=== PATIENT | male | born 1950 | race Caucasian/White ===

== ENCOUNTER → 2022-06-29 11:53 | Outpatient (BNVA) | payer MEDICARE, OTHER, SELFPAY | PROVIDERS: PCP Family Medicine; Visit Provider Family Medicine | DX: N18.9 Chronic kidney disease, unspecified (principal); E11.69 Type 2 diabetes mellitus with other specified complication; E66.9 Obesity, unspecified; M10.9 Gout, unspecified; E55.9 Vitamin D deficiency, unspecified; L29.9 Pruritus, unspecified; R07.9 Chest pain, unspecified; R94.39 Abnormal result of other cardiovascular function study; F41.9 Anxiety disorder, unspecified; N40.0 Benign prostatic hyperplasia without lower urinary tract symptoms | CPT/HCPCS: 80053; 80061; 81000; 82043; 82306; 82310; 82728; 83036; 83735; 83970; 84443; 84550; 85025 ==

== ENCOUNTER → 2022-08-04 12:07 | Outpatient (BNVA) | payer MEDICARE, OTHER, SELFPAY | PROVIDERS: PCP Family Medicine; Visit Provider Family Medicine | DX: N18.9 Chronic kidney disease, unspecified (principal); E11.69 Type 2 diabetes mellitus with other specified complication; E66.9 Obesity, unspecified; M10.9 Gout, unspecified; F41.9 Anxiety disorder, unspecified; N40.0 Benign prostatic hyperplasia without lower urinary tract symptoms; R07.9 Chest pain, unspecified; R94.39 Abnormal result of other cardiovascular function study | CPT/HCPCS: 80048 ==

== ENCOUNTER 2022-08-15 07:28 | Outpatient (CLI) | payer MEDICARE, OTHER, SELFPAY ==
--- NOTE | 2022-08-15 08:00 | USCV_ITS ---
Francisco Neal Age: 72 Gender: M : 1950 Exam Date: 08/15/2022 07:41 Ordering Phys: Arelis Field MD Technologist: Hernan Mckenzie Exam Location: [facility] Indication: abnormal echo BP: 132 / 75 HR: 77 Rhythm: Sinus Technical Quality: Adequate MEASUREMENTS (Male / Female) Normal Values 2D ECHO LV Diastolic Diameter PLAX 4.2 cm 4.2 - 5.9 / 3.9 - 5.3 cm LV Systolic Diameter PLAX 2.2 cm IVS Diastolic Thickness 1.2 cm 0.6 - 1.0 / 0.6 - 0.9 cm IVS Systolic Thickness 1.3 cm LVPW Diastolic Thickness 0.8 cm 0.6 - 1.0 / 0.6 - 0.9 cm LVPW Systolic Thickness 1.4 cm LVOT Diameter 2.1 cm LV Ejection Fraction 2D Teich 79.4 % LV Ejection Fraction MOD 2C 73.1 % LV Ejection Fraction 2C AL 73.5 % LA Diameter 3.9 cm IVC Diameter 1.5 cm M-MODE Aortic Annulus Diameter 3.7 cm LA Ao Ratio MM 1.0 MV E Point Septal Separation 1.0 cm DOPPLER AV Peak Velocity 119.0 cm/s LVOT Peak Velocity 92.0 cm/s AV Area Cont Eq vti 3.0 cm squared AV Area Cont Eq pk 2.6 cm squared MV Area PHT 5.0 cm squared Mitral E to A Ratio 0.6 MV E' Velocity 29.0 cm/s Mitral E to MV E' Ratio 5.6 Mitral E to LV E' Lateral Ratio 5.6 Mitral E to LV E' Septal Ratio 5.6 TR Peak Velocity 196.0 cm/s TR Peak Gradient 15.4 mmHg TV Peak E Velocity 94.0 cm/s Right Atrial Pressure 3.0 mmHg Pulmonary Artery Systolic Pressu 18.4 mmHg RV Acceleration Time 0.2 s FINDINGS Left Ventricle Normal left ventricular size with slightly diminished ejection fraction of 50%. Mild diffuse hypokinesia of the lateral wall segments. Grade I/IV diastolic dysfunction (abnormal relaxation filling pattern), normal to mildly elevated filling pressures. Right Ventricle The right ventricle is normal in size and function. Right Atrium The right atrium is normal in size. Left Atrium Normal left atrial size. Mitral Valve Mildly thickened mitral valve. Mild mitral annular calcification. Aortic Valve Thickened aortic valve. Tricuspid Valve No gross abnormalities noted Pulmonic Valve No gross abnormalities noted Pericardium No pericardial effusion. Aorta Normal ascending aorta dimension. IVC The inferior vena cava appears normal. CONCLUSIONS Normal left ventricular size with slightly diminished ejection fraction of 50%.(Visual). Mild diffuse hypokinesia of the lateral wall segments. Grade I/IV diastolic dysfunction (abnormal relaxation filling pattern), normal to mildly elevated filling pressures. Mildly thickened mitral valve. Mild mitral annular calcification. Thickened aortic valve. There is no pericardial effusion. There are no intracardiac masses. No similar previous studies are available for comparison Dr Martha Power MD FACC (Electronically Signed) Final Date: 15 August 2022 19:49 S
== END 2022-08-15 07:29 | disposition home or self-care (01) ==
LOC: RAD 07:28
PROVIDERS: PCP Family Medicine; Visit Provider Family Medicine
DX: I08.0 Rheumatic disorders of both mitral and aortic valves (principal); R07.9 Chest pain, unspecified; R94.39 Abnormal result of other cardiovascular function study
CPT/HCPCS: 93306

== ENCOUNTER 2022-09-07 07:51 | Outpatient (CLI) | payer MEDICARE, OTHER, SELFPAY ==
--- NOTE | 2022-09-07 | ECG_ITS ---
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 Interpretive Statements NAME OF STUDY: LEXISCAN SESTAMIBI STRESS TEST INDICATION: Chest Pain PROCEDURE: At the baseline, the blood pressure was 131/67 mm Hg with a heart rate of 67 bpm. The electrocardiogram showed sinus rhythm, normal axis. Normal ST and T's. ??? The Lexiscan was infused over a period of 20 seconds. A total of 0.4 milligrams of Lexiscan was infused. The stress phase was continued for a total of 5 minutes. Heart rate at the end of the stress phase was 86 bpm with a blood pressure of 134/49 mm Hg. The EKG at the peak infusion revealed sinus rhythm with no significant ST and T wave changes. ??? Sestamibi was injected 20 seconds after the Lexiscan infusion. ??? Blood pressure at the end of the recovery phase was 135/59 mm Hg with a heart rate of 86 beats per minute. ??? CONCLUSION: 1. No significant EKG changes with the LexiScan infusion. 2. No LexiScan induced chest pain or cardiac arrhythmia. 3. Normal blood pressure and heart rate response. 4. Sestamibi/sestamibi perfusion scan pending; see separate report. Electronically Signed On 09-11-2022 9:42:31 PROGRAM ATTENDANT by Ting Solis M.D. [id number]
[2022-09-07 08:16] VITALS: BMI 38.6
--- NOTE | 2022-09-07 08:43 | NMCV_ITS ---
NM shira perf SPECT r/s* [id number] Francisco Neal Age: 72 Gender: M : 1950 Exam Date: 09/07/2022 08:43 Ordering Phys: Arelis Field MD Technologist: DARSHAN Vasquez Exam Location: [facility] Indications: CHEST PAIN STRESS TEST Please see separate [facility] for full findings IMAGE PROTOCOL Rest/Stress 1 Lexiscan Day Radiopharmaceutical Dose (mCi) Administration Site Administered by Rest: Tc-99m 11.0 IV DARSHAN Junior Sestamibi Stress:Tc-99m 32.4 IV DARSHAN Junior Sestamibi Rest: 07-Sep-2022 60 Discovery 630 Stress: 07-Sep-2022 30 Discovery 630 0.4mg Lexiscan. Images obtained in supine and prone position. SPECT RESULTS Technical Quality: Excellent Raw Data Analysis: Normal Image Corrections: No attenuation or motion correction applied Summed Stress Score: 0 Summed Rest Score: 0 Summed Difference Score: 0 PERFUSION FINDINGS Small sized perfusion abnormality of mild severity of apical inferior and apical septal hoffman on rest images with improved tracer uptake on stress images. This is suggestive of attenuation artifact. FUNCTIONAL RESULTS (calculated via Gated SPECT) Stress Image LV EF (%): 72 Stress EDV (mL):97 TID: 0.97 Stress ESV (mL):27 FUNCTIONAL FINDINGS: The left ventricle is normal in size. Transient Ischemia Dilatation of 0.97. The left ventricular ejection fraction is normal with a value of 72%. There is normal left ventricular wall thickening. Normal end diastolic and end systolic volumes. IMPRESSIONS 1. Myocardial perfusion imaging is normal. 2. Overall left ventricular systolic function is normal without regional wall motion abnormalities, LVEF=72%. 3. EKG portion of the study will be reported separately. 4. Scan indicates low risk for cardiac events. Ting Solis MD (Electronically Signed) Final Date: 07 September 2022 12:58 S
[2022-09-07] MEDS: regadenoson 0.4 Mg/5 ml Syringe IVP (09:51)
[2022-09-07 10:25] VITALS: BP 136/85; PULSE 72
== END 2022-09-07 07:52 | disposition home or self-care (01) ==
LOC: CDL 07:57
PROVIDERS: PCP Family Medicine; Visit Provider Family Medicine
DX: R07.9 Chest pain, unspecified (principal)
CPT/HCPCS: 36415; 78452; 93017; 96374; A9500; J2785

== ENCOUNTER 2024-04-11 10:28 | Observation (INO) | payer MEDICARE, OTHER, SELFPAY ==
[2024-04-11] VITALS (10 sets, daily range): BP systolic 110–143; BP diastolic 57–87; PULSE 92–98; RESP 18–21; TEMP 36.6; O2SAT 94–99
--- NOTE | 2024-04-11 10:52 | ECG_ITS ---
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 Measurements Intervals [place] Rate: 96 P: 32 TX: 183 QRS: 5 QRSD: 94 T: 27 QT: 347 QTc: 439 Interpretive Statements SINUS RHYTHM INDETERMINATE AXIS LOW QRS VOLTAGE [QRS DEFLECTION < 0.5/1.0 mV IN LIMB/CHEST LEADS] MINIMAL ST DEPRESSION [0.025+ mV ST DEPRESSION] No previous ECG available for comparison Electronically Signed On 04-11-2024 11:19:17 CDT by Sage Rayo M.D. [id number]
--- NOTE | 2024-04-11 10:52 | XR_ITS ---
WS: [id number] XR chest 1V portable [id number] REASON FOR EXAM: dyspnea/cough FINDINGS: The heart and mediastinum are within normal limits. There is calcified granulomas disease in both hemithoraces. There is elevation of the right hemidiaphragm. No acute or subacute pulmonary parenchymal or pleural abnormality. Moderate degenerative spondylosis in the mid and lower thoracic spine. Significant osteoarthritis in both shoulder joints. XR/XR chest 1V portable [id number] IMPRESSION: No acute chest abnormality.
[2024-04-11 10:59] LABS: Basophils % 0.4 %; Eosinophils # 0.3 10^3/uL (0.0-0.8); Eosinophils % 3.8 %; Hematocrit 30.2 % (37-53); Lymphocytes # 1.6 10^3/uL (0.8-4.8); Lymphocytes % 22.8 %; Mean Corpuscular HGB Conc 30.8 g/dL (30-55); Mean Corpuscular Hemoglobin 28.2 pg (27-33); Mean Corpuscular Volume 91.5 fl (82-101); Mean Platelet Volume 9.4 fL (7.4-10.4); Monocytes # 0.4 10^3/uL (0.2-0.9); Monocytes % 6.1 %; Neutrophils # 4.49 10^3/uL (1.8-7.7); Neutrophils % 65.2 %; Nucleated Red Blood Cells % 0 %; Platelet Count 377 10^3/cmm (157-399); Red Cell Distribution Width 14.2 % (12.1-15.1); White Blood Count 6.89 10^3/uL (3.29-11.43)
[2024-04-11 11:20] LABS: Alanine Aminotransferase 15 U/L (0-41); Albumin Level 3.4 g/dL (3.5-5.2); Alkaline Phosphatase 115 U/L (40-130); Blood Urea Nitrogen 12 mg/dL (8-23); Calcium 8.6 mg/dL (8.5-10.5); Carbon Dioxide 24 mmol/L (22-29); Chloride 103 mmol/L (98-107); Creatinine Clr Calc Pharmacy 61.3732; Globulin 2.6 g/dL (1.3-4.6); Glucose 190 mg/dL (65-115); Osmolality Calculated 295 mOsm/kg (285-295); Sodium 140 mmol/L (136-145); Total Bilirubin 0.2 mg/dL (0.15-1.2)
[2024-04-11 11:23] LABS: Anion Gap 17.9 (5-19); Aspartate Amino Transferase 24 U/L (0-40); Potassium 4.9 mmol/L (3.5-5.1)
--- NOTE | 2024-04-11 11:45 | CT_ITS ---
WS: [id number] CT HEAD NONCONTRAST HISTORY: AMS - recent unwitnessed fall TECHNIQUE: Contiguous axial imaging performed through the brain in 2.5 mm imaging. Bone and soft tiss ue windows. Sagittal and coronal reformats reviewed. All CT scans at [facility] use at least one of these dose optimization techniques: automated exposure control; mA and/or kV adjustment per pa tient size (includes targeted exams where dose is matched to clinical indication); or iterative recon struction. DLP: 1073.18 mGy.cm COMPARISON: 02/14/2024 No acute intracranial hemorrhage, midline shift or mass effect. Diffuse cerebral atrophy and chronic microvascular white matter disease. No acute infarct or sulcal e ffacement. Similar to the prior study. Mild cerebellar atrophy. Ventricles: Normal size with no hydrocephalus. Paranasal sinuses: As visualized are clear. Mastoid air cells: Well pneumatized. Calvarium and scalp: No skull fracture. Acute small scalp hematoma centered over the LEFT lateral fro ntal bone. CT/CT head wo con* [id number] IMPRESSION: 1. No acute intracranial hemorrhage or edema. 2. Diffuse atrophy with small vessel ischemic disease. 3. Small acute LEFT frontal scalp hematoma.
[2024-04-11 12:06] LABS: Charge for UA Resulting for Rev
[2024-04-11 12:09] LABS: Lactic Sepsis W/Reflex 2.4 mmol/L (0.5-2.2)
--- NOTE | 2024-04-11 12:16 | ED_ITS ---
HPI - Altered Mental Status 2 General: Chief Complaint: Altered Mental Status Stated Complaint: ams Time Seen by Provider: 04/11/24 10:35 History of Present Illness: 74-year-old male brought in from local [facility] by EMS. Report of a fall last evening increasing altered mental status. He was admitted to the group home for rehab from the [facility]. His only complaint at the time we see him was complaining of discomfort with urination denies chest pain or shortness of breath he is rather pleasantly confused at this time Review of Systems 2 Const: Denies: fever(s) or chills Card: Denies: chest pain Resp: Denies: dyspnea GI: Denies: abdominal pain : Reports: dysuria; Denies: urinary frequency or urinary urgency Musc: Denies: neck pain or back pain Skin/Breast: Denies: rash PFSH ED 2 PFSH: Medical History History of asthma BPH (benign prostatic hyperplasia) Anxiety Gout Diabetes mellitus type 2 in obese Chronic kidney disease Osteoarthritis of knees, bilateral Surgical History History of cardiac catheterization History of nasal septoplasty History of excision of mass abdominal wall hematoma Family History Father CAD (coronary artery disease) Hypertension Lung disease Hyperlipidemia Mother Cancer Sister Diabetes Cancer Denies family history of Dementia Chronic kidney disease (CKD) Stroke Social History Smoking and tobacco/nicotine status: former use of tobacco/nicotine Quit status (tobacco/nicotine): has quit using Year quit tobacco: 2009 Alcohol intake: former Year of sobriety/quit date alcohol: 1999 Substance/Drug Use: never Marital status: Number of children: 3 service: No Physical Exam 2 Const: GENERAL APPEARANCE: cooperative NUTRITIONAL APPEARANCE: obese O RIENTATION/CONSCIOUSNESS: Yes awake and Yes confused HENMT: COMMON NORMALS: normocephalic, atraumatic and hearing grossly normal bilaterally HEAD & SCALP: normocephalic and atraumatic Resp: COMMON NORMALS: normal respiratory effort, No retractions, No use of accessory muscles and clear to auscultation bilaterally AUSCULTATION: clear to auscultation bilaterally Cardio: COMMON NORMALS: regular rate, regular rhythm and No murmurs present (Cardio) RATE: regular rate RHYTHM: regular rhythm GI: COMMON NORMALS: Soft to palpation and No hepatosplenomegaly present A USCULTATION: Yes normoactive bowel sounds PALPATION: Yes Soft to palpation, No Tenderness to palpation present (GI), No Guarding due to palpation present (GI) and Yes No hepatosplenomegaly present Extremity: COMMON NORMALS: normal to inspection, capillary refill normal, no clubbing, cyanosis or edema, no calf tenderness and no pedal edema NARRATIVE EXTREMITY EXAM: 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 His lactic acid is slightly elevated his blood gas was unremarkable. He has no tachycardia or hypoxia he does have mild chronic kidney issue. Previously his CPK has been elevated repeat CPK today is normal. Ammonia level is also normal we will admit with lactic acidosis altered mental status discussed with hospitalist orders written Lab Data 04/11/24 10:18 04/11/24 10:18 Radiology Impressions Chest X-Ray 04/11/24 10:52 IMPRESSION: No acute chest abnormality. Head CT 04/11/24 11:45 IMPRESSION: 1. No acute intracranial hemorrhage or edema. 2. Diffuse atrophy with small vessel ischemic disease. 3. Small acute LEFT frontal scalp hematoma. Laboratory Results WBC 6.89 10^3/uL (3.29-11.43) 04/11/24 10:18 RBC 3.30 10^6/uL (3.85-5.65) L 04/11/24 10:18 Hgb 9.30 g/dL (11.27-16.99) L 04/11/24 10:18 Hct 30.2 % (37-53) L 04/11/24 10:18 MCV 91.5 fl (82-101) 04/11/24 10:18 MCH 28.2 pg (27-33) 04/11/24 10:18 MCHC 30.8 g/dL (30-55) 04/11/24 10:18 RDW 14.2 % (12.1-15.1) 04/11/24 10:18 Plt Count 377 10^3/cmm (157-399) 04/11/24 10:18 MPV 9.4 fL (7.4-10.4) 04/11/24 10:18 Neut % (Auto) 65.2 % 04/11/24 10:18 Lymph % (Auto) 22.8 % 04/11/24 10:18 [place] % (Auto) 6.1 % 04/11/24 10:18 Eos % (Auto) 3.8 % 04/11/24 10:18 Baso % (Auto) 0.4 % 04/11/24 10:18 Neut # (Auto) 4.49 10^3/uL (1.8-7.7) 04/11/24 10:18 Lymph # (Auto) 1.6 10^3/uL (0.8-4.8) 04/11/24 10:18 [place] # (Auto) 0.4 10^3/uL (0.2-0.9) 04/11/24 10:18 Eos # (Auto) 0.3 10^3/uL (0.0-0.8) 04/11/24 10:18 Baso # (Auto) 0.0 10^3/uL (0.0-0.1) 04/11/24 10:18 Nucleated RBC % (auto) 0 % 04/11/24 10:18 Nucleated RBCs # 0.0 /100WBC 04/11/24 10:18 D-Dimer 2.53 ug/mLFEU (0-0.59) H 04/11/24 10:18 Specimen Type Arterial 04/11/24 12:25 Sample Site Radial, right 04/11/24 12:25 ABG pH 7.42 (7.35-7.45) 04/11/24 12:25 ABG pCO2 39.9 mmHg (35-45) 04/11/24 12:25 ABG pO2 75.5 mmHg (80.0-100.0) L 04/11/24 12:25 ABG PO2/FiO2 Ratio 359 04/11/24 12:25 ABG HCO3 26.0 mmol/L (22-26) 04/11/24 12:25 ABG O2 Saturation 96.0 04/11/24 12:25 ABG Base Excess 1.4 mmol/L (-2.0-2.0) 04/11/24 12:25 Nahun Test Pos 04/11/24 12:25 A-a O2 Gradient 3.2 mmHg (5-10) L 04/11/24 12:25 Hematocrit 29.4 % (42-52) L 04/11/24 12:25 Hgb O2 Saturation 94.2 % (95-100) L 04/11/24 12:25 Carboxyhemoglobin 1.0 %THgb (0.4-20.1) 04/11/24 12:25 Methemoglobin 0.9 % (0.4-1.5) 04/11/24 12:25 Total Hemoglobin 9.6 g/dL (14-18) L 04/11/24 12:25 Sodium 142.0 mmol/L (131-143) 04/11/24 12:25 Potassium 4.0 mmol/L (3.5-5.0) 04/11/24 12:25 Glucose 162.0 mg/dL (70-115) H 04/11/24 12:25 Ionized Calcium 1.2 mmol/L (1.1-1.4) 04/11/24 12:25 O2 Delivery Device Room air 04/11/24 12:25 FiO2 21.0 % 04/11/24 12:25 Culinary Specialist ID [place] 04/11/24 12:25 Sodium 140 mmol/L (136-145) 04/11/24 10:18 Potassium 4.9 mmol/L (3.5-5.1) 04/11/24 10:18 Chloride 103 mmol/L (98-107) 04/11/24 10:18 Carbon Dioxide 24 mmol/L (22-29) 04/11/24 10:18 Anion Gap 17.9 (5-19) 04/11/24 10:18 BUN 12 mg/dL (8-23) 04/11/24 10:18 Creatinine 1.4 mg/dL (0.7-1.2) H 04/11/24 10:18 GFR Calculation Not Reportable 04/11/24 10:18 Glucose 190 mg/dL (65-115) H 04/11/24 10:18 Calculated Osmolality 295 mOsm/kg (285-295) 04/11/24 10:18 Lactic Acid 2.4 mmol/L (0.5-2.2) H 04/11/24 10:18 Lactic Acid (Sepsis) 2.3 mmol/L (0.5-2.2) H 04/11/24 13:06 Calcium 8.6 mg/dL (8.5-10.5) 04/11/24 10:18 Total Bilirubin 0.2 mg/dL (0.15-1.2) 04/11/24 10:18 AST 24 U/L (0-40) 04/11/24 10:18 ALT 15 U/L (0-41) 04/11/24 10:18 Alkaline Phosphatase 115 U/L (40-130) 04/11/24 10:18 Ammonia 31 umol/L (16-60) 04/11/24 16:15 Creatine Kinase 68 U/L (39-308) 04/11/24 10:18 Total Protein 6.0 g/dL (6.6-8.7) L 04/11/24 10:18 Albumin 3.4 g/dL (3.5-5.2) L 04/11/24 10:18 Globulin 2.6 g/dL (1.3-4.6) 04/11/24 10:18 Urine Color Yellow (Yellow) 04/11/24 12:00 Urine Appearance Clear (CLEAR) 04/11/24 12:00 Urine pH 5.5 (5-7) 04/11/24 12:00 Ur Specific [place] 1.016 (1.005-1.030) 04/11/24 12:00 Urine Protein Negative (Negative) 04/11/24 12:00 Urine Glucose (UA) Negative (Normal) 04/11/24 12:00 Urine Ketones Negative (Negative) 04/11/24 12:00 Urine Blood Negative (Negative) 04/11/24 12:00 Urine Nitrate Negative (Negative) 04/11/24 12:00 Urine Bilirubin Negative (Negative) 04/11/24 12:00 Urine Urobilinogen 1.0 mg/dL (Negative) 04/11/24 12:00 Ur Leukocyte Esterase Negative (Negative) 04/11/24 12:00 Amorphous Sediment Not Reportable 04/11/24 12:00 All radiology interpretation(s) finalized by discharge Discharge Plan Discharge Patient Disposition: Placed in Observation Admit Provider: Krystal Eubanks Clinical Impression: Altered mental status, Chronic kidney disease, Elevated lactic acid level Condition: Stable Coding Level of Care Code ED Marine Rigger for Lyudmila Hauser
[2024-04-11 12:18] LABS: Bilirubin Urine Negative (Negative); Blood Urine Negative (Negative); Glucose Urine UA Negative (Normal); Ketones Urine Negative (Negative); Leukocyte Esterase Urine Negative (Negative); Nitrate Urine Negative (Negative); Protein Urine Negative (Negative); Specific Gravity, Urine 1.016 (1.005-1.030); Urine Appearance Clear (CLEAR); Urine Color Yellow (Yellow); pH Urine 5.5 (5-7)
[2024-04-11 12:36] LABS: ABG PCO2 39.9 mmHg (35-45); ABG PH Result 7.42 (7.35-7.45); Alveolar-Arterial Oxygen Gradi 3.2 mmHg (5-10); Arterial Blood Gas Hematocrit 29.4 % (42-52); Base Excess ABG 1.4 mmol/L (-2.0-2.0); Blood Gas Allen Test Pos; Blood Gas Operator Identificat WALCI; Blood Gas Sample Site Radial, right; Blood Gas Sample Type Arterial; HGB O2 Sat 94.2 % (95-100); Ionized Calcium Level - ABG 1.2 mmol/L (1.1-1.4); Methemoglobin 0.9 % (0.4-1.5); Oxygen Device ROOM AIR; PO2 ABG 75.5 mmHg (80.0-100.0); PO2 FiO2 Ratio Arterial Blood 359; Total Hemoglobin 9.6 g/dL (14-18)
[2024-04-11] MEDS: sodium chloride 0.9% 1,000 ML 999 ML IV (13:03)
--- NOTE | 2024-04-11 13:21 | PC.PHAR ---
PER ARDEN WAGNER-PT HAS NOT HAD MEDS SINCE YESTERDAY. NOTHING GIVEN TODAY.
[2024-04-11 13:35] LABS: Reflex Lactate Order REFLEX LACTIC ORDERD
[2024-04-11 14:05] LABS: Lactic Acid level (Lactate) 2.3 mmol/L (0.5-2.2)
[2024-04-11 15:42] LABS: Creatine Phosphokinase 68 U/L (39-308)
--- NOTE | 2024-04-11 16:18 | P.HP_ITS ---
Providers/Chief Complaint 2 Primary Care Provider: Arelis Field MD Chief Complaint: ams History of Present Illness Francisco Neal is a 74 year old male who had a stroke on February 14, he was treated at a different hospital, I called his sister to get more information she is stating that he remain in, for 6 days and then stayed in the hospital for about 20 days he started having seizures and his mentation has been getting worse since then. Sister is stating that some days he would be fine but other days he would just not make any sense. He was sent to the hospital for further evaluation of his confusion. At the time of evaluation patient is able to eat, able to tell me his name and date of but as per the nursing staff he was having visual hallucination. Patient is stating that he is not able to ambulate on his own, he has significant swelling of his legs and he just sleeps in and out of wheelchair. He is not complaining of chest pain diarrhea abdominal pain. He wanted me to get a urinal so he could use it. He is agreeable for Sanchez catheter overnight. Considering high D-dimer we will request venous Doppler CTA chest abdomen pelvis. From my understanding patient likely had an ischemic stroke Sister stating that his oxygen was not going towards his brain and there was no bleeding he was at [facility] Review of Systems 2 Const: Denies: fever(s) Eyes: Denies: change in vision ENMT: Denies: throat pain Card: Denies: chest pain Resp: Denies: dyspnea GI: Denies: abdominal pain Medications/Allergies Home Medications Medication Instructions Recorded Confirmed Last Taken Type acetaminophen 500 mg tablet 1,000 mg PO Q6H PRN Pain 04/11/24 04/11/24 Unknown History amlodipine 10 mg tablet 10 mg PO DAILY 04/11/24 04/11/24 04/10/24 History aspirin 81 mg tablet,delayed 81 mg PO DAILY 04/11/24 04/11/24 04/10/24 History release atorvastatin 40 mg tablet 40 mg PO DAILY 04/11/24 04/11/24 04/10/24 History bisacodyl 10 mg rectal suppository 10 mg SC DAILY PRN Constipation 04/11/24 04/11/24 Unknown History bisacodyl 5 mg tablet 10 mg PO BID PRN Constipation 04/11/24 04/11/24 Unknown History clobazam 10 mg tablet 5 mg PO BID 04/11/24 04/11/24 04/10/24 History gabapentin 100 mg capsule 100 mg PO TID 04/11/24 04/11/24 04/10/24 History insulin aspart (niacinamide) See Rx Instructions .Route .COMPLEX 04/11/24 04/11/24 04/10/24 History (U-100) 100 unit/mL subcutaneous solution (Fiasp U-100 Insulin) lacosamide 10 mg/mL oral solution 100 mg PO BID 04/11/24 04/11/24 04/10/24 History (Vimpat) levetiracetam 100 mg/mL oral 7.5 mg PO BID 04/11/24 04/11/24 04/10/24 History solution lidocaine 5 % topical patch See Rx Instructions .Route .COMPLEX 04/11/24 04/11/24 04/10/24 History (Lidoderm) magnesium hydroxide 400 mg/5 mL 15 ml PO DAILY PRN Constipation 04/11/24 04/11/24 Unknown History oral suspension (Milk of Magnesia) melatonin 5 mg tablet 5 mg PO BEDTIME 04/11/24 04/11/24 04/10/24 History methocarbamol 500 mg tablet 500 mg PO TID PRN MUSCLE SPASMS 04/11/24 04/11/24 Unknown History polyethylene glycol 3350 17 See Rx Instructions .Route 04/11/24 04/11/24 Unknown History gram/dose oral powder (Miralax) .COMPLEX PRN Constipation quetiapine 25 mg tablet (Seroquel) See Rx Instructions .Route .COMPLEX 04/11/24 04/11/24 04/10/24 History sodium phosphates 19 gram-7 118 ml SC DAILY PRN Constipation 04/11/24 04/11/24 Unknown History gram/118 mL enema (Fleet Enema) tramadol 50 mg tablet 50 mg PO TID PRN Pain 04/11/24 04/11/24 Unknown History Allergies Allergy/AdvReac Type Severity Reaction Status Date / Time acetaminophen Allergy ADR-Abdominal Verified 04/11/24 10:45 [From Tylenol-Codeine #3] Pain codeine Allergy ADR-Abdominal Verified 04/11/24 10:45 [From Tylenol-Codeine #3] Pain PFSH Acute 2 PFSH: Medical History (Updated 04/11/24 @ 18:51 by Krystal Eubanks MD) 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, stroke with seizure History of asthma BPH (benign prostatic hyperplasia) Anxiety Gout Diabetes mellitus type 2 in obese Chronic kidney disease Osteoarthritis of knees, bilateral Surgical History History of cardiac catheterization History of nasal septoplasty History of excision of mass abdominal wall hematoma Family History Father CAD (coronary artery disease) Hypertension Lung disease Hyperlipidemia Mother Cancer Sister Diabetes Cancer Denies family history of Dementia Chronic kidney disease (CKD) Stroke Social History Smoking and tobacco/nicotine status: former use of tobacco/nicotine Quit status (tobacco/nicotine): has quit using Year quit tobacco: 2009 Alcohol intake: former Year of sobriety/quit date alcohol: 1999 Substance/Drug Use: never Marital status: Number of children: 3 service: No Vitals/I&O/Wt Last Vital Signs Temp 97.8 F 04/11/24 10:29 Pulse 96 04/11/24 12:02 Resp 21 H 04/11/24 10:29 BP 122/68 04/11/24 12:02 Pulse Ox 98 04/11/24 12:02 O2 Del Method Room Air 04/11/24 12:02 Weight last 48 hrs Weight 117.934 kg Physical Exam 2 Narrative: Patient has significant swelling of lower extremities Does not have significant strengths to move them independently Left upper amputee Patient has stage II ulcer in between his arm and chest area Awake and alert Able to tell me his name and date of Also experiencing visual elucidation Was able to make his needs known Able to eat dinner Pleasant and cooperative Hemodynamic stable S1, S2 Currently on room air Data 04/11/24 10:18 04/11/24 10:18 Micro: Microbiology 04/11/24 13:10 Blood Culture - Preliminary Blood SPECIMEN COLLECTED 04/11/24 13:06 Blood Culture - Preliminary Blood SPECIMEN COLLECTED A&P Assessment and plan (1) Anxiety: (2) Altered mental status: (3) Elevated lactic acid level: Plan Visual hallucination Mentation is fluctuant Alert and awake Short attention span High D-dimer request CTA chest and pelvis will request venous Doppler lower extremity Had a stroke on February 14 then developed seizure remained in the hospital for 20 days patient was not medical, for 6 days as well I do believe his symptoms are related to recent brain trauma related to stroke and seizure I will resume antiepileptics Continue IV fluids overnight Request Sanchez catheter Patient is hemodynamically stable Spoke with his sister to get more information Patient has poor attention span Chronic kidney disease: Creatinine at baseline Type II diabetic continue insulin sliding scale I will continue Seroquel at nighttime No sign of UTI patient is complaining of burning on micturition I will keep ceftriaxone on board Full code Sister is medical DPOA Attestations 2 Medical Necessity Statement*: Anticipate discharge within 40 hours Diagnoses Anxiety F41.9 Altered mental status R41.82 Elevated lactic acid level R79.89
[2024-04-11 16:37] LABS: Ammonia 31 umol/L (16-60)
[2024-04-11 16:42] LABS: D Dimer 2.53 ug/mLFEU (0-0.59)
--- NOTE | 2024-04-11 18:24 | CTR_ITS ---
PROCEDURE INFORMATION: Exam: CTA Chest With Contrast CTA Abdomen and Pelvis With Contrast Exam date and time: 04/11/2024 9:01 PM Age: 74 years old Clinical indication: Other: AMS TECHNIQUE: Imaging protocol: Computed tomographic angiography of the chest with contrast. Exam focused on the arteries. Computed tomographic angiography of the abdomen and pelvis with contrast. Exam focused on the arteries. 3D rendering (Not supervised by radiologist): MIP and/or 3D reconstructed images were created by the technologist. Radiation optimization: All CT scans at this facility use at least one of these dose optimization techniques: automated exposure control; mA and/or kV adjustment per patient size (includes targeted exams where dose is matched to clinical indication); or iterative reconstruction. Contrast material: OMNI 350; Contrast volume: 100 ml; Contrast route: INTRAVENOUS (IV); COMPARISON: [place] [id number] 02/14/2024 8:07 PM RADIATION DOSE METRICS: Total DLP (mGy-cm): 880 Other radiation dose metrics: Severe coronary artery calcifications. FINDINGS: VASCULATURE: Pulmonary arteries: Normal. No pulmonary emboli. Aorta: No aortic aneurysm. No aortic dissection. Mild atherosclerotic calcifications without stenosis. Celiac trunk and mesenteric arteries: No occlusion or significant stenosis. Moderate atherosclerotic calcifications within the origin of the celiac and mesenteric arteries without significant stenosis. Renal arteries: Atherosclerotic calcification of the origin of the bilateral renal arteries causes a mild degree of stenosis. Right iliac arteries: No occlusion or significant stenosis. Mild atherosclerotic calcifications. Left iliac arteries: No occlusion or significant stenosis. Mild atherosclerotic calcifications of the proximal left internal iliac artery. CHEST: Lungs: No consolidation. No masses. Pleural spaces: No pneumothorax. No pleural effusion. Heart: Cardiomegaly. No pericardial effusion. ABDOMEN AND PELVIS: Liver: No mass. Gallbladder and biliary ducts: Gallstone within the gallbladder head/neck. No wall thickening or pericholecystic inflammatory changes. No ductal dilation. Pancreas: Unremarkable. No mass. No ductal dilation. Spleen: Unremarkable. No splenomegaly. Adrenal glands: Unremarkable. No mass. Kidneys and ureters: Unremarkable. No solid mass. No hydronephrosis. Stomach and bowel: No obstruction. No mucosal thickening. Diverticulosis without evidence of diverticulitis. Appendix: No evidence of appendicitis. Intraperitoneal space: No free air. No significant fluid collection. Urinary bladder: Asnchez catheter within the bladder. Reproductive: Coarse prosthetic calcifications. Lymph nodes: Unremarkable. No enlarged lymph nodes. Bones/joints: No acute fracture. Chronic compression deformities of L1 and L3. Soft tissues: Moderate edema involving the left lateral abdomen. No focal fluid collections or abscesses. CT/CT [facility] [id number] IMPRESSION: 1. No acute vascular findings. 2. Gallstone within the gallbladder head/neck. No wall thickening or pericholecystic inflammatory changes. 3. Diverticulosis without evidence of diverticulitis. 4. Moderate edema involving the left lateral abdomen. No focal fluid collections or abscesses.
--- NOTE | 2024-04-11 18:41 | USCV_ITS ---
Francisco Neal Age: 74 Gender: M : 1950 Exam Date: 04/11/2024 20:16 Ordering Phys: Krystal Eubanks MD Technologist: CHAGO Exam Location: [facility] Indication: ble edema HISTORY: ble edema PROCEDURES: Venous duplex imaging was performed in bilateral lower extremities. The following venous structures were evaluated: common femoral vein, profunda vein, proximal portion of the greater saphenous vein, superficial femoral vein, and the popliteal vein. In addition, the posterior tibial veins were evaluated. Serial compression, augmentation maneuvers, and spectral Doppler flow evaluation were performed, which were normal. Bilaterally, the common femoral, superficial femoral, profunda femoral, popliteal, posterior tibial, and greater saphenous veins were identified and interrogated in the standard fashion. These veins were found to be easily compressible with spontaneous blood flow. No evidence of thrombus noted. CONCLUSIONS No evidence of right lower extremity DVT. No evidence of left lower extremity DVT. Eamon Gaytan MD (Electronically Signed) Final Date: 12 April 2024 10:16 S
[2024-04-11] MEDS: sodium chloride 0.9% 1,000 ML 75 ML IV (19:52)
[2024-04-11 20:17] LABS: Vitamin B12 377 pg/mL (232-1245)
[2024-04-11] MEDS: iohexol 350 mg/mL 500 mL Btl (per mL) IV (21:11)
[2024-04-11 21:15] LABS: Estmated Average Glucose 137; Hemoglobin A1C 6.4 % (4.0-6.0)
[2024-04-11] MEDS: bacitracin ointment Pkt 1 EACH TOPICAL (22:13)
[2024-04-11] MEDS: quetiapine 25 mg Tablet PO (22:13)
[2024-04-12] VITALS: BP 131/65; PULSE 97; RESP 18; TEMP 36.7; O2SAT 96
[2024-04-12 04:19] VITALS: BP 130/65; PULSE 89; RESP 17; TEMP 36.7; O2SAT 97
[2024-04-12 04:45] LABS: Basophils % 0.6 %; Eosinophils # 0.2 10^3/uL (0.0-0.8); Hematocrit 28.1 % (37-53); Lymphocytes # 1.1 10^3/uL (0.8-4.8); Lymphocytes % 20.8 %; Mean Corpuscular Hemoglobin 28.2 pg (27-33); Mean Corpuscular Volume 91.2 fl (82-101); Mean Platelet Volume 8.9 fL (7.4-10.4); Monocytes # 0.4 10^3/uL (0.2-0.9); Monocytes % 7.2 %; Neutrophils # 3.59 10^3/uL (1.8-7.7); Neutrophils % 66.7 %; Nucleated Red Blood Cells % 0 %; Platelet Count 326 10^3/cmm (157-399); Red Blood Count 3.08 10^6/uL (3.85-5.65); Red Cell Distribution Width 14.4 % (12.1-15.1); White Blood Count 5.38 10^3/uL (3.29-11.43)
[2024-04-12] MEDS: sodium chloride 0.9% 1,000 ML 75 ML IV (04:51)
[2024-04-12 05:05] LABS: Blood Urea Nitrogen 11 mg/dL (8-23); Calcium 7.9 mg/dL (8.5-10.5); Carbon Dioxide 23 mmol/L (22-29); Chloride 108 mmol/L (98-107); Creatinine Clr Calc Pharmacy 61.6346; Glucose 123 mg/dL (65-115); Magnesium 1.8 mg/dL (1.7-2.3); Osmolality Calculated 293 mOsm/kg (285-295); Phosphorus 3.1 mg/dL (2.5-4.5); Sodium 141 mmol/L (136-145)
[2024-04-12 06:34] LABS: Glucose Point of Care 134 mg/dL (70-110)
[2024-04-12 07:30] VITALS: BP 129/57; PULSE 85; RESP 17; TEMP 36.5; O2SAT 97
--- NOTE | 2024-04-12 09:04 | PC.CHAP ---
Pastoral Care Encounter/Spiritual Assessment Type of Contact [] Declined winding inspector visit [] Patient/Family/Request visit [] Outpatient visit [] Follow-up visit [] Physician referral [] Code/Alert [] Routine visit [] Staff referral [] Actively dying [] Patient sleeping [] Family support [] [] Out of room [] Palliative care [] [] Receiving care in room [] Pre-surgical visit [] Trauma [] Long length of stay [] ICU visit [] Other: Relational/Emotional Strength [] Patient feels connected with others/family/visitors/staff [] Distress [] Loneliness/isolation [] Abandonment Spirituality of Patient [] Person of Rosanna [] Attends Faith of their Rosanna [] Believes in Prayer [] Reads Bible or Sabianism materials [] There are Spiritual issues to be addressed Appraiser Land Interventions [] Prayer [] Active listening [] Non-anxious presence [] Spiritual/emotional support [] Crisis/trauma care [] Spiritual counseling [] Bereavement support [] Provided bereavement packet [] Provided Bible/devotional materials [] Provided toy/stuffed animal, coloring book to patient or family member [] Provided Communion [] Anointing/[place] [] Salvation [] Completed spiritual assessment [] Other: Impact on Illness or Injury [] Angry [] Fearful [] Anxious [] Often cries [] Exhaustion [] Unable to work [] Unable to attend jehovah's witness [] Unable to walk/stand [] Unable to read [] Unable to drive [] Unable to eat/drink [] Unable to sleep [] Unable to be with family [] Patient intubated [] Other: Summary Staff X2 Time spent with patient
[2024-04-12] MEDS: atorvastatin 40 mg Tablet PO (09:37)
[2024-04-12] MEDS: aspirin 81 mg EC Tablet PO (09:37)
[2024-04-12] MEDS: levETIRAcetam 1,000 mg/10 mL UDC 750 MG PO (09:37)
[2024-04-12] MEDS: sennosides-docusate Tablet 1 TAB PO (09:38)
[2024-04-12] MEDS: amlodipine 10 mg Tablet PO (09:38)
[2024-04-12] MEDS: cefTRIAXone 1,000 MG in sodium chloride 0.9% (plus) 50 ML 100 MG IV (09:38)
--- NOTE | 2024-04-12 09:51 | P.DS_ITS ---
Discharge Providers Date of Admission: 04/11/24 16:51 Date of Discharge: April 12, 2024 Attending Provider at Admission: Krystal Eubanks MD Attending Provider at Discharge: Krystal Eubanks MD Primary Care Provider: Arelis Field MD Diagnoses at Discharge Discharge Diagnosis (1) Anxiety: Status: Chronic (2) Altered mental status: Status: Acute (3) Elevated lactic acid level: Status: Acute Reason for Visit Reason for Visit: ams Hospital Course Hospital Course 74-year-old male who was admitted to the hospital for management evaluation of fluctuant mentation. Patient was admitted to [facility] patient had a stroke February 14, remained in ICU intubated for 6 days and then spent total 20 days in the hospital because patient was experiencing seizures after his stroke he was discharged to a local residential and then transferred to [place] in a residential. During this hospitalization patient remained awake and alert, he was able to answer questions appropriately, patient was able to walk with PT as well he is eating on his own, time to time he would experience visual hallucination other than that we have not noticed any new signs of seizure breakthrough symptoms or new focal deficits. Patient has skin maceration left chest area we applied topical bacitracin, he was kept on doxycycline as well his UA is unremarkable, CT head unremarkable other than stroke related changes which are old, he had high D-dimer we requested CTA chest abdomen pelvis with did not show any signs of thromboembolic disease, creatinine remained stable, no signs of DVT. Patient is full code, I took most of the information from his sister who is a medical DPOA patient asked me to talk with his sister as well. Sister is in agreement that since the previous stroke patient's mentation is fluctuant some days he can function well and other days he would hallucinate and become confused. I have not seen any reversible organic causes during this hospitalization. Patient could be experiencing severe related dementia with visual hallucinations Physical Exam Narrative: Patient walked 20 feet with PT Will remove Sanchez catheter Skin maceration left chest area Awake and alert Able to answer simple questions Patient was asked me to help him get in the bed after his breakfast He ate his breakfast on his own Urinary Catheter Management: Sanchez: Cath Placed During This Visit: yes Reason for Continuing Indwelling Catheter: Other Urinary Catheter Date of Insertion: 04/11/24 Urinary Catheter Time of Insertion: 20:21 Discharge Data Studies Completed and Pending Completed Studies During Hospitalization Category Date Time Status CT head wo con* [id number] Stat Cat Scan 04/11/24 11:45 Completed CTA chest abdomen pelvis [CT ang ches [place] 14660/ Cat Scan 04/11/24 18:24 Completed [id number]] Routine XR chest 1V portable [id number] Stat Exams 04/11/24 10:52 Completed Pending at discharge Category Date Time Status Blood Culture Stat Lab 04/11/24 13:10 [place] [id number] Routine Ultrasound 04/11/24 18:41 Taken Radiology Impressions Chest X-Ray 04/11/24 10:52 IMPRESSION: No acute chest abnormality. Head CT 04/11/24 11:45 IMPRESSION: 1. No acute intracranial hemorrhage or edema. 2. Diffuse atrophy with small vessel ischemic disease. 3. Small acute LEFT frontal scalp hematoma. Chest/Abdomen/Pelvis CTA 04/11/24 18:24 IMPRESSION: 1. No acute vascular findings. 2. Gallstone within the gallbladder head/neck. No wall thickening or pericholecystic inflammatory changes. 3. Diverticulosis without evidence of diverticulitis. 4. Moderate edema involving the left lateral abdomen. No focal fluid collections or abscesses. Laboratory Results WBC 5.38 10^3/uL (3.29-11.43) 04/12/24 04:38 RBC 3.08 10^6/uL (3.85-5.65) L 04/12/24 04:38 Hgb 8.70 g/dL (11.27-16.99) L 04/12/24 04:38 Hct 28.1 % (37-53) L 04/12/24 04:38 MCV 91.2 fl (82-101) 04/12/24 04:38 MCH 28.2 pg (27-33) 04/12/24 04:38 MCHC 31.0 g/dL (30-55) 04/12/24 04:38 RDW 14.4 % (12.1-15.1) 04/12/24 04:38 Plt Count 326 10^3/cmm (157-399) 04/12/24 04:38 MPV 8.9 fL (7.4-10.4) 04/12/24 04:38 Neut % (Auto) 66.7 % 04/12/24 04:38 Lymph % (Auto) 20.8 % 04/12/24 04:38 Grundy % (Auto) 7.2 % 04/12/24 04:38 Eos % (Auto) 3.0 % 04/12/24 04:38 Baso % (Auto) 0.6 % 04/12/24 04:38 Neut # (Auto) 3.59 10^3/uL (1.8-7.7) 04/12/24 04:38 Lymph # (Auto) 1.1 10^3/uL (0.8-4.8) 04/12/24 04:38 Grundy # (Auto) 0.4 10^3/uL (0.2-0.9) 04/12/24 04:38 Eos # (Auto) 0.2 10^3/uL (0.0-0.8) 04/12/24 04:38 Baso # (Auto) 0.0 10^3/uL (0.0-0.1) 04/12/24 04:38 Nucleated RBC % (auto) 0 % 04/12/24 04:38 Nucleated RBCs # 0.0 /100WBC 04/12/24 04:38 D-Dimer 2.53 ug/mLFEU (0-0.59) H 04/11/24 10:18 Specimen Type Arterial 04/11/24 12:25 Sample Site Radial, right 04/11/24 12:25 ABG pH 7.42 (7.35-7.45) 04/11/24 12:25 ABG pCO2 39.9 mmHg (35-45) 04/11/24 12:25 ABG pO2 75.5 mmHg (80.0-100.0) L 04/11/24 12:25 ABG PO2/FiO2 Ratio 359 04/11/24 12:25 ABG HCO3 26.0 mmol/L (22-26) 04/11/24 12:25 ABG O2 Saturation 96.0 04/11/24 12:25 ABG Base Excess 1.4 mmol/L (-2.0-2.0) 04/11/24 12:25 Nahun Test Pos 04/11/24 12:25 A-a O2 Gradient 3.2 mmHg (5-10) L 04/11/24 12:25 Hematocrit 29.4 % (42-52) L 04/11/24 12:25 Hgb O2 Saturation 94.2 % (95-100) L 04/11/24 12:25 Carboxyhemoglobin 1.0 %THgb (0.4-20.1) 04/11/24 12:25 Methemoglobin 0.9 % (0.4-1.5) 04/11/24 12:25 Total Hemoglobin 9.6 g/dL (14-18) L 04/11/24 12:25 Sodium 142.0 mmol/L (131-143) 04/11/24 12:25 Potassium 4.0 mmol/L (3.5-5.0) 04/11/24 12:25 Glucose 162.0 mg/dL (70-115) H 04/11/24 12:25 Ionized Calcium 1.2 mmol/L (1.1-1.4) 04/11/24 12:25 O2 Delivery Device Room air 04/11/24 12:25 FiO2 21.0 % 04/11/24 12:25 Employee Communications Manager ID [employer] 04/11/24 12:25 Sodium 141 mmol/L (136-145) 04/12/24 04:38 Potassium 4.0 mmol/L (3.5-5.1) 04/12/24 04:38 Chloride 108 mmol/L (98-107) H 04/12/24 04:38 Carbon Dioxide 23 mmol/L (22-29) 04/12/24 04:38 Anion Gap 14.0 (5-19) 04/12/24 04:38 BUN 11 mg/dL (8-23) 04/12/24 04:38 Creatinine 1.4 mg/dL (0.7-1.2) H 04/12/24 04:38 GFR Calculation Not Reportable 04/12/24 04:38 Glucose 123 mg/dL (65-115) H 04/12/24 04:38 POC Glucose 134 mg/dL (70-110) H 04/12/24 06:31 Estimat Average Glucose 137 04/11/24 10:18 Hemoglobin A1c 6.4 % (4.0-6.0) H 04/11/24 10:18 Calculated Osmolality 293 mOsm/kg (285-295) 04/12/24 04:38 Lactic Acid 2.4 mmol/L (0.5-2.2) H 04/11/24 10:18 Lactic Acid (Sepsis) 2.3 mmol/L (0.5-2.2) H 04/11/24 13:06 Calcium 7.9 mg/dL (8.5-10.5) L 04/12/24 04:38 Phosphorus 3.1 mg/dL (2.5-4.5) 04/12/24 04:38 Magnesium 1.8 mg/dL (1.7-2.3) 04/12/24 04:38 Total Bilirubin 0.2 mg/dL (0.15-1.2) 04/11/24 10:18 AST 24 U/L (0-40) 04/11/24 10:18 ALT 15 U/L (0-41) 04/11/24 10:18 Alkaline Phosphatase 115 U/L (40-130) 04/11/24 10:18 Ammonia 31 umol/L (16-60) 04/11/24 16:15 Creatine Kinase 68 U/L (39-308) 04/11/24 10:18 Total Protein 6.0 g/dL (6.6-8.7) L 04/11/24 10:18 Albumin 3.4 g/dL (3.5-5.2) L 04/11/24 10:18 Globulin 2.6 g/dL (1.3-4.6) 04/11/24 10:18 Vitamin B12 377 pg/mL (232-1245) 04/11/24 10:18 Urine Color Yellow (Yellow) 04/11/24 12:00 Urine Appearance Clear (CLEAR) 04/11/24 12:00 Urine pH 5.5 (5-7) 04/11/24 12:00 Ur Specific Juliette 1.016 (1.005-1.030) 04/11/24 12:00 Urine Protein Negative (Negative) 04/11/24 12:00 Urine Glucose (UA) Negative (Normal) 04/11/24 12:00 Urine Ketones Negative (Negative) 04/11/24 12:00 Urine Blood Negative (Negative) 04/11/24 12:00 Urine Nitrate Negative (Negative) 04/11/24 12:00 Urine Bilirubin Negative (Negative) 04/11/24 12:00 Urine Urobilinogen 1.0 mg/dL (Negative) 04/11/24 12:00 Ur Leukocyte Esterase Negative (Negative) 04/11/24 12:00 Amorphous Sediment Not Reportable 04/11/24 12:00 Vitals Last Vital Signs Temp 97.7 F 04/12/24 07:30 Pulse 85 04/12/24 07:30 Resp 17 04/12/24 07:30 BP 129/57 04/12/24 07:30 Pulse Ox 97 04/12/24 07:30 O2 Del Method Room Air 04/12/24 07:30 Discharge Plan Discharge Patient Disposition: Xfer SNF Condition: Stable Prescriptions: New levofloxacin 750 mg tablet 750 mg PO DAILY 5 Days Qty: 5 0RF Continued Seroquel 25 mg Tablet See Rx Instructions .ROUTE .COMPLEX Rx Instructions: TAKE 1 TABLET BY MOUTH TWICE DAILY FOR RESTLESSNESS AND AGGITATION AND GIVE 3 TABLETS AT BEDTIME. atorvastatin 40 mg Tablet 40 mg PO DAILY methocarbamol 500 mg Tablet 500 mg PO TID PRN (Reason: MUSCLE SPASMS) aspirin 81 mg Tablet,Delayed Release (Dr/Ec) 81 mg PO DAILY tramadol 50 mg Tablet 50 mg PO TID PRN (Reason: Pain) acetaminophen 500 mg Tablet 1,000 mg PO Q6H PRN (Reason: Pain) Milk of Magnesia 400 mg/5 mL Suspension 15 ml PO DAILY PRN (Reason: Constipation) amlodipine 10 mg Tablet 10 mg PO DAILY bisacodyl 10 mg Suppository 10 mg CA DAILY PRN (Reason: Constipation) Lidoderm 5 % Adhesive Patch,Medicated See Rx Instructions .ROUTE .COMPLEX Rx Instructions: APPLY 1 PATCH TOPICALLY IN THE MORNING AND REMOVE AT BEDTIME. Fleet Enema 19-7 gram/118 mL Enema 118 ml CA DAILY PRN (Reason: Constipation) gabapentin 100 mg Capsule 100 mg PO TID Miralax 17 gram/dose Powder See Rx Instructions .ROUTE .COMPLEX PRN (Reason: Constipation) Rx Instructions: TAKE 17 g (1 CAPFUL) MIXED IN 4 TO 8 OUNCES LIQUID AND DRINK ENTIRE LIQUID DAILY NEEDED FOR CONSTIPATION. bisacodyl 5 mg Tablet 10 mg PO BID PRN (Reason: Constipation) levetiracetam 100 mg/mL Solution 7.5 mg PO BID melatonin 5 mg Tablet 5 mg PO BEDTIME Vimpat 10 mg/mL Solution 100 mg PO BID clobazam 10 mg Tablet 5 mg PO BID Fiasp U-100 Insulin 100 unit/mL Solution See Rx Instructions .ROUTE .COMPLEX Rx Instructions: INJECT 3 TIMES DAILY PER SLIDING SCALE: BS 181-200= 3UNITS, 201/250= 6UNITS, 251-300= 9UNITS, 301-350= 12UNITS, 351-400= 15UNITS, 401-600= 18UNITS. IF GREATER THAN 400, GIVE 18UNITS AND LET PROVIDER KNOW. Discharge Orders: Discharge Order (Routine); Ordered 04/12/24 Ordered By: Krystal Eubanks Referrals: Arelis Field MD [Primary Care Provider] - Patient Instructions: Altered Mental Status (ED) Discharge Attestations Time Spent in Discharge Care*: greater than 30 min Quality Metrics Clinical Quality Measures [ No reported AMI, CVA or VTE this stay] Coding Level of Care Code Acute Code for Chg Fwd Diagnoses Anxiety F41.9 Altered mental status R41.82 Elevated lactic acid level R79.89
[2024-04-12 11:51] LABS: Glucose Point of Care 152 mg/dL (70-110)
[2024-04-12 12:07] VITALS: BP 132/52; PULSE 89; RESP 18; TEMP 36.5; O2SAT 98
[2024-04-12] MEDS: bacitracin ointment Pkt 1 EACH TOPICAL (13:04)
[2024-04-12] MEDS: insulin lispro 100 unit/1 mL SUBCUT (13:04)
== END 2024-04-12 13:17 | disposition skilled nursing facility (03) ==
LOC: ER 12:59 → MEDSURG 16:51
PROVIDERS: Admitting Provider Internal Medicine; Emergency Provider Family Medicine; PCP Family Medicine; Visit Provider Internal Medicine
DX: F41.9 Anxiety disorder, unspecified (principal); R41.82 Altered mental status, unspecified; R79.89 Other specified abnormal findings of blood chemistry; N40.0 Benign prostatic hyperplasia without lower urinary tract symptoms; E11.69 Type 2 diabetes mellitus with other specified complication; E66.9 Obesity, unspecified; Z68.35 Body mass index [BMI] 35.0-35.9, adult; E11.22 Type 2 diabetes mellitus with diabetic chronic kidney disease; N18.9 Chronic kidney disease, unspecified; Z87.891 Personal history of nicotine dependence; Z86.73 Personal history of transient ischemic attack (TIA), and cerebral infarction without residual deficits
CPT/HCPCS: 36415; 36416; 36600; 51702; 70450; 71045; 71275; 74174; 80048; 80051; 80053; 81003; 81015; 82140; 82330; 82550; 82607; 82805; 82962; 83036; 83605; 83735; 84100; 85025; 85378; 87040; 93005; 93970; 96361; 96365; 96372; 97110; 97116; 97162; 99285; G0378; J0696; J1815; J7030; Q9967

== ENCOUNTER 2024-04-21 16:12 | Inpatient (IN) | payer MEDICARE, OTHER, SELFPAY ==
[2024-04-21] VITALS (13 sets, daily range): BP systolic 131–172; BP diastolic 60–90; PULSE 76–112; RESP 14–24; TEMP 37.2–37.5; O2SAT 73–98
--- NOTE | 2024-04-21 16:39 | XRR_ITS ---
PROCEDURE INFORMATION: Exam: XR Chest Exam date and time: 04/21/2024 4:43 PM Age: 74 years old Clinical indication: Other: AMS; Additional info: Possible sepsis TECHNIQUE: Imaging protocol: Radiologic exam of the chest. Views: 1 view. COMPARISON: CT ang [facility]ah [id number] 04/11/2024 9:01 PM FINDINGS: Lungs: Unremarkable. No consolidation. Pleural spaces: Unremarkable. No pleural effusion. No pneumothorax. Heart/Mediastinum: Mild cardiomegaly. Bones/joints: Unremarkable. XR/XR chest 1V portable [id number] IMPRESSION: No acute cardiopulmonary process.
--- NOTE | 2024-04-21 16:45 | ECG_ITS ---
[facility] Test Date: 2024-04-21 Pat Name: Francisco Neal Department: Room: Gender: Male Bi Data Architect: : 1950 Requested By: Chapo Aldridge Order Number: [id number] Beckwith MD: Sage Rayo M.D. Measurements Intervals [place] Rate: 104 P: 14 TX: 181 QRS: 100 QRSD: 102 T: 53 QT: 325 QTc: 428 Interpretive Statements SINUS TACHYCARDIA INDETERMINATE AXIS LOW QRS VOLTAGE IN PRECORDIAL LEADS [QRS DEFLECTION < 1.0 mV IN CHEST LEADS] Compared to ECG 04/11/2024 11:03:01 Sinus rhythm no longer present ST (T wave) deviation no longer present Electronically Signed On 04-21-2024 20:10:18 CDT by Sage Rayo M.D. [id number]
--- NOTE | 2024-04-21 16:47 | ED_ITS ---
HPI - Altered Mental Status 2 General: Chief Complaint: Altered Mental Status Stated Complaint: AMS Time Seen by Provider: 04/21/24 16:27 History of Present Illness: 74-year-old male presents the emergency department for decline in strength, mentation, appetite. Patient has been in and out of the hospital this summer. He had a stroke on February 14 and was in the ICU and intubated for 6 day. Then after a prolonged stay secondary to seizures after the stroke, [facility], the patient has a temperature of 99.5 with an elevated heart rate and respiratory rate. Patient seems delirious. He is following basic commands but occasionally is altered. For example, nursing staff state that he was hallucinating about his brother being in the room. He cannot provide us with any meaningful history in regards to the source of his fever. Related Data Home Medications Medication Instructions Recorded Confirmed acetaminophen 500 mg tablet 1,000 mg PO Q6H PRN Pain 04/11/24 04/11/24 amlodipine 10 mg tablet 10 mg PO DAILY 04/11/24 04/11/24 aspirin 81 mg tablet,delayed 81 mg PO DAILY 04/11/24 04/11/24 release atorvastatin 40 mg tablet 40 mg PO DAILY 04/11/24 04/11/24 bisacodyl 10 mg rectal suppository 10 mg RI DAILY PRN Constipation 04/11/24 04/11/24 bisacodyl 5 mg tablet 10 mg PO BID PRN Constipation 04/11/24 04/11/24 clobazam 10 mg tablet 5 mg PO BID 04/11/24 04/11/24 gabapentin 100 mg capsule 100 mg PO TID 04/11/24 04/11/24 insulin aspart (niacinamide) See Rx Instructions .Route .COMPLEX 04/11/24 04/11/24 (U-100) 100 unit/mL subcutaneous solution (Fiasp U-100 Insulin) lacosamide 10 mg/mL oral solution 100 mg PO BID 04/11/24 04/11/24 (Vimpat) levetiracetam 100 mg/mL oral 7.5 mg PO BID 04/11/24 04/11/24 solution lidocaine 5 % topical patch See Rx Instructions .Route .COMPLEX 04/11/24 04/11/24 (Lidoderm) magnesium hydroxide 400 mg/5 mL 15 ml PO DAILY PRN Constipation 04/11/24 04/11/24 oral suspension (Milk of Magnesia) melatonin 5 mg tablet 5 mg PO BEDTIME 04/11/24 04/11/24 methocarbamol 500 mg tablet 500 mg PO TID PRN MUSCLE SPASMS 04/11/24 04/11/24 polyethylene glycol 3350 17 See Rx Instructions .Route 04/11/24 04/11/24 gram/dose oral powder (Miralax) .COMPLEX PRN Constipation quetiapine 25 mg tablet (Seroquel) See Rx Instructions .Route .COMPLEX 04/11/24 04/11/24 sodium phosphates 19 gram-7 118 ml RI DAILY PRN Constipation 04/11/24 04/11/24 gram/118 mL enema (Fleet Enema) tramadol 50 mg tablet 50 mg PO TID PRN Pain 04/11/24 04/11/24 Allergies Allergy/AdvReac Type Severity Reaction Status Date / Time acetaminophen Allergy ADR-Abdominal Verified 04/11/24 10:45 [From Tylenol-Codeine #3] Pain codeine Allergy ADR-Abdominal Verified 04/11/24 10:45 [From Tylenol-Codeine #3] Pain Review of Systems 2 General: Reports: ROS unobtainable due to mental status PFSH ED 2 PFSH: Medical History (Updated 04/13/24 @ 00:01 by LUIS Gates) 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, stroke with seizure Elevated lactic acid level Altered mental status History of asthma BPH (benign prostatic hyperplasia) Anxiety Gout Diabetes mellitus type 2 in obese Chronic kidney disease Osteoarthritis of knees, bilateral Surgical History History of cardiac catheterization History of nasal septoplasty History of excision of mass abdominal wall hematoma Family History Father CAD (coronary artery disease) Hypertension Lung disease Hyperlipidemia Mother Cancer Sister Diabetes Cancer Denies family history of Dementia Chronic kidney disease (CKD) Stroke Social History Smoking and tobacco/nicotine status: former use of tobacco/nicotine Quit status (tobacco/nicotine): has quit using Year quit tobacco: 2009 Alcohol intake: former Year of sobriety/quit date alcohol: 1999 Substance/Drug Use: never Marital status: Number of children: 3 service: No Physical Exam 2 Narrative: Morbidly obese. Tachycardic. Eyes remain closed most of the history. Troubles with concentration. Radial pulse 1+. Mouth dry. No meningeal signs. Pupils equal round reactive. Increased respiratory rate with wheezing. He does not participate very well with deep breathing when trying to auscultate posteriorly. Abdomen soft and nontender. No apparent bladder distention. No sacral coccygeal wounds. No wounds on the feet. Const: COMMON NORMALS: well nourished HENMT: COMMON NORMALS: normocephalic, atraumatic and external ears normal H EAD & SCALP: normocephalic and atraumatic EXTERNAL EAR: Yes external ears normal MOUTH: no muffled voice Eye: COMMON NORMALS: conjunctivae normal and no scleral icterus C ONJUNCTIVA: Yes conjunctivae normal Neck/C-Spine: GENERAL: Yes normal visual inspection and Yes trachea midline Resp: COMMON NORMALS: No use of accessory muscles Cardio: COMMON NORMALS: regular rhythm RHYTHM: regular rhythm GI: COMMON NORMALS: Soft to palpation and non-tender PALPATION: Yes Soft to palpation and No Guarding due to palpation present (GI) Neuro: COMMON NORMALS: moves all extremities, no focal motor deficits and no sensory deficits noted Skin: COMMON NORMALS: no rashes or lesions noted and no jaundice GENERAL SKIN EXAM: no rashes or lesions noted Course 2 ED course: EKG shows a suspected sinus tachycardia at a rate of 104. Chest x-ray EP interpretation. Appears to have an enlarged heart although this could be technique. No focal infiltrates effusions or pneumothorax appreciated. No pulmonary edema. White blood cell count normal. No other acute actionable laboratory findings. COVID antigen negative. Respiratory panel pending. UA neg. abd soft/nt Discussed case with hospitalist Dr. Lugo. I think it is advisable to admit him for his delirium and monitor him for any worsening. At this point since he is not hypotensive or toxic, I do not think we need to benedict empiric antibiotics. If he does continue to get worse and his blood cultures are negative and the respiratory panel is negative, then we could consider further imaging. Dr. Lugo in agreement with plan. Vital Signs: Vital signs: Vital Signs Temperature 99.5 F 04/21/24 16:15 Pulse Rate 104 H 04/21/24 17:30 Respiratory Rate 24 H 04/21/24 17:30 Blood Pressure 131/60 04/21/24 17:30 Pulse Oximetry 96 04/21/24 17:30 Oxygen Delivery Me thod Room Air 04/21/24 16:15 MDM - Altered Mental Status Medical Decision Making This is an ill-appearing 74-year-old male with multiple recent medical problems who has tachycardia, tachypnea, low-grade fever. The source of his presumed infection is unclear at this time. He has a intermediate resident so there is a possibility of communicable diseases. Will check urine, chest x-ray, blood cultures, lactic acid, respiratory panel with COVID. At this time his abdomen is soft and nondistended without any apparent tenderness. I do not find any wounds. Will continue to monitor closely and trend his vitals and lactic. Lab Data 04/21/24 16:57 04/21/24 16:57 Radiology Impressions Chest X-Ray 04/21/24 16:39 IMPRESSION: No acute cardiopulmonary process. Laboratory Results WBC 8.38 10^3/uL (3.29-11.43) 04/21/24 16:57 RBC 3.75 10^6/uL (3.85-5.65) L 04/21/24 16:57 Hgb 10.30 g/dL (11.27-16.99) L 04/21/24 16:57 Hct 33.7 % (37-53) L 04/21/24 16:57 MCV 89.9 fl (82-101) 04/21/24 16:57 MCH 27.5 pg (27-33) 04/21/24 16:57 MCHC 30.6 g/dL (30-55) 04/21/24 16:57 RDW 14.6 % (12.1-15.1) 04/21/24 16:57 Plt Count 311 10^3/cmm (157-399) 04/21/24 16:57 MPV 9.3 fL (7.4-10.4) 04/21/24 16:57 Neut % (Auto) 75.6 % 04/21/24 16:57 Lymph % (Auto) 14.4 % 04/21/24 16:57 Posey % (Auto) 7.9 % 04/21/24 16:57 Eos % (Auto) 0.2 % 04/21/24 16:57 Baso % (Auto) 0.7 % 04/21/24 16:57 Neut # (Auto) 6.33 10^3/uL (1.8-7.7) 04/21/24 16:57 Lymph # (Auto) 1.2 10^3/uL (0.8-4.8) 04/21/24 16:57 Posey # (Auto) 0.7 10^3/uL (0.2-0.9) 04/21/24 16:57 Eos # (Auto) 0.0 10^3/uL (0.0-0.8) 04/21/24 16:57 Baso # (Auto) 0.1 10^3/uL (0.0-0.1) 04/21/24 16:57 Nucleated RBC % (auto) 0 % 04/21/24 16:57 Nucleated RBCs # 0.0 /100WBC 04/21/24 16:57 Sodium 140 mmol/L (136-145) 04/21/24 16:57 Potassium 4.2 mmol/L (3.5-5.1) 04/21/24 16:57 Chloride 102 mmol/L (98-107) 04/21/24 16:57 Carbon Dioxide 27 mmol/L (22-29) 04/21/24 16:57 Anion Gap 15.2 (5-19) 04/21/24 16:57 BUN 13 mg/dL (8-23) 04/21/24 16:57 Creatinine 1.5 mg/dL (0.7-1.2) H 04/21/24 16:57 GFR Calculation Not Reportable 04/21/24 16:57 Glucose 174 mg/dL (65-115) H 04/21/24 16:57 Calculated Osmolality 294 mOsm/kg (285-295) 04/21/24 16:57 Lactic Acid 1.2 mmol/L (0.5-2.2) 04/21/24 16:57 Calcium 8.9 mg/dL (8.5-10.5) 04/21/24 16:57 Total Bilirubin 0.3 mg/dL (0.15-1.2) 04/21/24 16:57 AST 16 U/L (0-40) 04/21/24 16:57 ALT 11 U/L (0-41) 04/21/24 16:57 Alkaline Phosphatase 104 U/L (40-130) 04/21/24 16:57 Total Protein 7.1 g/dL (6.6-8.7) 04/21/24 16:57 Albumin 3.9 g/dL (3.5-5.2) 04/21/24 16:57 Globulin 3.2 g/dL (1.3-4.6) 04/21/24 16:57 Urine Color Yellow (Yellow) 04/21/24 17:30 Urine Appearance Clear (CLEAR) 04/21/24 17:30 Urine pH 8.0 (5-7) A 04/21/24 17:30 Ur Specific [place] 1.013 (1.005-1.030) 04/21/24 17:30 Urine Protein Negative (Negative) 04/21/24 17:30 Urine Glucose (UA) Negative (Normal) 04/21/24 17:30 Urine Ketones Negative (Negative) 04/21/24 17:30 Urine Blood Negative (Negative) 04/21/24 17:30 Urine Nitrate Negative (Negative) 04/21/24 17:30 Urine Bilirubin Negative (Negative) 04/21/24 17:30 Urine Urobilinogen 0.2 mg/dL (Negative) 04/21/24 17:30 Ur Leukocyte Esterase Negative (Negative) 04/21/24 17:30 Urine RBC 0-2 /hpf (0-2) 04/21/24 17:30 Urine WBC 0-5 /hpf (0-5) 04/21/24 17:30 Ur Squamous Epith Cells 0-5 /hpf (0-5) 04/21/24 17:30 Amorphous Sediment Not Reportable 04/21/24 17:30 Urine Bacteria None seen /hpf (NONE) 04/21/24 17:30 Hyaline Casts 0-4 /lpf H 04/21/24 17:30 SARS-CoV-2 Ag (Rapid) negative (Negative) 04/21/24 17:35 All radiology interpretation(s) finalized by discharge EKG Data EKG 1: Interpretation: Probable sinus tachycardia, rate 104, there is a tremor that makes some of the finer interpretation difficult, no definitive ST segment elevation or depression. Discharge Plan Discharge Condition: Stable Prescriptions: No Action Seroquel 25 mg Tablet See Rx Instructions .ROUTE .COMPLEX Rx Instructions: TAKE 1 TABLET BY MOUTH TWICE DAILY FOR RESTLESSNESS AND AGGITATION AND GIVE 3 TABLETS AT BEDTIME. atorvastatin 40 mg Tablet 40 mg PO DAILY methocarbamol 500 mg Tablet 500 mg PO TID PRN (Reason: MUSCLE SPASMS) aspirin 81 mg Tablet,Delayed Release (Dr/Ec) 81 mg PO DAILY tramadol 50 mg Tablet 50 mg PO TID PRN (Reason: Pain) acetaminophen 500 mg Tablet 1,000 mg PO Q6H PRN (Reason: Pain) Milk of Magnesia 400 mg/5 mL Suspension 15 ml PO DAILY PRN (Reason: Constipation) amlodipine 10 mg Tablet 10 mg PO DAILY bisacodyl 10 mg Suppository 10 mg RI DAILY PRN (Reason: Constipation) Lidoderm 5 % Adhesive Patch,Medicated See Rx Instructions .ROUTE .COMPLEX Rx Instructions: APPLY 1 PATCH TOPICALLY IN THE MORNING AND REMOVE AT BEDTIME. Fleet Enema 19-7 gram/118 mL Enema 118 ml RI DAILY PRN (Reason: Constipation) gabapentin 100 mg Capsule 100 mg PO TID Miralax 17 gram/dose Powder See Rx Instructions .ROUTE .COMPLEX PRN (Reason: Constipation) Rx Instructions: TAKE 17 g (1 CAPFUL) MIXED IN 4 TO 8 OUNCES LIQUID AND DRINK ENTIRE LIQUID DAILY NEEDED FOR CONSTIPATION. bisacodyl 5 mg Tablet 10 mg PO BID PRN (Reason: Constipation) levetiracetam 100 mg/mL Solution 7.5 mg PO BID melatonin 5 mg Tablet 5 mg PO BEDTIME Vimpat 10 mg/mL Solution 100 mg PO BID clobazam 10 mg Tablet 5 mg PO BID Fiasp U-100 Insulin 100 unit/mL Solution See Rx Instructions .ROUTE .COMPLEX Rx Instructions: INJECT 3 TIMES DAILY PER SLIDING SCALE: BS 181-200= 3UNITS, 201/250= 6UNITS, 251-300= 9UNITS, 301-350= 12UNITS, 351-400= 15UNITS, 401-600= 18UNITS. IF GREATER THAN 400, GIVE 18UNITS AND LET PROVIDER KNOW. Referrals: Arelis Field MD [Primary Care Provider] - Patient Instructions: Altered Mental Status (ED) Coding Level of Care Code ED Defense Travel Administrator for Lyudmila Hauser
[2024-04-21] MEDS: sodium chloride 0.9% 2,328 ML 2328 ML IV (17:10)
[2024-04-21] MEDS: ketorolac 30 mg/mL INJ 7.5 MG IVP (17:10)
[2024-04-21 17:11] LABS: Basophils # 0.1 10^3/uL (0.0-0.1); Basophils % 0.7 %; Eosinophils % 0.2 %; Hematocrit 33.7 % (37-53); Lymphocytes # 1.2 10^3/uL (0.8-4.8); Lymphocytes % 14.4 %; Mean Corpuscular HGB Conc 30.6 g/dL (30-55); Mean Corpuscular Hemoglobin 27.5 pg (27-33); Mean Corpuscular Volume 89.9 fl (82-101); Mean Platelet Volume 9.3 fL (7.4-10.4); Monocytes # 0.7 10^3/uL (0.2-0.9); Monocytes % 7.9 %; Neutrophils # 6.33 10^3/uL (1.8-7.7); Neutrophils % 75.6 %; Nucleated Red Blood Cells % 0 %; Platelet Count 311 10^3/cmm (157-399); Red Blood Count 3.75 10^6/uL (3.85-5.65); Red Cell Distribution Width 14.6 % (12.1-15.1); White Blood Count 8.38 10^3/uL (3.29-11.43)
[2024-04-21 17:27] LABS: Alanine Aminotransferase 11 U/L (0-41); Albumin Level 3.9 g/dL (3.5-5.2); Alkaline Phosphatase 104 U/L (40-130); Anion Gap 15.2 (5-19); Aspartate Amino Transferase 16 U/L (0-40); Blood Urea Nitrogen 13 mg/dL (8-23); Calcium 8.9 mg/dL (8.5-10.5); Carbon Dioxide 27 mmol/L (22-29); Chloride 102 mmol/L (98-107); Globulin 3.2 g/dL (1.3-4.6); Glucose 174 mg/dL (65-115); Osmolality Calculated 294 mOsm/kg (285-295); Potassium 4.2 mmol/L (3.5-5.1); Sodium 140 mmol/L (136-145); Total Bilirubin 0.3 mg/dL (0.15-1.2); Total Protein 7.1 g/dL (6.6-8.7)
[2024-04-21 17:30] LABS: Lactic Sepsis W/Reflex 1.2 mmol/L (0.5-2.2)
[2024-04-21 17:44] LABS: Charge for UA Resulting for Rev
[2024-04-21 17:49] LABS: Bilirubin Urine Negative (Negative); Blood Urine Negative (Negative); Glucose Urine UA Negative (Normal); Ketones Urine Negative (Negative); Leukocyte Esterase Urine Negative (Negative); Nitrate Urine Negative (Negative); Protein Urine Negative (Negative); Specific Gravity, Urine 1.013 (1.005-1.030); Urine Appearance Clear (CLEAR); Urine Color Yellow (Yellow); Urobilinogen Urine 0.2 mg/dL (Negative)
[2024-04-21 17:54] LABS: Bacteria Urine None Seen /hpf; Hyaline Casts Urine 0-4 /lpf; RBC Urine 0-2 /hpf (0-2); Squamous Epithelial Cell Urine 0-5 /hpf (0-5); WBC Urine 0-5 /hpf (0-5)
[2024-04-21 18:05] LABS: SARS Covid-2 Antigen negative (Negative)
--- NOTE | 2024-04-21 19:01 | CTR_ITS ---
PROCEDURE INFORMATION: Exam: CT Head Without Contrast Exam date and time: 04/21/2024 7:34 PM Age: 74 years old Clinical indication: Altered mental status/memory loss; Confusion or disorientation; Patient HX: Patient extremely confused. ; Additional info: AMS TECHNIQUE: Imaging protocol: Computed tomography of the head without contrast. Radiation optimization: All CT scans at this facility use at least one of these dose optimization techniques: automated exposure control; mA and/or kV adjustment per patient size (includes targeted exams where dose is matched to clinical indication); or iterative reconstruction. COMPARISON: CT head wo con* [id number] 04/11/2024 12:18 PM RADIATION DOSE METRICS: Total DLP (mGy-cm): 1589.08 FINDINGS: Limitations: Extensive motion artifact severely limits the examination. Brain: Age related brain involution is present. Diffuse subcortical and periventricular white matter hypodensities are most in favor with chronic small vessel disease. No large intracranial hemorrhage or significant mass effect. Cerebral ventricles: Compensatory exvacuo ventriculomegaly is present. Paranasal sinuses: Paranasal sinuses are clear. Mastoid air cells: The mastoid sinuses are clear. Bones: No significantly displaced fractures. Soft tissues: No acute soft tissue findings. CT/CT head wo con* [id number] IMPRESSION: Very limited exam due to extensive motion. No large intracranial hematomas or significant mass effect. Consider follow-up exam.
--- NOTE | 2024-04-21 19:04 | PM.HP ---
Providers/Chief Complaint Primary Care Provider: Arelis Field MD Chief Complaint: AMS History of Present Illness Francisco Neal is a 74 year old male with a past medical history of CVA, requiring prolonged hospitalization at outside hospital, was intubated for a prolonged period of time, history of seizures during that hospitalization, history of left arm amputation, who was recently admitted to [facility] for altered mental status, who presents to [facility] for concerns of altered mental status. Currently patient is alert to person, not to place, not to time, does not follow commands at times, his biggest concern is that he does not want his arm cut off, no family members at bedside, according to ER provider there was concerns for increased confusion, hallucination, and fevers. Currently he is afebrile he can follow some commands, he is able to move both his feet, he is able to squeeze my hands bilaterally with his hands, is able to smile for me, pupils are equal round reactive to light, but beyond this he does not follow any other commands, and I cannot get any meaningful history from him Review of Systems General: Reports: ROS unobtainable due to mental status Medications/Allergies Home Medications Medication Instructions Recorded Confirmed Last Taken Type acetaminophen 500 mg tablet 1,000 mg PO Q6H PRN Pain 04/11/24 04/11/24 Unknown History amlodipine 10 mg tablet 10 mg PO DAILY 04/11/24 04/11/24 04/10/24 History aspirin 81 mg tablet,delayed 81 mg PO DAILY 04/11/24 04/11/24 04/10/24 History release atorvastatin 40 mg tablet 40 mg PO DAILY 04/11/24 04/11/24 04/10/24 History bisacodyl 10 mg rectal suppository 10 mg SC DAILY PRN Constipation 04/11/24 04/11/24 Unknown History bisacodyl 5 mg tablet 10 mg PO BID PRN Constipation 04/11/24 04/11/24 Unknown History clobazam 10 mg tablet 5 mg PO BID 04/11/24 04/11/24 04/10/24 History gabapentin 100 mg capsule 100 mg PO TID 04/11/24 04/11/24 04/10/24 History insulin aspart (niacinamide) See Rx Instructions .Route .COMPLEX 04/11/24 04/11/24 04/10/24 History (U-100) 100 unit/mL subcutaneous solution (Fiasp U-100 Insulin) lacosamide 10 mg/mL oral solution 100 mg PO BID 04/11/24 04/11/24 04/10/24 History (Vimpat) levetiracetam 100 mg/mL oral 7.5 mg PO BID 04/11/24 04/11/24 04/10/24 History solution lidocaine 5 % topical patch See Rx Instructions .Route .COMPLEX 04/11/24 04/11/24 04/10/24 History (Lidoderm) magnesium hydroxide 400 mg/5 mL 15 ml PO DAILY PRN Constipation 04/11/24 04/11/24 Unknown History oral suspension (Milk of Magnesia) melatonin 5 mg tablet 5 mg PO BEDTIME 04/11/24 04/11/24 04/10/24 History methocarbamol 500 mg tablet 500 mg PO TID PRN MUSCLE SPASMS 04/11/24 04/11/24 Unknown History polyethylene glycol 3350 17 See Rx Instructions .Route 04/11/24 04/11/24 Unknown History gram/dose oral powder (Miralax) .COMPLEX PRN Constipation quetiapine 25 mg tablet (Seroquel) See Rx Instructions .Route .COMPLEX 04/11/24 04/11/24 04/10/24 History sodium phosphates 19 gram-7 118 ml SC DAILY PRN Constipation 04/11/24 04/11/24 Unknown History gram/118 mL enema (Fleet Enema) tramadol 50 mg tablet 50 mg PO TID PRN Pain 04/11/24 04/11/24 Unknown History Allergies Allergy/AdvReac Type Severity Reaction Status Date / Time acetaminophen Allergy ADR-Abdominal Verified 04/11/24 10:45 [From Tylenol-Codeine #3] Pain codeine Allergy ADR-Abdominal Verified 04/11/24 10:45 [From Tylenol-Codeine #3] Pain PFSH Acute PFSH: Medical History (Updated 04/21/24 @ 19:07 by Jony Lugo MD) Altered mental status 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, stroke with seizure Elevated lactic acid level History of asthma BPH (benign prostatic hyperplasia) Anxiety Gout Diabetes mellitus type 2 in obese Chronic kidney disease Osteoarthritis of knees, bilateral Surgical History History of cardiac catheterization History of nasal septoplasty History of excision of mass abdominal wall hematoma Family History Father CAD (coronary artery disease) Hypertension Lung disease Hyperlipidemia Mother Cancer Sister Diabetes Cancer Denies family history of Dementia Chronic kidney disease (CKD) Stroke Social History Smoking and tobacco/nicotine status: former use of tobacco/nicotine Quit status (tobacco/nicotine): has quit using Year quit tobacco: 2009 Alcohol intake: former Year of sobriety/quit date alcohol: 1999 Substance/Drug Use: never Marital status: Number of children: 3 service: No Vitals/I&O/Wt Last Vital Signs Temp 99.5 F 04/21/24 16:15 Pulse 95 04/21/24 18:30 Resp 23 H 04/21/24 18:30 BP 158/81 04/21/24 18:30 Pulse Ox 98 04/21/24 18:30 O2 Del Method Room Air 04/21/24 16:15 Physical Exam Const: COMMON NORMALS: no acute distress EXAM LIMITATIONS: altered mental status ORIENTATION/CONSCIOUSNESS: Yes awake, Yes oriented to person and Yes confused; not oriented to place and not oriented to time HENMT: COMMON NORMALS: normocephalic HEAD & SCALP: normocephalic Eye: COMMON NORMALS: Equal, round and reactive pupils present Neck/C-Spine: COMMON NORMALS: no JVD Resp: COMMON NORMALS: normal respiratory effort, No retractions, No use of accessory muscles and clear to auscultation bilaterally AUSCULTATION: clear to auscultation bilaterally Cardio: COMMON NORMALS: regular rate, regular rhythm, S1 normal heart sound present and S2 normal heart sound present RATE: regular rate RHYTHM: regular rhythm HEART SOUNDS: S1 normal heart sound present and S2 normal heart sound present GI: COMMON NORMALS: Normal to inspection, nondistended, normoactive bowel sounds present, Soft to palpation and non-tender Extremity: COMMON NORMALS: no pedal edema NARRATIVE EXTREMITY EXAM: Has calf tenderness Neuro: OTHER: Can follow commands such as squeezing my fingers, wiggling his toes able to smile for me but cannot follow any other neurologic testing Data 04/21/24 16:57 08/18/24 16:57 Micro: Microbiology 04/21/24 16:54 Blood Culture - Preliminary Blood SPECIMEN COLLECTED 04/21/24 16:57 Blood Culture - Preliminary Blood SPECIMEN COLLECTED A&P Assessment and plan (1) Altered mental status: (2) Diabetes mellitus type 2 in obese: (3) BPH (benign prostatic hyperplasia): Plan Altered mental status ? Etiology unclear ? Plan ? Follow UA ? Follow blood cultures ? Order CT of the head -MRI of the brain ? Order cardiac echo ? Order carotid artery ultrasound ? CRP, Pro-Morales, sed rate ? Neurochecks, NIH stroke scale, ? Aspiration precautions ? Speech therapy eval -PT/ot -continue home seizure medications -eeg -will consider lumbar puncture based on clinical progress -venous ultrasound -concern for fever, follow culture, kerning sign negative, brudunski sign negative -follow respiratory viral panel -low dose insulin sliding scale -nicole IV fluids -full code -lovenox for dvt prophylaxis Attestations Medical Necessity Statement*: Patient requires hospitalization, inpatient, greater than 2 midnights, for altered mental status Diagnoses Altered mental status R41.82 Diabetes mellitus type 2 in obese E11.69; E66.9 BPH (benign prostatic hyperplasia) N40.0
[2024-04-21 19:30] LABS: Erythrocyte Sedimentation Rate 9 mm/hr (0-10)
[2024-04-21 19:40] LABS: Adenovirus Not Detected (NOT DETECT); Chlamydia Pneumoniae Not Detected (NOT DETECT); Coronavirus 229E,HKU1,NL63,OC4 Not Detected (NOT DETECT); Human Metapneumovirus Not Detected (NOT DETECT); Human Rhinovirus/Enterovirus Not Detected (NOT DETECT); Influenza A Not Detected (NOT DETECT); Influenza A H1 Not Detected (NOT DETECT); Influenza A H1-2009 Not Detected (NOT DETECT); Influenza A H3 Not Detected (NOT DETECT); Influenza B Not Detected (NOT DETECT); Mycoplasma Pneumoniae Not Detected (NOT DETECT); Parainfluenza Virus Type 1 Not Detected (NOT DETECT); Parainfluenza Virus Type 2 Not Detected (NOT DETECT); Parainfluenza Virus Type 3 Not Detected (NOT DETECT); Parainfluenza Virus Type 4 Not Detected (NOT DETECT); Respiratory Syncytial Virus A Not Detected (NOT DETECT); Respiratory Syncytial Virus B Not Detected (NOT DETECT)
[2024-04-21 19:41] LABS: SARS-COV-2 Detected (NOT DETECT)
[2024-04-21 19:53] LABS: Troponin(5th) Baseline 49 ng/L (0-15)
[2024-04-21 20:01] LABS: NT Pro B Type Natriuretic Pept 588 pg/mL (0-125); Procalcitonin 0.23 ng/mL (0-0.5)
[2024-04-21 20:11] LABS: Amphetamines Screen Urine Negative (Negative); Barbiturates Screen Urine Negative (Negative); Benzodiazepines Screen Urine Positive (Negative); Cocaine Screen Urine Negative (Negative); Opiate Screen Urine Negative (Negative); PCP Screen Urine Negative (Negative); THC Screen Urine Negative (Negative)
[2024-04-21 20:11] LABS: C Reactive Protein 43.9 mg/L (0.0-4.9)
[2024-04-21 20:12] LABS: Acetaminophen < 5.0 ug/mL (10-30); Salicylate < 0.3 mg/dL (3-10)
--- NOTE | 2024-04-21 20:48 | ECG_ITS ---
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 Measurements Intervals [place] Rate: 93 P: 48 UT: 164 QRS: 68 QRSD: 98 T: 53 QT: 377 QTc: 470 Interpretive Statements SINUS RHYTHM LOW QRS VOLTAGE [QRS DEFLECTION < 0.5/1.0 mV IN LIMB/CHEST LEADS] Compared to ECG 04/21/2024 16:53:06 Sinus tachycardia no longer present Indeterminate axis no longer present Electronically Signed On 04-22-2024 12:04:33 CDT by Sage Rayo M.D. [id number]
[2024-04-21 21:13] LABS: Glucose Point of Care 131 mg/dL (70-110)
[2024-04-21 22:19] LABS: Estmated Average Glucose 123; Hemoglobin A1C 5.9 % (4.0-6.0)
[2024-04-21 22:29] LABS: Chol HDL Ratio 1.73 mg/dL (1.0-5.00); Cholesterol 88 mg/dL (0-200); HDL Cholesterol 51 mg/dL (60-100); LDL Cholesterol Calculated 25 mg/dL (50-129); LDL HDL Ratio 0.49 RATIO (0.00-3.22); Thyroid Stimulating Hormone 23.39 uIU/mL (0.27-4.20); Triglycerides 59 mg/dL (0-150)
[2024-04-21] MEDS: enoxaparin 40 mg/0.4 mL Syringe SUBCUT (22:50)
[2024-04-21] MEDS: pantoprazole 40 mg SDV IVP (22:51)
[2024-04-21] MEDS: sodium chloride 0.9% 1,000 ML 75 ML IV (22:51)
[2024-04-21] MEDS: gabapentin 100 mg Capsule PO (22:52)
[2024-04-22] VITALS (8 sets, daily range): BP systolic 125–167; BP diastolic 63–74; PULSE 88–106; RESP 16–28; TEMP 36.9–37.2; O2SAT 93–98
--- NOTE | 2024-04-22 00:58 | ECG_ITS ---
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 Measurements Intervals [place] Rate: 94 P: 58 AL: 184 QRS: 5 QRSD: 96 T: 29 QT: 368 QTc: 461 Interpretive Statements SINUS RHYTHM INDETERMINATE AXIS LOW QRS VOLTAGE [QRS DEFLECTION < 0.5/1.0 mV IN LIMB/CHEST LEADS] PATTERN CONSISTENT WITH PULMONARY DISEASE Compared to ECG 04/21/2024 20:48:21 Indeterminate axis now present Electronically Signed On 04-22-2024 12:08:43 CDT by Sage Rayo M.D. [id number]
[2024-04-22 01:20] LABS: Basophils # 0.1 10^3/uL (0.0-0.1); Basophils % 0.7 %; Eosinophils % 0.4 %; Hematocrit 34.3 % (37-53); Lymphocytes # 1.4 10^3/uL (0.8-4.8); Lymphocytes % 20.4 %; Mean Corpuscular HGB Conc 29.4 g/dL (30-55); Mean Corpuscular Hemoglobin 28.6 pg (27-33); Mean Corpuscular Volume 97.2 fl (82-101); Mean Platelet Volume 9.7 fL (7.4-10.4); Monocytes # 0.7 10^3/uL (0.2-0.9); Monocytes % 9.4 %; Neutrophils # 4.68 10^3/uL (1.8-7.7); Neutrophils % 67.9 %; Nucleated Red Blood Cells % 0 %; Platelet Count 198 10^3/cmm (157-399); Red Blood Count 3.53 10^6/uL (3.85-5.65); Red Cell Distribution Width 14.6 % (12.1-15.1)
[2024-04-22 01:41] LABS: Blood Urea Nitrogen 12 mg/dL (8-23); Carbon Dioxide 17 mmol/L (22-29); Chloride 106 mmol/L (98-107); Creatinine Clr Calc Pharmacy 70.6319; Glucose 112 mg/dL (65-115); Osmolality Calculated 287 mOsm/kg (285-295); Sodium 138 mmol/L (136-145)
[2024-04-22 01:42] LABS: Anion Gap 19.3 (5-19); Potassium 4.3 mmol/L (3.5-5.1)
[2024-04-22 06:29] LABS: Glucose Point of Care 121 mg/dL (70-110)
--- NOTE | 2024-04-22 07:22 | PC.NURSE ---
Spoke to Francisco Blanco's sister. She states that the patient has adamantly stated he does not wish to be placed on a ventilator if the need arose.
[2024-04-22] MEDS: perflutren protein-a microsphr 0.22 mg/mL SDV 3 mL IV (09:09)
[2024-04-22] MEDS: atorvastatin 40 mg Tablet PO (09:28)
[2024-04-22] MEDS: gabapentin 100 mg Capsule PO ×3 (09:28→20:56)
[2024-04-22] MEDS: amlodipine 10 mg Tablet PO (09:29)
[2024-04-22] MEDS: levETIRAcetam 1,000 mg/10 mL UDC 750 MG PO ×2 (09:29→17:58)
[2024-04-22] MEDS: aspirin 81 mg EC Tablet PO (09:29)
--- NOTE | 2024-04-22 09:29 | PC.PHAR ---
[facility]
[2024-04-22] MEDS: quetiapine 25 mg Tablet PO ×2 (10:03→14:05)
--- NOTE | 2024-04-22 13:20 | P.PN_ITS ---
Subjective 2 Subjective: - Patient was seen this morning, he is a lert to person, not to place, not to time, he can intermittently follow commands, but remains encephalopathic he understands that he is confused but he is not exactly sure why, he knows his name, he does not know his birthdate, he does not remember what he had for breakfast this morning, able to smile for me, able to move both his feet, move able to move his right hand, he had a left arm amputation, pupils equal round reactive to light, remains at times encephalopathic difficult for him to follow complex commands, cannot follow-up other neurologic testing -Patient was COVID positive, currently o n room air, afebrile overnight -Spoke to Dr. Gaytan about MRI results MR/MR head wo con* [id number] IMPRESSION: Some images degraded by motion. 1. 6 mm focus of acute ischemia involvi ng the splenium RIGHT corpus callosum. 2. Additional tiny amount of ischemia o r artifact in the adjacent subcortical U fibers. 3. Moderate small vessel changes with m oderate parenchymal volume loss. 4. 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 5. No hemosiderin on the susceptibility weighted images. Vitals/I&O/Wt Last Vital Signs Temp 98.9 F 04/22/24 08:00 Pulse 101 H 04/22/24 10:30 Resp 16 04/22/24 10:30 BP 142/63 04/22/24 08:00 Pulse Ox 97 04/22/24 10:30 O2 Del Method Room Air 04/22/24 10:30 FiO2 21 04/21/24 21:41 04/21/24 04/22/24 04/22/24 22:59 06:59 14:59 Intake Total 2328 / 2328 360 / 360 Output Total 1200 / 1200 900 / 900 Balance 2328 / 2328 -1200 / 1128 -540 / -540 Weight last 48 hrs Weight 118.887 kg Weight 114.759 kg Physical Exam 2 Const: COMMON NORMALS: no acute distress EXAM LIMITATIONS: altered mental status ORIENTATION/CONSCIOUSNESS: Yes awake, Yes oriented to person and Yes confused; not oriented to place and not oriented to time Eye: COMMON NORMALS: Equal, round and reactive pupils present PUPIL: Yes Equal, round and reactive pupils present Resp: COMMON NORMALS: normal respiratory effort, No retractions, No use of accessory muscles and clear to auscultation bilaterally AUSCULTATION: clear to auscultation bilaterally Cardio: COMMON NORMALS: regular rate, regular rhythm, S1 normal heart sound present and S2 normal heart sound present RATE: regular rate RHYTHM: r egular rhythm HEART SOUNDS: S1 normal heart sound present and S2 normal heart sound present GI: COMMON NORMALS: Normal to inspection, nondistended, normoactive bowel sounds present and non-tender Extremity: COMMON NORMALS: no pedal edema Neuro: SENSORIUM/ORIENTATION: Yes oriented to person, No oriented to place and No oriented to time Urinary Catheter Management: Sanchez: Cath Placed During This Visit: yes Reason for Continuing Indwelling Catheter: Other Urinary Catheter Date of Insertion: 04/21/24 Urinary Catheter Time of Insertion: 17:30 Data 04/22/24 00:59 04/22/24 00:59 Micro: Microbiology 04/21/24 16:54 Blood Culture - Preliminary Blood SPECIMEN COLLECTED 04/21/24 16:57 Blood Culture - Preliminary Blood SPECIMEN COLLECTED A&P Assessment and plan (1) Altered mental status: (2) Diabetes mellitus type 2 in obese: (3) BPH (benign prostatic hyperplasia): (4) Acute CVA (cerebrovascular accident): (5) COVID-19: (6) Status post left upper extremity amputation: Plan Altered mental status -Likely acute CVA involving the splenium right corpus callosum, with additional tiny amount of ischemia or artifact in the adjacent subcortical U fibers ? MRI findings as below MR/MR head wo con* [id number] IMPRESSION: Some images degraded by motion. 1. 6 mm focus of acute ischemia involving the splenium RIGHT corpus callosum. 2. Additional tiny amount of ischemia or artifact in the adjacent subcortical U fibers. 3. Moderate small vessel changes with moderate parenchymal volume loss. 4. 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 5. No hemosiderin on the susceptibility weighted images. -Patient is out of the window for tPA -Out of the window for mechanical thrombectomy ? He is already on aspirin, statin ? Also COVID-19 positive ? Plan ? Follow blood cultures ? Order cardiac echo ? Order carotid artery ultrasound ? Allow for permissive hypertension ? Continue aspirin, statin add on Plavix ? Neurochecks, NIH stroke scale, ? Aspiration precautions ? Speech therapy eval -PT/ot -continue home seizure medications -eeg -Continue telemetry monitoring -venous ultrasound -concern for fever, follow culture, kerning sign negative, brudunski sign negative -low dose insulin sliding scale -nicole IV fluids -History of pulmonary embolism? Looked at prior records patient CTA 02/14/2008/23/2024 small subsegmental pulmonary emboli in the left lower lobe, RV LV ratio 0.9, awaiting records from [facility] in [place] but was not placed on anticoagulation? CTA 04/11/2024 was negative for PE, venous ultrasound was negative for DVT will await records from [facility], will hold off on full dose anticoagulation for now -History of CVA in February 2024, for which she was intubated for a prolonged period of time, extubated, had seizures during that hospitalization, but details are unclear, awaiting records from [facility], further workup for recurrent CVA -Status post left upper extremity amputation, awaiting records from [facility] -COVID-19 positive, currently lung clear to auscultation bilaterally on room air, afebrile we will hold off on any treatment continue isolation continue supportive care # Elevated TSH, check T3, T4 -full code -lovenox for dvt prophylaxis Plan for today MRI, patient shows evidence of acute CVA spoke to Dr. Gaytan, add Plavix, continue neurochecks, allow for permissive hypertension cardiac echo carotid artery ultrasound, will continue inpatient monitoring for acute CVA, further testing Attestations 2 Medical Necessity Statement*: Patient requires hospitalization, for altered mental status, acute CVA, COVID-19 Diagnoses Altered mental status R41.82 Diabetes mellitus type 2 in obese E11.69; E66.9 BPH (benign prostatic hyperplasia) N40.0 Acute CVA (cerebrovascular accident) I63.9 COVID-19 U07.1 Status post left upper extremity amputation Z89.202
[2024-04-22 13:49] LABS: Free T4 Free Thyroxine 0.48 ng/dL (0.82-1.77)
[2024-04-22] MEDS: clopidogrel 75 mg Tablet PO (14:06)
[2024-04-22] MEDS: lacosamide 50 mg Tablet 100 MG PO (17:58)
[2024-04-22] MEDS: sodium chloride 0.9% 1,000 ML 75 ML IV (17:59)
--- NOTE | 2024-04-22 19:01 | USCV_ITS ---
Francisco Neal Age: 74 Gender: M : 1950 Exam Date: 04/22/2024 16:02 Ordering Phys: Jony Lugo MD Technologist: ERICA Exam Location: [facility] Indication: R/O DVT HISTORY: R/O DVT PROCEDURES: Venous duplex imaging was performed in bilateral lower extremities. The following venous structures were evaluated: common femoral vein, profunda vein, proximal portion of the greater saphenous vein, superficial femoral vein, and the popliteal vein. In addition, the posterior tibial and peroneal trunk were evaluated. Serial compression, augmentation maneuvers, and spectral Doppler flow evaluation were performed. FINDINGS: No evidence of DVT seen in any vessel visualized at this time. CONCLUSIONS No evidence of right lower extremity DVT. No evidence of left lower extremity DVT. Eamon Gaytan MD (Electronically Signed) Final Date: 22 April 2024 16:52 S
--- NOTE | 2024-04-22 19:01 | MR_ITS ---
WS: [id number] MRI HEAD WITHOUT CONTRAST TECHNIQUE: Sagittal T1, T2 axial, T2 axial FLAIR, axial and coronal T1 images, axial susceptibility w eighted imaging, axial diffusion weighted images, and coronal T2 images were obtained. CLINICAL INFORMATION: ams COMPARISON: CT 04/21/2024 FINDINGS: Some images degraded by patient motion. Focal area of restricted diffusion involving the RIGHT splenium of the corpus callosum adjacent to th e occipital horn measuring 6 mm compatible with acute ischemia. Adjacent smaller focus of faint parti ally restricted diffusion in the RIGHT temporoparietal subcortical U fibers either due to artifact or a tiny amount of ischemia. No other foci of restricted diffusion. Axial FLAIR and T2 imaging significantly degraded by motion ar tifact. Moderate small vessel changes with moderate parenchymal volume loss. Chronic infarcts in the cerebellum. Normal vascular flow voids at the skull base. No extra-axial fluid collections. Mild muco keeley thickening in the paranasal sinuses. Mastoid air cells are well aerated. No hemosiderin on the susceptibility weighted images. Moderate symmetric atrophy temporal lobes and h ippocampal formations. Normal optic chiasm and pituitary infundibulum. MR/MR head wo con* [id number] IMPRESSION: Some images degraded by motion. 1. 6 mm focus of acute ischemia involving the splenium RIGHT corpus callosum. 2. Additional tiny amount of ischemia or artifact in the adjacent subcortical U fibers. 3. Moderate small vessel changes with moderate parenchymal volume loss. 4. 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 5. No hemosiderin on the susceptibility weighted images. Notified Jony Lugo MD at 04/22/2024 11:49 AM.
--- NOTE | 2024-04-22 19:01 | USCV_ITS ---
Francisco Neal Age: 74 Gender: M : 1950 Exam Date: 04/22/2024 15:13 Ordering Phys: Jony Lugo MD Technologist: [place] [facility] [place]: ams BP: 140 / 67 HR: 161 Rhythm: Sinus Technical Quality: Adequate MEASUREMENTS (Male / Female) Normal Values 2D ECHO LV Diastolic Diameter PLAX 4.4 cm 4.2 - 5.9 / 3.9 - 5.3 cm IVS Diastolic Thickness 1.2 cm 0.6 - 1.0 / 0.6 - 0.9 cm IVS Systolic Thickness 1.2 cm LVPW Diastolic Thickness 1.1 cm 0.6 - 1.0 / 0.6 - 0.9 cm LVPW Systolic Thickness 1.5 cm LVOT Diameter 2.1 cm LV Ejection Fraction 2D Teich 49.8 % LV Ejection Fraction MOD 4C 62.2 % LV Ejection Fraction MOD 2C 56.0 % LV Ejection Fraction 2C AL 56.2 % LA Diameter 3.6 cm M-MODE LA Ao Ratio MM 1.1 AV Cusp Separation MM 2.2 cm DOPPLER AV Peak Velocity 127.0 cm/s LVOT Peak Velocity 113.0 cm/s AV Area Cont Eq vti 4.7 cm squared AV Area Cont Eq pk 3.0 cm squared MV Peak Velocity 115.0 cm/s MV Area PHT 7.6 cm squared TV Peak Velocity 148.5 cm/s TR Peak Velocity 164.0 cm/s TR Peak Gradient 10.8 mmHg TV Peak E Velocity 108.0 cm/s PV Peak Velocity 140.0 cm/s FINDINGS Left Ventricle Normal left ventricular size and systolic function, EF 62%.mild left ventricular hypertrophy. No regional wall motion abnormalities. Grade I/IV diastolic dysfunction (abnormal relaxation filling pattern), normal to mildly elevated filling pressures. Right Ventricle The right ventricle is normal in size and function. Right Atrium The right atrium is normal in size. Left Atrium The left atrium is normal in size. Mitral Valve Thickened mitral valve. Aortic Valve Trace aortic valve regurgitation. Tricuspid Valve No gross abnormalities noted Pulmonic Valve Pulmonic valve not well visualized. Pericardium Normal pericardium without effusion. Aorta Normal ascending aorta dimension. IVC Inferior vena cava not visualized. CONCLUSIONS Normal left ventricular size and systolic function, EF 62%.mild left ventricular hypertrophy. No regional wall motion abnormalities. Grade I/IV diastolic dysfunction (abnormal relaxation filling pattern), normal to mildly elevated filling pressures. Thickened mitral valve. Trace aortic valve regurgitation. There is no pericardial effusion. There are no intracardiac masses. Compared to the previous study from 08/15/2022, the LV ejection fraction has improved from 50% to 62% Dr Martha Power MD [facility] (Electronically Signed) Final Date: 22 April 2024 23:03 S
--- NOTE | 2024-04-22 19:01 | USCV_ITS ---
Francisco Neal Age: 74 Gender: M : 1950 Exam Date: 04/22/2024 16:15 Ordering Phys: Jony Lugo MD Technologist: ERICA Exam Location: [facility] [place] Indication: AMS Risk Factors: Previous Vascular Surgery: Right Brachial BP: / Left Brachial BP: / Right Left Velocity (cm/s) Spectral Plaque Velocity (cm/s) Spectral Plaque Syst/Diast Broadening Syst/Diast Broadening 106.40/19.40 Prox CCA 115.80/ 17.50 86.90/ 14.20 Mid CCA 179.80/ 40.90 92.10/ 14.20 Distal CCA 120.50/ 30.60 166.70/46.30 Prox ICA 75.90 / 20.10 81.70/ 16.50 Mid ICA 68.30 / 20.10 89.00/ 22.10 Distal ICA 70.90 / 15.00 68.70 ECA 147.10 1.80 ICA/CCA 0.60 Antegrade Vertebral Antegrade 44.60/ 14.90 cm/s 49.30/ 16.40 cm/s Tri Subclavian Tri 128.3 146.1 0 0 FINDINGS Technically difficult study CONCLUSIONS Right ICA stenosis 50-69%. Mild atheromatous plaque right carotid bulb/ICA. Left ICA stenosis <50%. Normal antegrade Doppler flow noted in the right vertebral artery. Normal antegrade Doppler flow noted in the left vertebral artery. Eamon Gaytan MD (Electronically Signed) Final Date: 22 April 2024 16:55 S
[2024-04-22] MEDS: quetiapine 25 mg Tablet 75 MG PO (20:56)
[2024-04-22] MEDS: pantoprazole 40 mg SDV IVP (20:56)
[2024-04-23] VITALS (7 sets, daily range): BP systolic 126–161; BP diastolic 62–84; PULSE 72–97; RESP 17–20; TEMP 36.9–37.4; O2SAT 95–98
[2024-04-23 05:37] LABS: Basophils % 0.4 %; Eosinophils % 0.2 %; Hematocrit 29.3 % (37-53); Lymphocytes # 1.2 10^3/uL (0.8-4.8); Lymphocytes % 22.7 %; Mean Corpuscular HGB Conc 30.7 g/dL (30-55); Mean Corpuscular Hemoglobin 27.4 pg (27-33); Mean Corpuscular Volume 89.1 fl (82-101); Mean Platelet Volume 9.1 fL (7.4-10.4); Monocytes # 0.8 10^3/uL (0.2-0.9); Monocytes % 14.8 %; Neutrophils # 3.23 10^3/uL (1.8-7.7); Neutrophils % 61.1 %; Nucleated Red Blood Cells % 0 %; Platelet Count 225 10^3/cmm (157-399); Red Blood Count 3.29 10^6/uL (3.85-5.65); Red Cell Distribution Width 14.4 % (12.1-15.1); White Blood Count 5.28 10^3/uL (3.29-11.43)
[2024-04-23 05:58] LABS: Anion Gap 15.7 (5-19); Blood Urea Nitrogen 13 mg/dL (8-23); Carbon Dioxide 23 mmol/L (22-29); Chloride 107 mmol/L (98-107); Creatinine Clr Calc Pharmacy 60.2446; Glucose 118 mg/dL (65-115); Osmolality Calculated 295 mOsm/kg (285-295); Potassium 3.7 mmol/L (3.5-5.1); Sodium 142 mmol/L (136-145)
[2024-04-23] MEDS: atorvastatin 40 mg Tablet PO (09:45)
[2024-04-23] MEDS: quetiapine 25 mg Tablet PO (09:45)
[2024-04-23] MEDS: lacosamide 50 mg Tablet 100 MG PO ×2 (09:46→18:26)
[2024-04-23] MEDS: nystatin powder 15 gm Btl 1 APPLIC TOPICAL ×2 (09:47→18:26)
[2024-04-23] MEDS: clopidogrel 75 mg Tablet PO (09:47)
[2024-04-23] MEDS: gabapentin 100 mg Capsule PO ×2 (09:47→20:20)
[2024-04-23] MEDS: aspirin 81 mg EC Tablet PO (09:47)
--- NOTE | 2024-04-23 11:09 | P.PN_ITS ---
Subjective 2 Subjective: Patient was seen this morning, he is alert to person, not to place, not to time, can follow commands moves both upper lower extremities, but remains confused at times, according to nursing staff he has refused to take his medications this morning Vitals/I&O/Wt Last Vital Signs Temp 98.8 F 04/23/24 08:00 Pulse 92 04/23/24 08:00 Resp 20 H 04/23/24 08:00 BP 161/84 04/23/24 08:00 Pulse Ox 98 04/23/24 08:00 O2 Del Method Room Air 04/23/24 08:00 FiO2 21 04/21/24 21:41 04/22/24 04/23/24 04/23/24 22:59 06:59 14:59 Intake Total 480 / 2080 500 / 2580 383.75 / 383.75 Output Total 1100 / 2500 600 / 3100 300 / 300 Balance -620 / -420 -100 / -520 83.75 / 83.75 Weight last 48 hrs Weight 113.625 kg Weight 118.887 kg Weight 114.759 kg Physical Exam 2 Const: COMMON NORMALS: no acute distress Resp: COMMON NORMALS: normal respiratory effort, No retractions, No use of accessory muscles and clear to auscultation bilaterally AUSCULTATION: clear to auscultation bilaterally Cardio: COMMON NORMALS: regular rate, regular rhythm, S1 normal heart sound present and S2 normal heart sound present RATE: regular rate RHYTHM: r egular rhythm HEART SOUNDS: S1 normal heart sound present and S2 normal heart sound present GI: COMMON NORMALS: Normal to inspection, nondistended, normoactive bowel sounds present and non-tender Extremity: COMMON NORMALS: no pedal edema Urinary Catheter Management: Sanchez: Cath Placed During This Visit: yes Reason for Continuing Indwelling Catheter: Other Urinary Catheter Date of Insertion: 04/21/24 Urinary Catheter Time of Insertion: 17:30 Data 04/23/24 05:27 04/23/24 05:27 Micro: Microbiology 04/21/24 16:54 Blood Culture - Preliminary Blood NEGATIVE TO DATE 04/21/24 16:57 Blood Culture - Preliminary Blood NEGATIVE TO DATE A&P Assessment and plan (1) Altered mental status: (2) Diabetes mellitus type 2 in obese: (3) BPH (benign prostatic hyperplasia): (4) Acute CVA (cerebrovascular accident): (5) COVID-19: (6) Status post left upper extremity amputation: Plan Altered mental status -Likely acute CVA involving the splenium right corpus callosum, with additional tiny amount of ischemia or artifact in the adjacent subcortical U fibers ? MRI findings as below MR/MR head wo con* [id number] IMPRESSION: Some images degraded by motion. 1. 6 mm focus of acute ischemia involving the splenium RIGHT corpus callosum. 2. Additional tiny amount of ischemia or artifact in the adjacent subcortical U fibers. 3. Moderate small vessel changes with moderate parenchymal volume loss. 4. 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 5. No hemosiderin on the susceptibility weighted images. -Patient is out of the window for tPA -Out of the window for mechanical thrombectomy ? He is already on aspirin, statin ? Also COVID-19 positive ? Plan ? Follow blood cultures, so far negative ? Order cardiac echo CONCLUSIONS Normal left ventricular size and systolic function, EF 62%.mild left ventricular hypertrophy. No regional wall motion abnormalities. Grade I/IV diastolic dysfunction (abnormal relaxation filling pattern), normal to mildly elevated filling pressures. Thickened mitral valve. Trace aortic valve regurgitation. There is no pericardial effusion. There are no intracardiac masses. Compared to the previous study from 08/15/2022, the LV ejection fraction has improved from 50% to 62% ? Order carotid artery ultrasound CONCLUSIONS Right ICA stenosis 50-69%. Mild atheromatous plaque right carotid bulb/ICA. Left ICA stenosis <50%. Normal antegrade Doppler flow noted in the right vertebral artery. Normal antegrade Doppler flow noted in the left vertebral artery. ? Allow for permissive hypertension ? Continue aspirin, statin add on Plavix ? Neurochecks, NIH stroke scale, ? Aspiration precautions ? Speech therapy eval -PT/ot -continue home seizure medications -eeg -Continue telemetry monitoring -venous ultrasound negative for dvt -concern for fever, follow culture, kerning sign negative, brudunski sign negative -low dose insulin sliding scale -nicole IV fluids -History of pulmonary embolism? Looked at prior records patient CTA 02/14/2008/23/2024 small subsegmental pulmonary emboli in the left lower lobe, RV LV ratio 0.9, awaiting records from [facility] in [place] but was not placed on anticoagulation? CTA 04/11/2024 was negative for PE, venous ultrasound was negative for DVT will await records from [facility], will hold off on full dose anticoagulation for now -History of CVA in February 2024, for which she was intubated for a prolonged period of time, extubated, had seizures during that hospitalization, but details are unclear, awaiting records from [facility] in [place], further workup for recurrent CVA -Status post left upper extremity amputation, awaiting records from [facility] -COVID-19 positive, currently lung clear to auscultation bilaterally on room air, afebrile we will hold off on any treatment continue isolation continue supportive care # Elevated TSH, check T3 within normal limits, T4 low, start levothyroxine 25 mcg daily -full code -lovenox for dvt prophylaxis Plan for today as patient has persistent encephalopathy, bruit of right carotid heard, will do CT head and neck continue clinical monitoring IV fluids, EEG Attestations 2 Medical Necessity Statement*: Patient requires hospitalization for acute CVA with persistent encephalopathy, requiring further workup Diagnoses Altered mental status R41.82 Diabetes mellitus type 2 in obese E11.69; E66.9 BPH (benign prostatic hyperplasia) N40.0 Acute CVA (cerebrovascular accident) I63.9 COVID-19 U07.1 Status post left upper extremity amputation Z89.202
--- NOTE | 2024-04-23 11:10 | CT_ITS ---
WS: [id number] CT ANGIOGRAM CEREBRAL AND CAROTID ARTERIES HISTORY: ams, cva, right carotid bruit TECHNIQUE: CT angiogram is performed of the carotid and cerebral arteries. During arterial injection imaging is obtained from the skull vertex to the aortic arch in 1.25 mm imaging. Coronal and sagittal reformats are submitted. Additional multi planar reformats of the carotid and cerebral arteries are submitted, MIP imaging also reviewed. NASCET criteria utilized. [facility] at least one of these dose optimization techniques: automated exposure control; mA and/or kV adjust ment per patient size (includes targeted exams where dose is matched to clinical indication); or iter ative reconstruction. CONTRAST: Omnipaque 350; 100 mL IV. DLP: 633.22 mGy.cm COMPARISON: None available. Carotid Angiogram: Right carotid: Common carotid artery: Proximal RIGHT common carotid artery is obscured by motion artifact. Internal carotid artery: Mild atherosclerotic plaque. Bifurcation is patent. External carotid artery: Patent. Left carotid: Common carotid artery: Arises normally from the aorta. No significant plaque or stenosis. Internal carotid artery: No plaque or stenosis. External carotid artery: Patent. Right vertebral artery: Unremarkable. Left vertebral artery: Unremarkable. Arises normally from the subclavian artery. Subclavian arteries: Portions of the RIGHT subclavian obscured by injection contrast opacification of the vein. LEFT subclavian artery is normal. Upper thorax: Normal. Thyroid gland: Normal. Osseous structures: Unremarkable. CEREBRAL ANGIOGRAM: Intracranial vertebral arteries: Normal with no significant atherosclerosis. Basilar artery: No significant stenosis or occlusion. No aneurysm. Intracranial Internal carotid arteries: Moderate calcified plaque intracranial carotid arteries throu gh the cavernous sinuses. Middle cerebral arteries: Normal. Anterior cerebral arteries and ACOM: Normal. Posterior cerebral arteries and PCOM's: Normal. Dural venous sinuses are normally enhancing. Mastoid air cells: Normal. Paranasal sinuses: Moderate mucoperiosteal thickening throughout the paranasal sinuses. No air-fluid levels. Calvarium: Normal. CT/CT angio headneck* [id number] IMPRESSION: 1. No cervical carotid artery stenosis. 2. No aneurysm in the [place]. 3. Moderate plaque in the intracranial carotid arteries to the cavernous sinus es.
[2024-04-23] MEDS: iohexol 350 mg/mL 500 mL Btl (per mL) IV (11:59)
[2024-04-23] MEDS: acetaminophen 325 mg Tablet 650 MG PO (12:13)
[2024-04-23] MEDS: sodium chloride 0.9% 1,000 ML 50 ML IV (12:13)
[2024-04-23] MEDS: levETIRAcetam 1,000 mg/10 mL UDC 750 MG PO ×2 (12:20→18:18)
[2024-04-23 15:34] LABS: Lyme AB Screen <0.90 index
[2024-04-23 18:23] LABS: Glucose Point of Care 135 mg/dL (70-110)
[2024-04-23] MEDS: quetiapine 25 mg Tablet 75 MG PO (20:20)
[2024-04-23 20:24] LABS: Glucose Point of Care 127 mg/dL (70-110)
[2024-04-23] MEDS: pantoprazole 40 mg SDV IVP (21:17)
[2024-04-24] VITALS (8 sets, daily range): BP systolic 121–148; BP diastolic 60–75; PULSE 78–89; RESP 17–18; TEMP 36.6–37.4; O2SAT 95–98
[2024-04-24] MEDS: levothyroxine 25 mcg Tablet PO (05:47)
[2024-04-24] MEDS: acetaminophen 325 mg Tablet 650 MG PO (06:03)
[2024-04-24 06:12] LABS: Basophils % 0.6 %; Eosinophils # 0.2 10^3/uL (0.0-0.8); Eosinophils % 2.8 %; Hematocrit 31.3 % (37-53); Lymphocytes # 1.3 10^3/uL (0.8-4.8); Lymphocytes % 24.4 %; Mean Corpuscular HGB Conc 30.4 g/dL (30-55); Mean Corpuscular Hemoglobin 27.3 pg (27-33); Mean Corpuscular Volume 89.9 fl (82-101); Mean Platelet Volume 9.4 fL (7.4-10.4); Monocytes # 0.5 10^3/uL (0.2-0.9); Monocytes % 8.3 %; Neutrophils # 3.45 10^3/uL (1.8-7.7); Neutrophils % 63.3 %; Nucleated Red Blood Cells % 0 %; Platelet Count 236 10^3/cmm (157-399); Red Blood Count 3.48 10^6/uL (3.85-5.65); Red Cell Distribution Width 14.6 % (12.1-15.1); White Blood Count 5.44 10^3/uL (3.29-11.43)
[2024-04-24 06:21] LABS: Glucose Point of Care 114 mg/dL (70-110)
[2024-04-24 06:30] LABS: Anion Gap 15.9 (5-19); Blood Urea Nitrogen 15 mg/dL (8-23); Calcium 7.8 mg/dL (8.5-10.5); Carbon Dioxide 21 mmol/L (22-29); Chloride 110 mmol/L (98-107); Creatinine Clr Calc Pharmacy 71.4218; Glucose 127 mg/dL (65-115); Osmolality Calculated 298 mOsm/kg (285-295); Potassium 3.9 mmol/L (3.5-5.1); Sodium 143 mmol/L (136-145)
[2024-04-24] MEDS: lacosamide 50 mg Tablet 100 MG PO (09:43)
[2024-04-24] MEDS: clopidogrel 75 mg Tablet PO (09:43)
[2024-04-24] MEDS: atorvastatin 40 mg Tablet PO (09:43)
[2024-04-24] MEDS: nystatin powder 15 gm Btl 1 APPLIC TOPICAL (09:44)
[2024-04-24] MEDS: levETIRAcetam 1,000 mg/10 mL UDC 750 MG PO (09:44)
[2024-04-24] MEDS: quetiapine 25 mg Tablet PO ×2 (09:44→16:31)
[2024-04-24] MEDS: aspirin 81 mg EC Tablet PO (09:44)
[2024-04-24] MEDS: gabapentin 100 mg Capsule PO ×2 (09:44→16:30)
--- NOTE | 2024-04-24 11:39 | PM.DCS ---
Discharge Providers Date of Admission: 04/21/24 20:55 Date of Discharge: April 24, 2024 Attending Provider at Admission: Jony Lugo MD Attending Provider at Discharge: Jony Lugo MD Primary Care Provider: Arelis Field MD Diagnoses at Discharge Discharge Diagnosis (1) Altered mental status: Status: Acute (2) Diabetes mellitus type 2 in obese: Status: Chronic (3) BPH (benign prostatic hyperplasia): Status: Chronic (4) Acute CVA (cerebrovascular accident): Status: Acute (5) COVID-19: Status: Acute (6) Status post left upper extremity amputation: Status: Acute Reason for Visit Reason for Visit: AMS Hospital Course Hospital Course Francisco Neal is a 74 year old male with a past medical history of CVA, requiring prolonged hospitalization at outside hospital, was intubated for a prolonged period of time, history of seizures during that hospitalization, history of left arm amputation, who was recently admitted to [facility] for altered mental status, who presents to [facility] for concerns of altered mental status. Currently patient is alert to person, not to place, not to time, does not follow commands at times, his biggest concern is that he does not want his arm cut off, no family members at bedside, according to ER provider there was concerns for increased confusion, hallucination, and fevers. Currently he is afebrile he can follow some commands, he is able to move both his feet, he is able to squeeze my hands bilaterally with his hands, is able to smile for me, pupils are equal round reactive to light, but beyond this he does not follow any other commands, and I cannot get any meaningful history from him Patient was admitted to [facility] for altered mental status, likely related to acute CVA involving the splenium right corpus callosum with additional tiny amount ischemia or artifact in the adjacent subcortical U fibers -MRI findings as below MR/MR head wo con* [id number] IMPRESSION: Some images degraded by motion. 1. 6 mm focus of acute ischemia involving the splenium RIGHT corpus callosum. 2. Additional tiny amount of ischemia or artifact in the adjacent subcortical U fibers. 3. Moderate small vessel changes with moderate parenchymal volume loss. 4. 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 5. No hemosiderin on the susceptibility weighted images. CTA head and neck CT/CT angio headneck* [id number] IMPRESSION: 1. No cervical carotid artery stenosis. 2. No aneurysm in the [place]. 3. Moderate plaque in the intracranial carotid arteries to the cavernous sinuses. -Patient is out of the window for tPA -Out of the window for mechanical thrombectomy ? He is already on aspirin, statin ? Also COVID-19 positive -Is medically managed on aspirin, statin, Plavix, allow for permissive hypertension ? For his COVID-19 he did not require any treatment as he remained afebrile, regular remained on room air, ? Patient did have fluctuating mentation, but on day of discharge he was alert to person, to place not to time he follows all commands no focal weakness we discussed his recurrent stroke we will discharge him on aspirin, statin, in addition I have added on Plavix, for 18 remaining days, then should be discontinued ? He should follow-up with neurology as outpatient ? As this is patient's second stroke I have him following up with neurology, should be considered event monitoring as outpatient -History of pulmonary embolism, Looked at prior records patient CTA 02/14/2008/23/2024 small subsegmental pulmonary emboli in the left lower lobe, RV LV ratio 0.9, records from [facility] reviewed but was not placed on anticoagulation, Looked at the records they did not address this during that hospitalization Nor was he discharged on anticoagulant, nonetheless CTA 04/11/2024 was negative for pulmonary embolism, venous ultrasound was negative for DVT, venous ultrasound during this hospitalization was negative, had a detailed discussion with the patient, shared decision making, he voiced understanding, all question answered, will hold off on anticoagulant therapy for now -Hypothyroidism discharged on levothyroxine -There is the possibility that patient's episodes altered mental status could be breakthrough seizures, he is on multiple seizure medications, will have a follow-up with neurology as outpatient -On discharge patient is alert to person, to place, not to time he follows commands, has intermittent episodes in which you have to repeat questions to him, but mentation has significantly improved, discharged to longterm facility Physical Exam Const: COMMON NORMALS: no acute distress ORIENTATION/CONSCIOUSNESS: Yes awake, Yes oriented to person and Yes oriented to place; not oriented to time Resp: COMMON NORMALS: normal respiratory effort, No retractions, No use of accessory muscles and clear to auscultation bilaterally AUSCULTATION: clear to auscultation bilaterally Cardio: COMMON NORMALS: regular rate, regular rhythm, S1 normal heart sound present and S2 normal heart sound present RATE: regular rate RHYTHM: regular rhythm HEART SOUNDS: S1 normal heart sound present and S2 normal heart sound present GI: COMMON NORMALS: Normal to inspection, nondistended, normoactive bowel sounds present and non-tender Extremity: COMMON NORMALS: no pedal edema Neuro: COMMON NORMALS: CN's II-XII intact bilaterally, moves all extremities and no focal motor deficits SENSORIUM/ORIENTATION: Yes oriented to person, Yes oriented to place and No oriented to time Psych: COMMON NORMALS: mental status grossly normal Urinary Catheter Management: Sanchez: Cath Placed During This Visit: yes Reason for Continuing Indwelling Catheter: Other Urinary Catheter Date of Insertion: 04/21/24 Urinary Catheter Time of Insertion: 17:30 Discharge Data Studies Completed and Pending Completed Studies During Hospitalization Category Date Time Status CT head wo con* [id number] Stat Cat Scan 04/21/24 19:01 Completed CTA head neck [CT angio headneck* [id number]] Routine Cat Scan 04/23/24 11:10 Completed XR chest 1V portable [id number] Stat Exams 04/21/24 16:39 Completed MR head wo con* [id number] Stat MRI 04/22/24 19:01 Completed CV carotid duplex BI* [id number] Stat Ultrasound 04/22/24 19:01 [place] [id number] Stat Ultrasound 04/22/24 19:01 Completed CV. echo complete* [id number] Stat Ultrasound 04/22/24 19:01 Completed Pending at discharge Category Date Time Status EEG electroencephalogram Stat Exams 04/21/24 19:01 Ordered Blood Culture Stat Lab 04/21/24 16:54 Results Lymes Ab IgG/IgM ref WB [Lymes Western Blot] Stat Lab 04/21/24 19:25 Received Tick Panel Stat Lab 04/21/24 19:25 Results Radiology Impressions Chest X-Ray 04/21/24 16:39 IMPRESSION: No acute cardiopulmonary process. Head CT 04/21/24 19:01 IMPRESSION: Very limited exam due to extensive motion. No large intracranial hematomas or significant mass effect. Consider follow-up exam. Head MRI 04/22/24 19:01 IMPRESSION: Some images degraded by motion. 1. 6 mm focus of acute ischemia involving the splenium RIGHT corpus callosum. 2. Additional tiny amount of ischemia or artifact in the adjacent subcortical U fibers. 3. Moderate small vessel changes with moderate parenchymal volume loss. 4. 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 5. No hemosiderin on the susceptibility weighted images. Notified Jony Lugo MD at 04/22/2024 11:49 AM. Head/Neck CTA 04/23/24 11:10 IMPRESSION: 1. No cervical carotid artery stenosis. 2. No aneurysm in the [place]. 3. Moderate plaque in the intracranial carotid arteries to the cavernous sinuses. Laboratory Results WBC 5.44 10^3/uL (3.29-11.43) 04/24/24 05:56 RBC 3.48 10^6/uL (3.85-5.65) L 04/24/24 05:56 Hgb 9.50 g/dL (11.27-16.99) L 04/24/24 05:56 Hct 31.3 % (37-53) L 04/24/24 05:56 MCV 89.9 fl (82-101) 04/24/24 05:56 MCH 27.3 pg (27-33) 04/24/24 05:56 MCHC 30.4 g/dL (30-55) 04/24/24 05:56 RDW 14.6 % (12.1-15.1) 04/24/24 05:56 Plt Count 236 10^3/cmm (157-399) 04/24/24 05:56 MPV 9.4 fL (7.4-10.4) 04/24/24 05:56 Neut % (Auto) 63.3 % 04/24/24 05:56 Lymph % (Auto) 24.4 % 04/24/24 05:56 [place] % (Auto) 8.3 % 04/24/24 05:56 Eos % (Auto) 2.8 % 04/24/24 05:56 Baso % (Auto) 0.6 % 04/24/24 05:56 Neut # (Auto) 3.45 10^3/uL (1.8-7.7) 04/24/24 05:56 Lymph # (Auto) 1.3 10^3/uL (0.8-4.8) 04/24/24 05:56 [place] # (Auto) 0.5 10^3/uL (0.2-0.9) 04/24/24 05:56 Eos # (Auto) 0.2 10^3/uL (0.0-0.8) 04/24/24 05:56 Baso # (Auto) 0.0 10^3/uL (0.0-0.1) 04/24/24 05:56 Nucleated RBC % (auto) 0 % 04/24/24 05:56 Nucleated RBCs # 0.0 /100WBC 04/24/24 05:56 ESR 9 mm/hr (0-10) 04/21/24 19:25 Sodium 143 mmol/L (136-145) 04/24/24 05:56 Potassium 3.9 mmol/L (3.5-5.1) 04/24/24 05:56 Chloride 110 mmol/L (98-107) H 04/24/24 05:56 Carbon Dioxide 21 mmol/L (22-29) L 04/24/24 05:56 Anion Gap 15.9 (5-19) 04/24/24 05:56 BUN 15 mg/dL (8-23) 04/24/24 05:56 Creatinine 1.2 mg/dL (0.7-1.2) 04/24/24 05:56 GFR Calculation Not Reportable 04/24/24 05:56 Glucose 127 mg/dL (65-115) H 04/24/24 05:56 POC Glucose 114 mg/dL (70-110) H 04/24/24 06:06 Estimat Average Glucose 123 04/21/24 21:43 Hemoglobin A1c 5.9 % (4.0-6.0) 04/21/24 21:43 Calculated Osmolality 298 mOsm/kg (285-295) H 04/24/24 05:56 Lactic Acid 1.2 mmol/L (0.5-2.2) 04/21/24 16:57 Calcium 7.8 mg/dL (8.5-10.5) L 04/24/24 05:56 Total Bilirubin 0.3 mg/dL (0.15-1.2) 04/21/24 16:57 AST 16 U/L (0-40) 04/21/24 16:57 ALT 11 U/L (0-41) 04/21/24 16:57 Alkaline Phosphatase 104 U/L (40-130) 04/21/24 16:57 Troponin T Baseline 49 ng/L (0-15) H 04/21/24 19:25 Troponin T 120 Minute 55.10 ng/L (0-15) H 04/21/24 21:43 Delta Troponin T 6.10 ABS# (0-10) 04/21/24 21:43 Troponin T Hi Sens 6Hr 50.80 ng/L (0-15) H 04/22/24 00:59 Troponin T Hi Sens 6Hr Delta 1.80 ng/L (0-12) 04/22/24 00:59 C-Reactive Protein 43.9 mg/L (0.0-4.9) H 04/21/24 19:25 NT-Pro-B Natriuret Pep 588 pg/mL (0-125) H 04/21/24 19:25 Total Protein 7.1 g/dL (6.6-8.7) 04/21/24 16:57 Albumin 3.9 g/dL (3.5-5.2) 04/21/24 16:57 Globulin 3.2 g/dL (1.3-4.6) 04/21/24 16:57 Triglycerides 59 mg/dL (0-150) 04/21/24 21:43 Cholesterol 88 mg/dL (0-200) 04/21/24 21:43 LDL Cholesterol, Calc 25 mg/dL (50-129) L 04/21/24 21:43 HDL Cholesterol 51 mg/dL (60-100) L 04/21/24 21:43 LDL/HDL Ratio 0.49 RATIO (0.00-3.22) 04/21/24 21:43 Cholesterol/HDL Ratio 1.73 mg/dL (1.0-5.00) 04/21/24 21:43 Procalcitonin 0.23 ng/mL (0-0.5) 04/21/24 19:25 TSH 23.39 uIU/mL (0.27-4.20) H 04/21/24 21:43 Free T4 0.48 ng/dL (0.82-1.77) L 04/22/24 00:59 Free T3 2.0 PG/ML (2.0-4.4) 04/22/24 00:59 Urine Color Yellow (Yellow) 04/21/24 17:30 Urine Appearance Clear (CLEAR) 04/21/24 17:30 Urine pH 8.0 (5-7) A 04/21/24 17:30 Ur Specific [place] 1.013 (1.005-1.030) 04/21/24 17:30 Urine Protein Negative (Negative) 04/21/24 17:30 Urine Glucose (UA) Negative (Normal) 04/21/24 17:30 Urine Ketones Negative (Negative) 04/21/24 17:30 Urine Blood Negative (Negative) 04/21/24 17:30 Urine Nitrate Negative (Negative) 04/21/24 17:30 Urine Bilirubin Negative (Negative) 04/21/24 17:30 Urine Urobilinogen 0.2 mg/dL (Negative) 04/21/24 17:30 Ur Leukocyte Esterase Negative (Negative) 04/21/24 17:30 Urine RBC 0-2 /hpf (0-2) 04/21/24 17:30 Urine WBC 0-5 /hpf (0-5) 04/21/24 17:30 Ur Squamous Epith Cells 0-5 /hpf (0-5) 04/21/24 17:30 Amorphous Sediment Not Reportable 04/21/24 17:30 Urine Bacteria None seen /hpf (NONE) 04/21/24 17:30 Hyaline Casts 0-4 /lpf H 04/21/24 17:30 Salicylates < 0.3 mg/dL (3-10) L 04/21/24 19:25 Urine Opiates Screen Negative ng/mL (Negative) 04/21/24 17:30 Acetaminophen < 5.0 ug/mL (10-30) L 04/21/24 19:25 Ur Barbiturates Screen Negative ng/mL (Negative) 04/21/24 17:30 Ur Phencyclidine Scrn Negative ng/mL (Negative) 04/21/24 17:30 Ur Amphetamines Screen Negative ng/mL (Negative) 04/21/24 17:30 U Benzodiazepines Scrn Positive ng/mL (Negative) H 04/21/24 17:30 Urine Cocaine Screen Negative ng/mL (Negative) 04/21/24 17:30 U Marijuana (THC) Screen Negative ng/mL (Negative) 04/21/24 17:30 Adenovirus (PCR) Not detected (NOT DETECT) 04/21/24 17:38 Lyme Ab (Western Blot) <0.90 index 04/21/24 19:25 C. pneumoniae DNA (PCR) Not detected (NOT DETECT) 04/21/24 17:38 Coronavirus 229E (PCR) Not detected (NOT DETECT) 04/21/24 17:38 Human Metapneumovir PCR Not detected (NOT DETECT) 04/21/24 17:38 Influenza A (H1) PCR Not detected (NOT DETECT) 04/21/24 17:38 Influ A (H1/09) PCR Not detected (NOT DETECT) 04/21/24 17:38 Influenza A (H3) PCR Not detected (NOT DETECT) 04/21/24 17:38 Influenza Type A (PCR) Not detected (NOT DETECT) 04/21/24 17:38 Influenza Type B (PCR) Not detected (NOT DETECT) 04/21/24 17:38 M. pneumoniae (PCR) Not detected (NOT DETECT) 04/21/24 17:38 Parainfluenza 1 (PCR) Not detected (NOT DETECT) 04/21/24 17:38 Parainfluenza 2 (PCR) Not detected (NOT DETECT) 04/21/24 17:38 Parainfluenza 3 (PCR) Not detected (NOT DETECT) 04/21/24 17:38 Parainfluenza 4 (PCR) Not detected (NOT DETECT) 04/21/24 17:38 RSV Type A (PCR) Not detected (NOT DETECT) 04/21/24 17:38 RSV Type B (PCR) Not detected (NOT DETECT) 04/21/24 17:38 Entero/Rhino (PCR) Not detected (NOT DETECT) 04/21/24 17:38 SARS-CoV-2 (PCR) Detected (NOT DETECT) A 04/21/24 17:38 SARS-CoV-2 Ag (Rapid) negative (Negative) 04/21/24 17:35 Vitals Last Vital Signs Temp 97.8 F 04/24/24 08:06 Pulse 86 04/24/24 08:06 Resp 17 04/24/24 08:06 BP 121/60 04/24/24 08:06 Pulse Ox 95 04/24/24 08:06 O2 Del Method Room Air 04/24/24 08:06 FiO2 21 04/21/24 21:41 Discharge Plan Discharge Patient Disposition: Home Condition: Stable Prescriptions: New clopidogrel 75 mg Tablet 75 mg PO DAILY 18 Days Qty: 18 0RF Nystop 100,000 unit/gram Powder 1 applic topical BID 30 Days Qty: 60 0RF levothyroxine 25 mcg Tablet 25 mcg PO QAM 30 Days Qty: 30 0RF Continued quetiapine [Seroquel] 25 mg Tablet See Rx Instructions .ROUTE .COMPLEX Rx Instructions: TAKE 1 TABLET BY MOUTH TWICE DAILY FOR RESTLESSNESS AND AGGITATION AND GIVE 3 TABLETS AT BEDTIME. atorvastatin 40 mg Tablet 40 mg PO DAILY methocarbamol 500 mg Tablet 500 mg PO TID PRN (Reason: MUSCLE SPASMS) aspirin 81 mg Tablet,Delayed Release (Dr/Ec) 81 mg PO DAILY tramadol 50 mg Tablet 50 mg PO TID PRN (Reason: Pain) acetaminophen 500 mg Tablet 1,000 mg PO Q6H PRN (Reason: Pain) magnesium hydroxide [Milk of Magnesia] 400 mg/5 mL Suspension 30 ml PO DAILY PRN (Reason: Constipation) amlodipine 10 mg Tablet 10 mg PO DAILY bisacodyl 10 mg Suppository 10 mg AL DAILY PRN (Reason: Constipation) lidocaine [Lidoderm] 5 % Adhesive Patch,Medicated See Rx Instructions .ROUTE .COMPLEX Rx Instructions: APPLY 1 PATCH TOPICALLY IN THE MORNING AND REMOVE AT BEDTIME. Fleet Enema 19-7 gram/118 mL Enema 118 ml AL DAILY PRN (Reason: Constipation) gabapentin 100 mg Capsule 100 mg PO TID polyethylene glycol 3350 [Miralax] 17 gram/dose Powder See Rx Instructions .ROUTE .COMPLEX PRN (Reason: Constipation) Rx Instructions: TAKE 17 g (1 CAPFUL) MIXED IN 4 TO 8 OUNCES LIQUID AND DRINK ENTIRE LIQUID DAILY NEEDED FOR CONSTIPATION. bisacodyl 5 mg Tablet 10 mg PO BID PRN (Reason: Constipation) levetiracetam 100 mg/mL Solution 7.5 mg PO BID melatonin 5 mg Tablet 5 mg PO BEDTIME lacosamide [Vimpat] 10 mg/mL Solution 100 mg PO BID clobazam 10 mg Tablet 5 mg PO BID Fiasp U-100 Insulin 100 unit/mL Solution See Rx Instructions .ROUTE .COMPLEX Rx Instructions: INJECT 3 TIMES DAILY PER SLIDING SCALE: BS 181-200= 3UNITS, 201/250= 6UNITS, 251-300= 9UNITS, 301-350= 12UNITS, 351-400= 15UNITS, 401-600= 18UNITS. IF GREATER THAN 400, GIVE 18UNITS AND LET PROVIDER KNOW. Discharge Orders: Discharge Order (Routine); Ordered 04/24/24 Ordered By: Jony Lugo Referrals: Heather Damon MD [Physician] - 2 weeks Discharge Diet: Cardiac Discharge Activity: Resume usual activity Patient Instructions: Altered Mental Status (ED), Opioid Safety Activity Restrictions/Additional Instructions: -if you have any recurrent stroke like symptoms please call 911 Discharge Attestations Time Spent in Discharge Care*: greater than 30 min Quality Metrics Clinical Quality Measures [ Cerebrovascular Accident { Contraindication to Antithrombotic: None; antithrombotic prescribed; Contraindication to Anticoagulation: Overlap treatment not indicated; Contraindication to Statin: None; Statin prescribed;}. No reported AMI, CVA or VTE this stay] Coding Level of Care Code 63446 Total time (in minutes) for Discharge: 45 Diagnoses Altered mental status R41.82 Diabetes mellitus type 2 in obese E11.69; E66.9 BPH (benign prostatic hyperplasia) N40.0 Acute CVA (cerebrovascular accident) I63.9 COVID-19 U07.1 Status post left upper extremity amputation Z89.202
[2024-04-24 11:42] LABS: Glucose Point of Care 162 mg/dL (70-110)
[2024-04-24] MEDS: insulin lispro 100 unit/1 mL SUBCUT (12:49)
--- NOTE | 2024-04-24 12:53 | PC.NURSE ---
This nurse called to give report to [facility] and spoke with Crista who said, nursing staff was currently busy and it would be a while . This nurse left her name and return phone number and advised Crista to have nursing staff call when able.
--- NOTE | 2024-04-24 14:08 | PC.NURSE ---
Report called by this nurse to ARDEN Vincent, at [place]. Updated on patient's discharge information. All questions addressed at this time. Patient awaiting ride via EMS
[2024-04-24 14:10] LABS: Lymes IGG WB <0.90 index
--- NOTE | 2024-04-24 15:29 | PC.SOCIAL ---
IMM Updated IMM initialed and dated. Copy given to patient and copy placed in chart.
[2024-04-24 16:26] LABS: Glucose Point of Care 126 mg/dL (70-110)
[2024-04-28 23:10] LABS: RMSF IGG NOT DETECTED; RMSF IGM NOT DETECTED
[2024-04-30 17:10] LABS: E. Chaffeensis AB IGG <1:64; E. Chaffeensis AB IGM <1:20
== END 2024-04-24 16:59 | disposition skilled nursing facility (03) | DRG 64 ==
LOC: ER 16:48 → MEDSURG 19:07
PROVIDERS: Admitting Provider Family Medicine; Emergency Provider Emergency Medicine; PCP Family Medicine; Visit Provider Family Medicine
DX: I63.9 Cerebral infarction, unspecified (principal); U07.1 COVID-19; G93.40 Encephalopathy, unspecified; N40.0 Benign prostatic hyperplasia without lower urinary tract symptoms; F41.9 Anxiety disorder, unspecified; M10.9 Gout, unspecified; E11.22 Type 2 diabetes mellitus with diabetic chronic kidney disease; N18.9 Chronic kidney disease, unspecified; E66.9 Obesity, unspecified; M17.0 Bilateral primary osteoarthritis of knee; Z68.35 Body mass index [BMI] 35.0-35.9, adult; Z79.82 Long term (current) use of aspirin; Z79.4 Long term (current) use of insulin; Z86.73 Personal history of transient ischemic attack (TIA), and cerebral infarction without residual deficits; Z89.202 Acquired absence of left upper limb, unspecified level; Z87.891 Personal history of nicotine dependence
CPT/HCPCS: 36415; 36416; 51702; 70450; 70496; 70498; 70551; 71045; 80048; 80053; 80061; 80306; 80307; 81003; 81015; 82962; 83036; 83605; 83880; 84145; 84439; 84443; 84481; 84484; 85025; 85651; 86140; 86617; 86618; 86666; 86757; 87040; 87426; 87486; 87581; 87633; 92523; 92610; 93005; 93306; 93880; 93970; 94664; 96361; 96372; 96374; 99285; G0378; J1650; J1815; J1885; J2470; J7030; Q9956; Q9967

== ENCOUNTER 2024-04-30 13:21 | Emergency (ER) | payer MEDICARE, OTHER, SELFPAY ==
[2024-04-30] VITALS (19 sets, daily range): BP systolic 100–145; BP diastolic 57–94; PULSE 96–108; RESP 16–24; TEMP 36.8; O2SAT 91–98; BMI 37.3
--- NOTE | 2024-04-30 13:26 | CT_ITS ---
WS: [id number] CT HEAD TECHNIQUE: Noncontrast CT of the head obtained from the skullbase to the vertex. CLINICAL INFORMATION: Encephalopathy, altered mental status COMPARISON: MRI 04/22/[address] 04/21/2024 DLP: 656.[address] scans at [facility] use at least one of these dose optimization techniques: automated e xposure control; mA and/or kV adjustment per patient size (includes targeted exams where dose is matc hed to clinical indication); or iterative reconstruction. FINDINGS: No evidence of intracranial hemorrhage or mass effect. Ventricular system and basal cisterns are cotter nt. Moderate small vessel changes with moderate parenchymal volume loss. No extra-axial fluid collect ions. No evidence of mass or mass effect. Previously described small RIGHT parietal infarcts better s een on the MRI. Fluid in the paranasal sinuses. Mastoid air cells are well aerated. Cavernous carotid calcification. Soft tissue edema LEFT frontal scalp. CT/CT head wo con* [id number] IMPRESSION: 1. No evidence of intracranial hemorrhage or mass effect. 2. Fluid in the paranasal sinuses. 3. No acute intracranial findings.
--- NOTE | 2024-04-30 13:27 | XR_ITS ---
WS: [id number] Exam: XR chest 1V portable [id number] Date/Time of Exam: 04/30/2024 1:27 PM Reason For Exam: Weakness Comparison 04/21/2024. The lungs are clear and fully inflated. Normal cardiomediastinal silhouette. No pleural effusions. [place] structures are intact. XR/XR chest 1V portable [id number] IMPRESSION: 1. Negative chest.
--- NOTE | 2024-04-30 13:33 | ED_ITS ---
HPI - Altered Mental Status 2 General: Chief Complaint: Altered Mental Status Stated Complaint: AMS, Unresponsive Time Seen by Provider: 04/30/24 13:24 History of Present Illness: 74-year-old male with a history of strok e, left arm amputation, dementia diabetes, CKD and gout who presents emergency room by ambulance from long term with diminished responsiveness and possible fever. He was diagnosed with COVID for 5 days ago. Apparently today he has been less responsive and had a fever. Here he had a temp of 102 axillary but an oral temp of only 98.2. He is agitated and somewhat unresponsive. No other history able to be obtained. Related Data Home Medications Medication Instructions Recorded Confirmed acetaminophen 500 mg tablet 1,000 mg PO Q6H PRN Pain 04/11/24 04/30/24 amlodipine 10 mg tablet 10 mg PO DAILY 04/11/24 04/30/24 aspirin 81 mg tablet,delayed 81 mg PO DAILY 04/11/24 04/30/24 release atorvastatin 40 mg tablet 40 mg PO DAILY 04/11/24 04/30/24 bisacodyl 10 mg rectal suppository 10 mg ME DAILY PRN Constipation 04/11/24 04/30/24 bisacodyl 5 mg tablet 10 mg PO BID PRN Constipation 04/11/24 04/30/24 clobazam 10 mg tablet 5 mg PO BID 04/11/24 04/30/24 gabapentin 100 mg capsule 100 mg PO TID 04/11/24 04/30/24 insulin aspart (niacinamide) See Rx Instructions .Route .COMPLEX 04/11/24 04/30/24 (U-100) 100 unit/mL subcutaneous solution (Fiasp U-100 Insulin) lacosamide 10 mg/mL oral solution 100 mg PO BID 04/11/24 04/30/24 (Vimpat) levetiracetam 100 mg/mL oral 7.5 mg PO BID 04/11/24 04/30/24 solution lidocaine 5 % topical patch See Rx Instructions .Route .COMPLEX 04/11/24 04/30/24 (Lidoderm) magnesium hydroxide 400 mg/5 mL 30 ml PO DAILY PRN Constipation 04/11/24 04/30/24 oral suspension (Milk of Magnesia) melatonin 5 mg tablet 5 mg PO BEDTIME 04/11/24 04/30/24 methocarbamol 500 mg tablet 500 mg PO TID PRN MUSCLE SPASMS 04/11/24 04/30/24 polyethylene glycol 3350 17 See Rx Instructions .Route 04/11/24 04/30/24 gram/dose oral powder (Miralax) .COMPLEX PRN Constipation quetiapine 25 mg tablet (Seroquel) See Rx Instructions .Route .COMPLEX 04/11/24 04/30/24 sodium phosphates 19 gram-7 118 ml ME DAILY PRN Constipation 04/11/24 04/30/24 gram/118 mL enema (Fleet Enema) tramadol 50 mg tablet 50 mg PO TID PRN Pain 04/11/24 04/30/24 cephalexin 500 mg capsule 500 mg PO Q6H 04/30/24 04/30/24 furosemide 20 mg tablet (Lasix) 20 mg PO DAILY PRN Edema 04/30/24 04/30/24 potassium chloride 8 mEq 8 meq PO DAILY 04/30/24 04/30/24 tablet,extended release Previous Rx's Medication Instructions Recorded clopidogrel 75 mg tablet 75 mg PO DAILY 18 days #18 tabs 04/24/24 levothyroxine 25 mcg tablet 25 mcg PO QAM 30 days #30 tabs 04/24/24 nystatin 100,000 unit/gram topical 1 applic topical BID 30 days #60 04/24/24 powder (Nystop) grams hydrocodone 5 mg-acetaminophen 325 1 tab PO Q8H PRN pain #20 tabs 04/30/24 mg tablet polyethylene glycol 3350 17 17 g PO DAILY #510 grams 04/30/24 gram/dose oral powder (Miralax) Allergies Allergy/AdvReac Type Severity Reaction Status Date / Time acetaminophen Allergy ADR-Abdominal Verified 04/11/24 10:45 [From Tylenol-Codeine #3] Pain codeine Allergy ADR-Abdominal Verified 04/11/24 10:45 [From Tylenol-Codeine #3] Pain Review of Systems 2 General: Reports: ROS unobtainable due to medical condition and ROS unobtainable due to mental status [facility] ED 2 PFSH: Medical History (Updated 04/30/24 @ 15:10 by Odalys Sepulveda MD) Altered mental status 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, stroke with seizure Elevated lactic acid level History of asthma BPH (benign prostatic hyperplasia) Anxiety Gout Diabetes mellitus type 2 in obese Chronic kidney disease Osteoarthritis of knees, bilateral Surgical History (Updated 04/25/24 @ 00:02 by LUIS Gates) History of cardiac catheterization History of nasal septoplasty History of excision of mass abdominal wall hematoma Family History Father CAD (coronary artery disease) Hypertension Lung disease Hyperlipidemia Mother Cancer Sister Diabetes Cancer Denies family history of Dementia Chronic kidney disease (CKD) Stroke Social History Smoking and tobacco/nicotine status: former use of tobacco/nicotine Quit status (tobacco/nicotine): has quit using Year quit tobacco: 2009 Alcohol intake: former 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 Neck: Supple, trachea midline. Eye: Extraocular movements are intact. Ears, nose, mouth and throat: Dry oral mucosa. Cardiovascular: Regular rate and rhythm, Normal peripheral perfusion. Respiratory: Lungs are clear to auscultation, respirations are non-labored, breath sounds are equal, Symmetrical chest wall expansion. Gastrointestinal: Soft, Nontender, Non distended, Normal bowel sounds. Musculoskeletal: no deformity. Neurological: Patient alert is awake but difficult to understand his speech., No obvious focal neurological deficit observed. Psychiatric: unable to assess. Course 2 Vital Signs: Vital signs: Vital Signs Temperature 98.2 F 04/30/24 13:38 Pulse Rate 102 H 04/30/24 15:00 Respiratory Rate 18 04/30/24 15:00 Blood Pressure 127/58 04/30/24 15:00 Pulse Oximetry 93 04/30/24 15:00 Oxygen Delivery Me thod Room Air 04/30/24 15:00 MDM - Altered Mental Status Medical Decision Making Medical decision making: Differential diagnosis including but not limited to and based on the above HPI, review of systems and physical exam: In this patient with altered mental status: Stroke. Hypoglycemia. Metabolic encephalopathy. Infections such as pneumonia, urinary tract infection, Covid-19, Influenza. Electrolyte abnormalities such as hypernatremia. Renal failure / uremia. Hepatic encephalopathy. Hypoxemia. Hypercapnic respiratory failure. Psychosis. Drug or alcohol intoxication. Medication overdose. Orders placed to evaluate differential diagnosis based on the above differential, HPI and physical exam Chest x-ray: No acute process. No infiltrate. No pneumothorax. This was reviewed and interpreted by myself the ER physician. CT head: Moderate volume loss and small vessel disease, no acute intracranial process. no intracranial hemorrhage, no evidence of infarct. no evidence of acute fracture.This was reviewed and interpreted by myself the ER physician. Lab Review: Laboratory results were reviewed and interpreted by myself the emergency room physician. Lab work is fairly unremarkable. White count is 10. Hemoglobin is 10. BUN/creatinine are 17 and 1.5 which are just slightly over his baseline and he is being given some fluids. Urinalysis is negative for infection. He does have a elevated CRP which be seen with chronic illness and with COVID. I reviewed the patient's medical record. Reexamination: Patient is back to his baseline according to family. He is moaning often that he has pain and family request pain medications. I am giving him some morphine here and send him home with some hydrocodone for a few days. No changes in his neuroexam. No increased work of breathing. Maintaining sats on room air. Assessment and plan: Dehydration Resolved unresponsiveness COVID-19 ?Fluids and morphine in the emergency room. - Discharged home - Discussed findings and plan with patient. Answered any questions. - All laboratory values were reviewed and interpreted personally by myself, the ER physician - All imaging was reviewed and interpreted personally by myself, the ER physician. - Evaluation and treatment of this problem were appropriate in the emergency setting Lab Data 04/30/24 13:32 04/30/24 13:[address] 04/30/24 13:26 IMPRESSION: 1. No evidence of intracranial hemorrhage or mass effect. 2. Fluid in the paranasal sinuses. 3. No acute intracranial findings. Chest X-Ray 04/30/24 13:27 IMPRESSION: 1. Negative chest. Laboratory Results WBC 10.40 10^3/uL (3.29-11.43) 04/30/24 13:32 RBC 3.80 10^6/uL (3.85-5.65) L 04/30/24 13:32 Hgb 10.40 g/dL (11.27-16.99) L 04/30/24 13:32 Hct 32.8 % (37-53) L 04/30/24 13:32 MCV 86.3 fl (82-101) 04/30/24 13:32 MCH 27.4 pg (27-33) 04/30/24 13:32 MCHC 31.7 g/dL (30-55) 04/30/24 13:32 RDW 14.4 % (12.1-15.1) 04/30/24 13:32 Plt Count 361 10^3/cmm (157-399) 04/30/24 13:32 MPV 9.7 fL (7.4-10.4) 04/30/24 13:32 Neut % (Auto) 71.2 % 04/30/24 13:32 Lymph % (Auto) 18.3 % 04/30/24 13:32 [place] % (Auto) 9.5 % 04/30/24 13:32 Eos % (Auto) 0.0 % 04/30/24 13:32 Baso % (Auto) 0.3 % 04/30/24 13:32 Neut # (Auto) 7.41 10^3/uL (1.8-7.7) 04/30/24 13:32 Lymph # (Auto) 1.9 10^3/uL (0.8-4.8) 04/30/24 13:32 [place] # (Auto) 1.0 10^3/uL (0.2-0.9) H 04/30/24 13:32 Eos # (Auto) 0.0 10^3/uL (0.0-0.8) 04/30/24 13:32 Baso # (Auto) 0.0 10^3/uL (0.0-0.1) 04/30/24 13:32 Nucleated RBC % (auto) 0 % 04/30/24 13:32 Nucleated RBCs # 0.0 /100WBC 04/30/24 13:32 Specimen Type Arterial 04/30/24 13:56 Sample Site Brachial, right 04/30/24 13:56 ABG pH 7.47 (7.35-7.45) H 04/30/24 13:56 ABG pCO2 35.4 mmHg (35-45) 04/30/24 13:56 ABG pO2 74.5 mmHg (80.0-100.0) L 04/30/24 13:56 ABG PO2/FiO2 Ratio 354 04/30/24 13:56 ABG HCO3 25.8 mmol/L (22-26) 04/30/24 13:56 ABG O2 Saturation 96.0 04/30/24 13:56 ABG Base Excess 2.2 mmol/L (-2.0-2.0) H 04/30/24 13:56 Nahun Test N/a 04/30/24 13:56 A-a O2 Gradient 4.1 mmHg (5-10) L 04/30/24 13:56 Hematocrit 31.6 % (42-52) L 04/30/24 13:56 Hgb O2 Saturation 96.2 % (95-100) 04/30/24 13:56 Carboxyhemoglobin 1.2 %THgb (0.4-20.1) 04/30/24 13:56 Methemoglobin < 0.0 % (0.4-1.5) L 04/30/24 13:56 Total Hemoglobin 10.3 g/dL (14-18) L 04/30/24 13:56 Sodium 143.0 mmol/L (131-143) 04/30/24 13:56 Potassium 4.0 mmol/L (3.5-5.0) 04/30/24 13:56 Glucose 132.0 mg/dL (70-115) H 04/30/24 13:56 Ionized Calcium 1.2 mmol/L (1.1-1.4) 04/30/24 13:56 O2 Delivery Device None 04/30/24 13:56 FiO2 21.0 % 04/30/24 13:56 Clinical Reimbursement Specialist ID Patrick 04/30/24 13:56 Sodium 139 mmol/L (136-145) 04/30/24 13:32 Potassium 4.0 mmol/L (3.5-5.1) 04/30/24 13:32 Chloride 102 mmol/L (98-107) 04/30/24 13:32 Carbon Dioxide 24 mmol/L (22-29) 04/30/24 13:32 Anion Gap 17.0 (5-19) 04/30/24 13:32 BUN 17 mg/dL (8-23) 04/30/24 13:32 Creatinine 1.5 mg/dL (0.7-1.2) H 04/30/24 13:32 GFR Calculation Not Reportable 04/30/24 13:32 Glucose 137 mg/dL (65-115) H 04/30/24 13:32 Calculated Osmolality 292 mOsm/kg (285-295) 04/30/24 13:32 Lactic Acid 1.5 mmol/L (0.5-2.2) 04/30/24 13:32 Calcium 9.2 mg/dL (8.5-10.5) 04/30/24 13:32 Total Bilirubin 0.7 mg/dL (0.15-1.2) 04/30/24 13:32 AST 15 U/L (0-40) 04/30/24 13:32 ALT 12 U/L (0-41) 04/30/24 13:32 Alkaline Phosphatase 104 U/L (40-130) 04/30/24 13:32 Creatine Kinase 44 U/L (39-308) 04/30/24 13:32 C-Reactive Protein 259.4 mg/L (0.0-4.9) H 04/30/24 13:32 Total Protein 7.5 g/dL (6.6-8.7) 04/30/24 13:32 Albumin 3.8 g/dL (3.5-5.2) 04/30/24 13:32 Globulin 3.7 g/dL (1.3-4.6) 04/30/24 13:32 Procalcitonin 0.33 ng/mL (0-0.5) 04/30/24 13:32 Urine Color Yellow (Yellow) 04/30/24 14:10 Urine Appearance Clear (CLEAR) 04/30/24 14:10 Urine pH 5.0 (5-7) 04/30/24 14:10 Ur Specific [place] 1.020 (1.005-1.030) 04/30/24 14:10 Urine Protein 1+ (Negative) A 04/30/24 14:10 Urine Glucose (UA) Negative (Normal) 04/30/24 14:10 Urine Ketones Trace (Negative) 04/30/24 14:10 Urine Blood Negative (Negative) 04/30/24 14:10 Urine Nitrate Negative (Negative) 04/30/24 14:10 Urine Bilirubin Negative (Negative) 04/30/24 14:10 Urine Urobilinogen 1.0 mg/dL (Negative) 04/30/24 14:10 Ur Leukocyte Esterase Trace (Negative) A 04/30/24 14:10 Urine RBC 0-2 /hpf (0-2) 04/30/24 14:10 Urine WBC 0-5 /hpf (0-5) 04/30/24 14:10 Ur Squamous Epith Cells 0-5 /hpf (0-5) 04/30/24 14:10 Amorphous Sediment Not Reportable 04/30/24 14:10 Urine Bacteria None seen /hpf (NONE) 04/30/24 14:10 Hyaline Casts 6.17 /lpf 04/30/24 14:10 All radiology interpretation(s) finalized by discharge Discharge Plan Discharge Patient Disposition: Home Clinical Impression: Altered mental status Condition: Stable Prescriptions: New hydrocodone-acetaminophen 5-325 mg tablet 1 tab PO Q8H PRN (Reason: pain) Qty: 20 0RF Rx Instructions: Take 1/2 to 1 tab every 8 hours as needed for pain Miralax 17 gram/dose powder 17 g PO DAILY Qty: 510 0RF Rx Instructions: Take 1 scoop daily while taking pain medications. No Action clopidogrel 75 mg Tablet 75 mg PO DAILY 18 Days Qty: 18 0RF nystatin [Nystop] 100,000 unit/gram Powder 1 applic topical BID 30 Days Qty: 60 0RF levothyroxine 25 mcg Tablet 25 mcg PO QAM 30 Days Qty: 30 0RF quetiapine [Seroquel] 25 mg Tablet See Rx Instructions .ROUTE .COMPLEX Rx Instructions: TAKE 1 TABLET BY MOUTH TWICE DAILY FOR RESTLESSNESS AND AGGITATION AND GIVE 3 TABLETS AT BEDTIME. atorvastatin 40 mg Tablet 40 mg PO DAILY methocarbamol 500 mg Tablet 500 mg PO TID PRN (Reason: MUSCLE SPASMS) aspirin 81 mg Tablet,Delayed Release (Dr/Ec) 81 mg PO DAILY tramadol 50 mg Tablet 50 mg PO TID PRN (Reason: Pain) acetaminophen 500 mg Tablet 1,000 mg PO Q6H PRN (Reason: Pain) magnesium hydroxide [Milk of Magnesia] 400 mg/5 mL Suspension 30 ml PO DAILY PRN (Reason: Constipation) amlodipine 10 mg Tablet 10 mg PO DAILY bisacodyl 10 mg Suppository 10 mg ME DAILY PRN (Reason: Constipation) lidocaine [Lidoderm] 5 % Adhesive Patch,Medicated See Rx Instructions .ROUTE .COMPLEX Rx Instructions: APPLY 1 PATCH TOPICALLY IN THE MORNING AND REMOVE AT BEDTIME. Fleet Enema 19-7 gram/118 mL Enema 118 ml ME DAILY PRN (Reason: Constipation) gabapentin 100 mg Capsule 100 mg PO TID polyethylene glycol 3350 [Miralax] 17 gram/dose Powder See Rx Instructions .ROUTE .COMPLEX PRN (Reason: Constipation) Rx Instructions: TAKE 17 g (1 CAPFUL) MIXED IN 4 TO 8 OUNCES LIQUID AND DRINK ENTIRE LIQUID DAILY NEEDED FOR CONSTIPATION. bisacodyl 5 mg Tablet 10 mg PO BID PRN (Reason: Constipation) levetiracetam 100 mg/mL Solution 7.5 mg PO BID melatonin 5 mg Tablet 5 mg PO BEDTIME lacosamide [Vimpat] 10 mg/mL Solution 100 mg PO BID clobazam 10 mg Tablet 5 mg PO BID Fiasp U-100 Insulin 100 unit/mL Solution See Rx Instructions .ROUTE .COMPLEX Rx Instructions: INJECT 3 TIMES DAILY PER SLIDING SCALE: BS 181-200= 3UNITS, 201/250= 6UNITS, 251-300= 9UNITS, 301-350= 12UNITS, 351-400= 15UNITS, 401-600= 18UNITS. IF GREATER THAN 400, GIVE 18UNITS AND LET PROVIDER KNOW. potassium chloride 8 mEq Tablet Extended Release 8 meq PO DAILY Keflex 500 mg Capsule 500 mg PO Q6H Lasix 20 mg Tablet 20 mg PO DAILY PRN (Reason: Edema) Discharge Orders: Discharge ED (Routine); Ordered 04/30/24 Ordered By: Odalys Sepulveda Referrals: Arelis Field MD [Primary Care Provider] - Discharge Diet: Usual diet Discharge Activity: Increase activity as tolerated Patient Instructions: Altered Mental Status (ED), Opioid Safety, Pain Management Activity Restrictions/Additional Instructions: Thank you for choosing [facility] for your healthcare needs today. Please realize this is an emergency room and that we are providing you with a medical screening exam and this may not be complete and all inclusive of all the testing and or work up that you may need to determine your ailment or severity of your illness. You have been screened and evaluated and felt safe for discharge. Health conditions do change or evolve sometimes and as such it is important that you follow up with your Primary Doctor to be re checked, 3-5 days is a general good time frame for follow up. You are always welcome to return to the ED for re assessment if your symptoms are worsening or you have new concerns Coding Level of Care Code ED [employer] for Lyudmila Hauser
[2024-04-30 13:38] LABS: Basophils % 0.3 %; Hematocrit 32.8 % (37-53); Lymphocytes # 1.9 10^3/uL (0.8-4.8); Lymphocytes % 18.3 %; Mean Corpuscular HGB Conc 31.7 g/dL (30-55); Mean Corpuscular Hemoglobin 27.4 pg (27-33); Mean Corpuscular Volume 86.3 fl (82-101); Mean Platelet Volume 9.7 fL (7.4-10.4); Monocytes % 9.5 %; Neutrophils # 7.41 10^3/uL (1.8-7.7); Neutrophils % 71.2 %; Nucleated Red Blood Cells % 0 %; Platelet Count 361 10^3/cmm (157-399); Red Cell Distribution Width 14.4 % (12.1-15.1)
[2024-04-30 13:55] LABS: ABG PCO2 35.4 mmHg (35-45); ABG PH Result 7.47 (7.35-7.45); Alveolar-Arterial Oxygen Gradi 4.1 mmHg (5-10); Arterial Blood Gas Hematocrit 31.6 % (42-52); Base Excess ABG 2.2 mmol/L (-2.0-2.0); Blood Gas Operator Identificat SAM; Blood Gas Sample Site Brachial, right; Blood Gas Sample Type Arterial; Carboxyhemoglobin 1.2 %THgb (0.4-20.1); HCO3 ABG 25.8 mmol/L (22-26); HGB O2 Sat 96.2 % (95-100); Ionized Calcium Level - ABG 1.2 mmol/L (1.1-1.4); Methemoglobin < 0.0 % (0.4-1.5); PO2 ABG 74.5 mmHg (80.0-100.0); PO2 FiO2 Ratio Arterial Blood 354; Total Hemoglobin 10.3 g/dL (14-18)
[2024-04-30 13:59] LABS: Lactic Sepsis W/Reflex 1.5 mmol/L (0.5-2.2)
[2024-04-30 14:00] LABS: Alanine Aminotransferase 12 U/L (0-41); Albumin Level 3.8 g/dL (3.5-5.2); Alkaline Phosphatase 104 U/L (40-130); Aspartate Amino Transferase 15 U/L (0-40); Blood Urea Nitrogen 17 mg/dL (8-23); C Reactive Protein 259.4 mg/L (0.0-4.9); Calcium 9.2 mg/dL (8.5-10.5); Carbon Dioxide 24 mmol/L (22-29); Chloride 102 mmol/L (98-107); Creatine Phosphokinase 44 U/L (39-308); Globulin 3.7 g/dL (1.3-4.6); Glucose 137 mg/dL (65-115); Osmolality Calculated 292 mOsm/kg (285-295); Sodium 139 mmol/L (136-145); Total Bilirubin 0.7 mg/dL (0.15-1.2); Total Protein 7.5 g/dL (6.6-8.7)
[2024-04-30 14:01] LABS: Creatinine Clr Calc Pharmacy 58.9448
[2024-04-30 14:07] LABS: Procalcitonin 0.33 ng/mL (0-0.5)
[2024-04-30 14:34] LABS: Bilirubin Urine Negative (Negative); Blood Urine Negative (Negative); Glucose Urine UA Negative (Normal); Ketones Urine Trace (Negative); Leukocyte Esterase Urine Trace (Negative); Nitrate Urine Negative (Negative); Protein Urine 1+ (Negative); Urine Appearance Clear (CLEAR); Urine Color Yellow (Yellow)
[2024-04-30 14:37] LABS: Bacteria Urine None Seen /hpf; Hyaline Casts Urine 6.17 /lpf; RBC Urine 0-2 /hpf (0-2); Squamous Epithelial Cell Urine 0-5 /hpf (0-5); WBC Urine 0-5 /hpf (0-5)
[2024-04-30 14:48] LABS: UA Slide Review UA Slide Review Perf
[2024-04-30] MEDS: ondansetron 2 mg/ML SDV 2 mL 4 MG IVP (14:57)
[2024-04-30] MEDS: morphine 4 mg/mL SDV 1 mL IVP (14:58)
--- NOTE | 2024-04-30 15:15 | PC.NURSE ---
pt o2 sat after receiving morphine went from 94% RA to 89%, pt noted to be resting. pt placed on 2L NC, sat now at 96%.
[2024-04-30] MEDS: sodium chloride 0.9% 1,000 ML 999 ML IV (15:41)
--- NOTE | 2024-04-30 15:52 | PC.NURSE ---
this nurse called [facility], spoke to nurse Ashly, states there transport is gone for the day.
--- NOTE | 2024-04-30 16:08 | PC.NURSE ---
pt's sister states pt is not allergic to Tylenol. pt sister okay with staff getting pt into sister's vehicle as transport home.
--- NOTE | 2024-04-30 17:05 | PC.NURSE ---
pt at 1400 checked and changed, was incontinent of urine. pt checked at 1700, pt currently dry.
--- NOTE | 2024-04-30 18:33 | PC.NURSE ---
PATIENT WAITING ON [facility] TRANSPORT. [facility] CALLED AT APPROXIMATELY [id number] FOR RIDE.
[2024-04-30 20:09] LABS: Glucose Point of Care 123 mg/dL (70-110)
--- NOTE | 2024-04-30 20:30 | XRR_ITS ---
PROCEDURE INFORMATION: Exam: XR Right Wrist Exam date and time: 04/30/2024 8:36 PM Age: 74 years old Clinical indication: Pain; Wrist; Right; Additional info: Wrist pain TECHNIQUE: Imaging protocol: Radiologic exam of the right wrist. Views: 3 or more views. COMPARISON: No relevant prior studies available. FINDINGS: Bones/joints: No acute fractures or subluxations. Degenerative changes wrist with joint space narrowing. Soft tissues: Normal. Vasculature: Atherosclerotic calcifications. XR/XR wrist RT min 3V* [id number] IMPRESSION: No acute fractures or subluxations.
--- NOTE | 2024-04-30 20:33 | PC.NURSE ---
this nurse noted when moving pt's right wrist pt would grimace in pain and shake. upon assessment, green bruising noted to right wrist/forearm, with swelling noted, painful to the touch. pt unable to follow commands to bend or flex. this nurse notified Dr. Sepulveda.
[2024-04-30] MEDS: cefTRIAXone 1,000 mg SDV 1000 MG IVP (20:42)
--- NOTE | 2024-04-30 22:23 | PC.NURSE ---
pt checked, brief wet with urine, pt changed with 2 staff members. pt in dry brief at this time.
== END 2024-04-30 22:38 | disposition home or self-care (01) ==
PROVIDERS: Emergency Provider Emergency Medicine; PCP Family Medicine
DX: R41.82 Altered mental status, unspecified (principal); Z79.02 Long term (current) use of antithrombotics/antiplatelets; Z79.82 Long term (current) use of aspirin; Z79.4 Long term (current) use of insulin; Z87.891 Personal history of nicotine dependence; Z86.73 Personal history of transient ischemic attack (TIA), and cerebral infarction without residual deficits; E11.22 Type 2 diabetes mellitus with diabetic chronic kidney disease; N18.9 Chronic kidney disease, unspecified
CPT/HCPCS: 36415; 36416; 36600; 70450; 71045; 73110; 80051; 80053; 81001; 82330; 82550; 82805; 82962; 83605; 84145; 85025; 86140; 87040; 96361; 96374; 96375; 99285; J0696; J2270; J2405; J7030

== ENCOUNTER 2024-05-01 10:19 | Emergency (ER) | payer MEDICARE, OTHER, SELFPAY ==
--- NOTE | 2024-05-01 10:22 | ECG_ITS ---
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 Measurements Intervals [place] Rate: 94 P: 52 ND: 169 QRS: 41 QRSD: 108 T: 65 QT: 371 QTc: 464 Interpretive Statements SINUS RHYTHM LOW QRS VOLTAGE IN EXTREMITY LEADS [QRS DEFLECTION < 0.5 mV IN LIMB LEADS] Compared to ECG 04/22/2024 02:01:04 Indeterminate axis no longer present Electronically Signed On 05-02-2024 9:05:20 CDT by Martha Power M.D. [email or web address]
[2024-05-01 10:27] VITALS: BP 137/73; PULSE 93; RESP 18; TEMP 36.8; O2SAT 95; BMI 38.0
--- NOTE | 2024-05-01 10:30 | XR_ITS ---
WS: [id number] Exam: XR chest 1V portable [id number] Date/Time of Exam: 05/01/2024 10:30 AM Reason For Exam: Weakness Comparison 04/30/2024. Lungs are clear and fully expanded. New small RIGHT basal pleural effusion has occurred since the las t study. Heart size is top limits normal. The mediastinum is normal in contour. Regional bony element s are unremarkable. XR/XR chest 1V portable [id number] IMPRESSION: 1. Development of new small RIGHT basal pleural effusion since previous study. No other change. Recommendation: A detailed PA and lateral chest radiograph would be suggested f or follow-up.
--- NOTE | 2024-05-01 10:39 | W.ED.AMS ---
HPI - Altered Mental Status General: Chief Complaint: Altered Mental Status Stated Complaint: AMS Time Seen by Provider: 05/01/24 10:26 History of Present Illness: 74-year-old male with a history of stroke, left arm amputation, dementia diabetes, CKD and gout who presents emergency room by ambulance from intermediate with diminished responsiveness and possible fever again today. They report he had a fever of 103 and the gave Tylenol and by the time EMS arrived he was back to his baseline and is afebrile. I did a very extensive workup on him yesterday. He is complaining of right arm pain and an x-ray was done showed no fractures. He had a head CT, chest x-ray and a full lab workup. He seems to be back to his baseline which is minimally communicative, but responsive. Vitals are normal. He is not requiring oxygen. Related Data Home Medications Medication Instructions Recorded Confirmed acetaminophen 500 mg tablet 1,000 mg PO Q6H PRN Pain 04/11/24 04/30/24 amlodipine 10 mg tablet 10 mg PO DAILY 04/11/24 04/30/24 aspirin 81 mg tablet,delayed 81 mg PO DAILY 04/11/24 04/30/24 release atorvastatin 40 mg tablet 40 mg PO DAILY 04/11/24 04/30/24 bisacodyl 10 mg rectal suppository 10 mg RI DAILY PRN Constipation 04/11/24 04/30/24 bisacodyl 5 mg tablet 10 mg PO BID PRN Constipation 04/11/24 04/30/24 clobazam 10 mg tablet 5 mg PO BID 04/11/24 04/30/24 gabapentin 100 mg capsule 100 mg PO TID 04/11/24 04/30/24 insulin aspart (niacinamide) See Rx Instructions .Route .COMPLEX 04/11/24 04/30/24 (U-100) 100 unit/mL subcutaneous solution (Fiasp U-100 Insulin) lacosamide 10 mg/mL oral solution 100 mg PO BID 04/11/24 04/30/24 (Vimpat) levetiracetam 100 mg/mL oral 7.5 mg PO BID 04/11/24 04/30/24 solution lidocaine 5 % topical patch See Rx Instructions .Route .COMPLEX 04/11/24 04/30/24 (Lidoderm) magnesium hydroxide 400 mg/5 mL 30 ml PO DAILY PRN Constipation 04/11/24 04/30/24 oral suspension (Milk of Magnesia) melatonin 5 mg tablet 5 mg PO BEDTIME 04/11/24 04/30/24 methocarbamol 500 mg tablet 500 mg PO TID PRN MUSCLE SPASMS 04/11/24 04/30/24 polyethylene glycol 3350 17 See Rx Instructions .Route 04/11/24 04/30/24 gram/dose oral powder (Miralax) .COMPLEX PRN Constipation quetiapine 25 mg tablet (Seroquel) See Rx Instructions .Route .COMPLEX 04/11/24 04/30/24 sodium phosphates 19 gram-7 118 ml RI DAILY PRN Constipation 04/11/24 04/30/24 gram/118 mL enema (Fleet Enema) tramadol 50 mg tablet 50 mg PO TID PRN Pain 04/11/24 04/30/24 cephalexin 500 mg capsule 500 mg PO Q6H 04/30/24 04/30/24 furosemide 20 mg tablet (Lasix) 20 mg PO DAILY PRN Edema 04/30/24 04/30/24 potassium chloride 8 mEq 8 meq PO DAILY 04/30/24 04/30/24 tablet,extended release Previous Rx's Medication Instructions Recorded clopidogrel 75 mg tablet 75 mg PO DAILY 18 days #18 tabs 04/24/24 levothyroxine 25 mcg tablet 25 mcg PO QAM 30 days #30 tabs 04/24/24 nystatin 100,000 unit/gram topical 1 applic topical BID 30 days #60 04/24/24 powder (Nystop) grams hydrocodone 5 mg-acetaminophen 325 1 tab PO Q8H PRN pain #20 tabs 04/30/24 mg tablet polyethylene glycol 3350 17 17 g PO DAILY #510 grams 04/30/24 gram/dose oral powder (Miralax) Allergies Allergy/AdvReac Type Severity Reaction Status Date / Time acetaminophen Allergy ADR-Abdominal Verified 04/11/24 10:45 [From Tylenol-Codeine #3] Pain codeine Allergy ADR-Abdominal Verified 04/11/24 10:45 [From Tylenol-Codeine #3] Pain Review of Systems General: Reports: ROS unobtainable due to medical condition PFS ED PFSH: Medical History (Updated 05/01/24 @ 11:06 by Odalys Sepulveda MD) Altered mental status 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, stroke with seizure Elevated lactic acid level History of asthma BPH (benign prostatic hyperplasia) Anxiety Gout Diabetes mellitus type 2 in obese Chronic kidney disease Osteoarthritis of knees, bilateral Surgical History (Updated 04/25/24 @ 00:02 by LUIS Gates) History of cardiac catheterization History of nasal septoplasty History of excision of mass abdominal wall hematoma Family History Father CAD (coronary artery disease) Hypertension Lung disease Hyperlipidemia Mother Cancer Sister Diabetes Cancer Denies family history of Dementia Chronic kidney disease (CKD) Stroke Social History Smoking and tobacco/nicotine status: former use of tobacco/nicotine Quit status (tobacco/nicotine): has quit using Year quit tobacco: 2009 Alcohol intake: former Year of sobriety/quit date alcohol: 1999 Substance/Drug Use: never Marital status: Number of children: 3 service: No Physical Exam Narrative: General: responds, but is fairly somnolent Skin: Warm, dry Head: Normocephalic, atraumatic. Neck: Supple, trachea midline. Eye: Extraocular movements are intact. Ears, nose, mouth and throat: Tacky oral mucosa Cardiovascular: Regular rate and rhythm, Normal peripheral perfusion. Respiratory: Lungs are clear to auscultation, respirations are non-labored, breath sounds are equal, Symmetrical chest wall expansion. Gastrointestinal: Soft, Nontender, Non distended, Normal bowel sounds. Musculoskeletal: no deformity. Neurological: Not Alert and oriented, No obvious focal neurological deficit observed. Psychiatric: unable to assess. Course Vital Signs: Vital signs: Vital Signs Temperature 98.2 F 05/01/24 10:27 Pulse Rate 93 05/01/24 10:27 Respiratory Rate 24 H 05/01/24 11:04 Blood Pressure 137/73 05/01/24 11:04 Pulse Oximetry 96 05/01/24 11:04 Oxygen Delivery Me thod Room Air 05/01/24 10:27 MDM - Altered Mental Status Medical Decision Making Medical decision making: Differential diagnosis including but not limited to and based on the above HPI, review of systems and physical exam: In this patient with altered mental status: Stroke. Hypoglycemia. Metabolic encephalopathy. Infections such as pneumonia, urinary tract infection, Covid-19, Influenza. Electrolyte abnormalities such as hypernatremia. Renal failure / uremia. Hepatic encephalopathy. Hypoxemia. Hypercapnic respiratory failure. Psychosis. Drug or alcohol intoxication. Medication overdose. Orders placed to evaluate differential diagnosis based on the above differential, HPI and physical exam Chest x-ray: Very small right pleural effusion. No acute process. No infiltrate. No pneumothorax. This was reviewed and interpreted by myself the ER physician. Lab Review: Laboratory results were reviewed and interpreted by myself the emergency room physician. Lab work is unremarkable other than creatinine are little bit up again at 20 and 1.5. I think he needs more fluids. Likely needs fluids pushed at the intermediate. I reviewed the patient's medical record. Reexamination: Patient remained stable. No increased work of breathing. No altered mental status. No focal motor deficits. Assessment and plan: COVID-19 Fever Unresponsive episode Dehydration Arm pain ?Saline bolus in the emergency room. - Discharged home - Discussed findings and plan with patient. Answered any questions. - All laboratory values were reviewed and interpreted personally by myself, the ER physician - All imaging was reviewed and interpreted personally by myself, the ER physician. - Evaluation and treatment of this problem were appropriate in the emergency setting Lab Data 05/01/24 10:42 05/01/24 10:42 Radiology Impressions Chest X-Ray 05/01/24 10:30 IMPRESSION: 1. Development of new small RIGHT basal pleural effusion since previous study. No other change. Recommendation: A detailed PA and lateral chest radiograph would be suggested for follow-up. Laboratory Results WBC 10.17 10^3/uL (3.29-11.43) 05/01/24 10:42 RBC 3.50 10^6/uL (3.85-5.65) L 05/01/24 10:42 Hgb 9.40 g/dL (11.27-16.99) L 05/01/24 10:42 Hct 30.8 % (37-53) L 05/01/24 10:42 MCV 88.0 fl (82-101) 05/01/24 10:42 MCH 26.9 pg (27-33) L 05/01/24 10:42 MCHC 30.5 g/dL (30-55) 05/01/24 10:42 RDW 14.6 % (12.1-15.1) 05/01/24 10:42 Plt Count 325 10^3/cmm (157-399) 05/01/24 10:42 MPV 9.5 fL (7.4-10.4) 05/01/24 10:42 Neut % (Auto) 75.8 % 05/01/24 10:42 Lymph % (Auto) 12.0 % 05/01/24 10:42 Kern % (Auto) 11.2 % 05/01/24 10:42 Eos % (Auto) 0.0 % 05/01/24 10:42 Baso % (Auto) 0.3 % 05/01/24 10:42 Neut # (Auto) 7.71 10^3/uL (1.8-7.7) H 05/01/24 10:42 Lymph # (Auto) 1.2 10^3/uL (0.8-4.8) 05/01/24 10:42 Kern # (Auto) 1.1 10^3/uL (0.2-0.9) H 05/01/24 10:42 Eos # (Auto) 0.0 10^3/uL (0.0-0.8) 05/01/24 10:42 Baso # (Auto) 0.0 10^3/uL (0.0-0.1) 05/01/24 10:42 Nucleated RBC % (auto) 0 % 05/01/24 10:42 Nucleated RBCs # 0.0 /100WBC 05/01/24 10:42 Sodium 140 mmol/L (136-145) 05/01/24 10:42 Potassium 3.8 mmol/L (3.5-5.1) 05/01/24 10:42 Chloride 105 mmol/L (98-107) 05/01/24 10:42 Carbon Dioxide 22 mmol/L (22-29) 05/01/24 10:42 Anion Gap 16.8 (5-19) 05/01/24 10:42 BUN 20 mg/dL (8-23) 05/01/24 10:42 Creatinine 1.5 mg/dL (0.7-1.2) H 05/01/24 10:42 GFR Calculation Not Reportable 05/01/24 10:42 Glucose 144 mg/dL (65-115) H 05/01/24 10:42 Calculated Osmolality 295 mOsm/kg (285-295) 05/01/24 10:42 Calcium 8.7 mg/dL (8.5-10.5) 05/01/24 10:42 Total Bilirubin 0.7 mg/dL (0.15-1.2) 05/01/24 10:42 AST 25 U/L (0-40) 05/01/24 10:42 ALT 14 U/L (0-41) 05/01/24 10:42 Alkaline Phosphatase 102 U/L (40-130) 05/01/24 10:42 Total Protein 6.9 g/dL (6.6-8.7) 05/01/24 10:42 Albumin 3.1 g/dL (3.5-5.2) L 05/01/24 10:42 Globulin 3.8 g/dL (1.3-4.6) 05/01/24 10:42 All radiology interpretation(s) finalized by discharge Discharge Plan Discharge Patient Disposition: Home Clinical Impression: COVID-19, Dehydration, Episode of unresponsiveness, Fever, Right arm pain Condition: Stable Prescriptions: No Action clopidogrel 75 mg Tablet 75 mg PO DAILY 18 Days Qty: 18 0RF nystatin [Nystop] 100,000 unit/gram Powder 1 applic topical BID 30 Days Qty: 60 0RF levothyroxine 25 mcg Tablet 25 mcg PO QAM 30 Days Qty: 30 0RF quetiapine [Seroquel] 25 mg Tablet See Rx Instructions .ROUTE .COMPLEX Rx Instructions: TAKE 1 TABLET BY MOUTH TWICE DAILY FOR RESTLESSNESS AND AGGITATION AND GIVE 3 TABLETS AT BEDTIME. atorvastatin 40 mg Tablet 40 mg PO DAILY methocarbamol 500 mg Tablet 500 mg PO TID PRN (Reason: MUSCLE SPASMS) aspirin 81 mg Tablet,Delayed Release (Dr/Ec) 81 mg PO DAILY tramadol 50 mg Tablet 50 mg PO TID PRN (Reason: Pain) acetaminophen 500 mg Tablet 1,000 mg PO Q6H PRN (Reason: Pain) magnesium hydroxide [Milk of Magnesia] 400 mg/5 mL Suspension 30 ml PO DAILY PRN (Reason: Constipation) amlodipine 10 mg Tablet 10 mg PO DAILY bisacodyl 10 mg Suppository 10 mg RI DAILY PRN (Reason: Constipation) lidocaine [Lidoderm] 5 % Adhesive Patch,Medicated See Rx Instructions .ROUTE .COMPLEX Rx Instructions: APPLY 1 PATCH TOPICALLY IN THE MORNING AND REMOVE AT BEDTIME. Fleet Enema 19-7 gram/118 mL Enema 118 ml RI DAILY PRN (Reason: Constipation) gabapentin 100 mg Capsule 100 mg PO TID polyethylene glycol 3350 [Miralax] 17 gram/dose Powder See Rx Instructions .ROUTE .COMPLEX PRN (Reason: Constipation) Rx Instructions: TAKE 17 g (1 CAPFUL) MIXED IN 4 TO 8 OUNCES LIQUID AND DRINK ENTIRE LIQUID DAILY NEEDED FOR CONSTIPATION. bisacodyl 5 mg Tablet 10 mg PO BID PRN (Reason: Constipation) levetiracetam 100 mg/mL Solution 7.5 mg PO BID melatonin 5 mg Tablet 5 mg PO BEDTIME lacosamide [Vimpat] 10 mg/mL Solution 100 mg PO BID clobazam 10 mg Tablet 5 mg PO BID Fiasp U-100 Insulin 100 unit/mL Solution See Rx Instructions .ROUTE .COMPLEX Rx Instructions: INJECT 3 TIMES DAILY PER SLIDING SCALE: BS 181-200= 3UNITS, 201/250= 6UNITS, 251-300= 9UNITS, 301-350= 12UNITS, 351-400= 15UNITS, 401-600= 18UNITS. IF GREATER THAN 400, GIVE 18UNITS AND LET PROVIDER KNOW. potassium chloride 8 mEq Tablet Extended Release 8 meq PO DAILY Keflex 500 mg Capsule 500 mg PO Q6H Lasix 20 mg Tablet 20 mg PO DAILY PRN (Reason: Edema) hydrocodone-acetaminophen 5-325 mg tablet 1 tab PO Q8H PRN (Reason: pain) Qty: 20 0RF Rx Instructions: Take 1/2 to 1 tab every 8 hours as needed for pain Miralax 17 gram/dose powder 17 g PO DAILY Qty: 510 0RF Rx Instructions: Take 1 scoop daily while taking pain medications. Discharge Orders: Discharge ED (Routine); Ordered 05/01/24 Ordered By: Odalys Sepulveda Referrals: Arelis Field MD [Primary Care Provider] - Discharge Diet: Usual diet Discharge Activity: Increase activity as tolerated Patient Instructions: Altered Mental Status (ED), How to Recover from COVID-19 at Home (ED), Opioid Safety, Pain Management Activity Restrictions/Additional Instructions: Thank you for choosing [facility] for your healthcare needs today. Please realize this is an emergency room and that we are providing you with a medical screening exam and this may not be complete and all inclusive of all the testing and or work up that you may need to determine your ailment or severity of your illness. You have been screened and evaluated and felt safe for discharge. Health conditions do change or evolve sometimes and as such it is important that you follow up with your Primary Doctor to be re checked, 3-5 days is a general good time frame for follow up. You are always welcome to return to the ED for re assessment if your symptoms are worsening or you have new concerns Coding Level of Care Code ED Investigation Division Lieutenant for Lyudmila Hauser
[2024-05-01 10:56] LABS: Basophils % 0.3 %; Hematocrit 30.8 % (37-53); Lymphocytes # 1.2 10^3/uL (0.8-4.8); Mean Corpuscular HGB Conc 30.5 g/dL (30-55); Mean Corpuscular Hemoglobin 26.9 pg (27-33); Mean Platelet Volume 9.5 fL (7.4-10.4); Monocytes # 1.1 10^3/uL (0.2-0.9); Monocytes % 11.2 %; Neutrophils # 7.71 10^3/uL (1.8-7.7); Neutrophils % 75.8 %; Nucleated Red Blood Cells % 0 %; Platelet Count 325 10^3/cmm (157-399); Red Cell Distribution Width 14.6 % (12.1-15.1); White Blood Count 10.17 10^3/uL (3.29-11.43)
[2024-05-01 11:02] LABS: Alanine Aminotransferase 14 U/L (0-41); Albumin Level 3.1 g/dL (3.5-5.2); Alkaline Phosphatase 102 U/L (40-130); Anion Gap 16.8 (5-19); Aspartate Amino Transferase 25 U/L (0-40); Blood Urea Nitrogen 20 mg/dL (8-23); Calcium 8.7 mg/dL (8.5-10.5); Carbon Dioxide 22 mmol/L (22-29); Chloride 105 mmol/L (98-107); Creatinine Clr Calc Pharmacy 59.4992; Globulin 3.8 g/dL (1.3-4.6); Glucose 144 mg/dL (65-115); Osmolality Calculated 295 mOsm/kg (285-295); Potassium 3.8 mmol/L (3.5-5.1); Sodium 140 mmol/L (136-145); Total Bilirubin 0.7 mg/dL (0.15-1.2); Total Protein 6.9 g/dL (6.6-8.7)
[2024-05-01 11:04] VITALS: BP 137/73; RESP 24; O2SAT 96
[2024-05-01] MEDS: sodium chloride 0.9% 1,000 ML 999 ML IV (11:30)
== END 2024-05-01 12:45 | disposition home or self-care (01) ==
PROVIDERS: Emergency Provider Emergency Medicine; PCP Family Medicine
DX: U07.1 COVID-19 (principal); E86.0 Dehydration; R40.4 Transient alteration of awareness; M79.601 Pain in right arm; R50.9 Fever, unspecified; Z79.02 Long term (current) use of antithrombotics/antiplatelets; Z79.82 Long term (current) use of aspirin; Z79.4 Long term (current) use of insulin; Z87.891 Personal history of nicotine dependence; Z86.73 Personal history of transient ischemic attack (TIA), and cerebral infarction without residual deficits; E11.22 Type 2 diabetes mellitus with diabetic chronic kidney disease; N18.9 Chronic kidney disease, unspecified
CPT/HCPCS: 36415; 71045; 80053; 85025; 93005; 99285; J7030

== ENCOUNTER 2024-05-03 10:56 | Observation (INO) | payer MEDICARE, OTHER, SELFPAY ==
[2024-05-03 11:00] VITALS: BP 125/67; PULSE 88; RESP 16; TEMP 37.3; O2SAT 97; BMI 38.7
--- NOTE | 2024-05-03 11:06 | XR_ITS ---
WS: [id number] Exam: XR chest 1V portable [id number] Date/Time of Exam: 05/03/2024 11:15 AM Reason For Exam: fever Comparison 05/01/2024. The lungs are fully expanded and clear. Heart size top limits normal. The mediastinum is normal in co ntour. Bony structures are intact. No obvious pleural effusion. XR/XR chest 1V portable [id number] IMPRESSION: 1. No acute cardiopulmonary finding.
--- NOTE | 2024-05-03 11:06 | CT_ITS ---
WS: [id number] CT HEAD TECHNIQUE: Noncontrast CT of the head obtained from the skullbase to the vertex. CLINICAL INFORMATION: ams COMPARISON: 04/30/2024 DLP: 1193.[address] scans at [facility] use at least one of these dose optimization techniques: automated e xposure control; mA and/or kV adjustment per patient size (includes targeted exams where dose is matc hed to clinical indication); or iterative reconstruction. FINDINGS: No evidence of intracranial hemorrhage or mass effect. Ventricular system and basal cisterns are cotter nt. Moderate small vessel changes with moderate parenchymal volume loss. No extra-axial fluid collect ions. No evidence of mass or mass effect. Vascular calcification. Small vessel changes in the rodney. Paranasal sinusitis with air-fluid levels in the frontal sinuses, ethmoid air cells, and maxillary si nuses. Fluid in the RIGHT sphenoid sinus. Mastoid air cells are well aerated. Normal posterior nasoph arynx. CT/CT head wo con* [id number] IMPRESSION: 1. No evidence of intracranial hemorrhage or mass effect. 2. No significant interval changes. 3. Paranasal sinusitis 4. No acute intracranial findings.
--- NOTE | 2024-05-03 11:07 | ECG_ITS ---
[facility] Test Date: 2024-05-03 Pat Name: Francisco Neal Department: Room: Gender: Male [employer] Technician: : 1950 Requested By: Luis Butler Order Number: [id number] Tang MD: Martha Power M.D. Measurements Intervals [place] Rate: 90 P: 54 WV: 167 QRS: 36 QRSD: 106 T: 29 QT: 349 QTc: 428 Interpretive Statements SINUS RHYTHM INDETERMINATE AXIS Compared to ECG 05/01/2024 10:22:26 Indeterminate axis now present Electronically Signed On 05-03-2024 18:17:20 CDT by Martha Power M.D. [id number]
--- NOTE | 2024-05-03 11:15 | W.ED.AMS ---
HPI - Altered Mental Status General: Chief Complaint: Altered Mental Status Stated Complaint: ams Time Seen by Provider: 05/03/24 11:03 Source: family and EMS Mode of arrival: EMS Limitations: altered mental status History of Present Illness: 74-year-old male is here from residential he has been seen twice in the ER recently for altered mental status fever weakness. He had COVID 2 weeks ago per residential patient has had increased altered mental status weakness and fever. States he has been increasingly weak even over the last 2 days is not able to eat today. Patient here is confused able to tell me his name but not able to answer any other questions. Related Data Home Medications Medication Instructions Recorded Confirmed acetaminophen 500 mg tablet 1,000 mg PO Q6H PRN Pain 04/11/24 05/03/24 amlodipine 10 mg tablet 10 mg PO DAILY 04/11/24 05/03/24 aspirin 81 mg tablet,delayed 81 mg PO DAILY 04/11/24 05/03/24 release atorvastatin 40 mg tablet 40 mg PO DAILY 04/11/24 05/03/24 bisacodyl 10 mg rectal suppository 10 mg AR DAILY PRN Constipation 04/11/24 05/03/24 bisacodyl 5 mg tablet 10 mg PO BID PRN Constipation 04/11/24 05/03/24 clobazam 10 mg tablet 5 mg PO BID 04/11/24 05/03/24 gabapentin 100 mg capsule 100 mg PO BID 04/11/24 05/03/24 insulin aspart (niacinamide) See Rx Instructions .Route .COMPLEX 04/11/24 05/03/24 (U-100) 100 unit/mL subcutaneous solution (Fiasp U-100 Insulin) lacosamide 10 mg/mL oral solution 100 mg PO BID 04/11/24 05/03/24 (Vimpat) levetiracetam 100 mg/mL oral 7.5 mg PO BID 04/11/24 05/03/24 solution lidocaine 5 % topical patch See Rx Instructions .Route .COMPLEX 04/11/24 05/03/24 (Lidoderm) magnesium hydroxide 400 mg/5 mL 30 ml PO DAILY PRN Constipation 04/11/24 05/03/24 oral suspension (Milk of Magnesia) melatonin 5 mg tablet 5 mg PO BEDTIME 04/11/24 05/03/24 methocarbamol 500 mg tablet 500 mg PO BID PRN MUSCLE SPASMS 04/11/24 05/03/24 polyethylene glycol 3350 17 See Rx Instructions .Route 04/11/24 05/03/24 gram/dose oral powder (Miralax) .COMPLEX PRN Constipation sodium phosphates 19 gram-7 118 ml AR DAILY PRN Constipation 04/11/24 05/03/24 gram/118 mL enema (Fleet Enema) cephalexin 500 mg capsule 500 mg PO Q6H 04/30/24 05/03/24 furosemide 20 mg tablet (Lasix) 20 mg PO DAILY PRN Edema 04/30/24 05/03/24 potassium chloride 8 mEq 8 meq PO DAILY 04/30/24 05/03/24 tablet,extended release quetiapine 25 mg tablet (Seroquel) 25 mg PO BEDTIME 05/03/24 05/03/24 Previous Rx's Medication Instructions Recorded clopidogrel 75 mg tablet 75 mg PO DAILY 18 days #18 tabs 04/24/24 levothyroxine 25 mcg tablet 25 mcg PO QAM 30 days #30 tabs 04/24/24 nystatin 100,000 unit/gram topical 1 applic topical BID 30 days #60 04/24/24 powder (Nystop) grams Allergies Allergy/AdvReac Type Severity Reaction Status Date / Time acetaminophen Allergy ADR-Abdominal Verified 04/11/24 10:45 [From Tylenol-Codeine #3] Pain codeine Allergy ADR-Abdominal Verified 04/11/24 10:45 [From Tylenol-Codeine #3] Pain Review of Systems General: Reports: ROS unobtainable due to mental status [facility] ED PFSH: Medical History Altered mental status 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, stroke with seizure Elevated lactic acid level History of asthma BPH (benign prostatic hyperplasia) Anxiety Gout Diabetes mellitus type 2 in obese Chronic kidney disease Osteoarthritis of knees, bilateral Surgical History History of cardiac catheterization History of nasal septoplasty History of excision of mass abdominal wall hematoma Family History Father CAD (coronary artery disease) Hypertension Lung disease Hyperlipidemia Mother Cancer Sister Diabetes Cancer Denies family history of Dementia Chronic kidney disease (CKD) Stroke Social History Smoking and tobacco/nicotine status: former use of tobacco/nicotine Quit status (tobacco/nicotine): has quit using Year quit tobacco: 2009 Alcohol intake: former Year of sobriety/quit date alcohol: 1999 Substance/Drug Use: never Marital status: Number of children: 3 service: No Physical Exam Const: COMMON NORMALS: negative for patient oriented x3 GENERAL APPEARANCE: ill appearing HENMT: COMMON NORMALS: normocephalic and atraumatic HEAD & SCALP: normocephalic and atraumatic Eye: COMMON NORMALS: Equal, round and reactive pupils present and EOMs intact bilaterally PUPIL: Yes Equal, round and reactive pupils present Neck/C-Spine: COMMON NORMALS: full ROM and supple Chest: COMMONS NORMALS: normal inspection of the chest Resp: COMMON NORMALS: normal respiratory effort, No retractions, No use of accessory muscles and clear to auscultation bilaterally AUSCULTATION: clear to auscultation bilaterally Cardio: COMMON NORMALS: regular rate, regular rhythm and No murmurs present (Cardio) RATE: regular rate RHYTHM: regular rhythm GI: COMMON NORMALS: Normal to inspection, nondistended, normoactive bowel sounds present, Soft to palpation, non-tender and no masses PALPATION: Yes Soft to palpation Extremity: COMMON NORMALS: normal to inspection and full ROM Neuro: COMMON NORMALS: moves all extremities and no focal motor deficits; negative for patient oriented x3 Psych: COMMON NORMALS: Normal thought process present and cooperative; negative for mental status grossly normal THOUGHT PROCESS: Normal thought process present Skin: COMMON NORMALS: no rashes or lesions noted and no wounds GENERAL SKIN EXAM: no rashes or lesions noted Course Vital Signs: Vital signs: Vital Signs Temperature 99.1 F 05/03/24 11:00 Pulse Rate 88 05/03/24 11:00 Respiratory Rate 16 05/03/24 11:00 Blood Pressure 125/67 05/03/24 11:00 Pulse Oximetry 97 05/03/24 11:00 MDM - Altered Mental Status Medical Decision Making Patient presents here from residential has had worsening confusion low-grade fevers work appears normal but he is quite confused spoke to the hospitalist will meet for observation Lab Data 05/03/24 10:45 05/03/24 10:45 Radiology Impressions Chest X-Ray 05/03/24 11:06 IMPRESSION: 1. No acute cardiopulmonary finding. Head CT 05/03/24 11:06 IMPRESSION: 1. No evidence of intracranial hemorrhage or mass effect. 2. No significant interval changes. 3. Paranasal sinusitis 4. No acute intracranial findings. Laboratory Results WBC 9.22 10^3/uL (3.29-11.43) 05/03/24 10:45 RBC 3.57 10^6/uL (3.85-5.65) L 05/03/24 10:45 Hgb 9.70 g/dL (11.27-16.99) L 05/03/24 10:45 Hct 30.8 % (37-53) L 05/03/24 10:45 MCV 86.3 fl (82-101) 05/03/24 10:45 MCH 27.2 pg (27-33) 05/03/24 10:45 MCHC 31.5 g/dL (30-55) 05/03/24 10:45 RDW 14.6 % (12.1-15.1) 05/03/24 10:45 Plt Count 382 10^3/cmm (157-399) 05/03/24 10:45 MPV 9.9 fL (7.4-10.4) 05/03/24 10:45 Neut % (Auto) 77.1 % 05/03/24 10:45 Lymph % (Auto) 15.4 % 05/03/24 10:45 Logan % (Auto) 6.3 % 05/03/24 10:45 Eos % (Auto) 0.0 % 05/03/24 10:45 Baso % (Auto) 0.4 % 05/03/24 10:45 Neut # (Auto) 7.11 10^3/uL (1.8-7.7) 05/03/24 10:45 Lymph # (Auto) 1.4 10^3/uL (0.8-4.8) 05/03/24 10:45 Logan # (Auto) 0.6 10^3/uL (0.2-0.9) 05/03/24 10:45 Eos # (Auto) 0.0 10^3/uL (0.0-0.8) 05/03/24 10:45 Baso # (Auto) 0.0 10^3/uL (0.0-0.1) 05/03/24 10:45 Nucleated RBC % (auto) 0 % 05/03/24 10:45 Nucleated RBCs # 0.0 /100WBC 05/03/24 10:45 PT 14.70 SECONDS (12.1-14.9) 05/03/24 10:45 INR 1.11 (0.8-1.2) 05/03/24 10:45 Sodium 143 mmol/L (136-145) 05/03/24 10:45 Potassium 3.9 mmol/L (3.5-5.1) 05/03/24 10:45 Chloride 106 mmol/L (98-107) 05/03/24 10:45 Carbon Dioxide 24 mmol/L (22-29) 05/03/24 10:45 Anion Gap 16.9 (5-19) 05/03/24 10:45 BUN 20 mg/dL (8-23) 05/03/24 10:45 Creatinine 1.1 mg/dL (0.7-1.2) 05/03/24 10:45 GFR Calculation Not Reportable 05/03/24 10:45 Glucose 125 mg/dL (65-115) H 05/03/24 10:45 Calculated Osmolality 300 mOsm/kg (285-295) H 05/03/24 10:45 Lactic Acid 1.2 mmol/L (0.5-2.2) 05/03/24 10:45 Calcium 8.9 mg/dL (8.5-10.5) 05/03/24 10:45 Magnesium 2.1 mg/dL (1.7-2.3) 05/03/24 10:45 Total Bilirubin 0.4 mg/dL (0.15-1.2) 05/03/24 10:45 AST 76 U/L (0-40) H 05/03/24 10:45 ALT 33 U/L (0-41) 05/03/24 10:45 Alkaline Phosphatase 160 U/L (40-130) H 05/03/24 10:45 Total Protein 7.0 g/dL (6.6-8.7) 05/03/24 10:45 Albumin 3.4 g/dL (3.5-5.2) L 05/03/24 10:45 Globulin 3.6 g/dL (1.3-4.6) 05/03/24 10:45 TSH 34.17 uIU/mL (0.27-4.20) H 05/03/24 10:45 Urine Color Yellow (Yellow) 05/03/24 12:34 Urine Appearance Clear (CLEAR) 05/03/24 12:34 Urine pH 5.5 (5-7) 05/03/24 12:34 Ur Specific [place] 1.018 (1.005-1.030) 05/03/24 12:34 Urine Protein Trace (Negative) A 05/03/24 12:34 Urine Glucose (UA) Negative (Normal) 05/03/24 12:34 Urine Ketones Negative (Negative) 05/03/24 12:34 Urine Blood Negative (Negative) 05/03/24 12:34 Urine Nitrate Negative (Negative) 05/03/24 12:34 Urine Bilirubin Negative (Negative) 05/03/24 12:34 Urine Urobilinogen 1.0 mg/dL (Negative) 05/03/24 12:34 Ur Leukocyte Esterase Negative (Negative) 05/03/24 12:34 Urine RBC 0-2 /hpf (0-2) 05/03/24 12:34 Urine WBC 0-5 /hpf (0-5) 05/03/24 12:34 Ur Squamous Epith Cells 0-5 /hpf (0-5) 05/03/24 12:34 Amorphous Sediment Not Reportable 05/03/24 12:34 Urine Bacteria None seen /hpf (NONE) 05/03/24 12:34 Hyaline Casts 0-4 /lpf H 05/03/24 12:34 All radiology interpretation(s) finalized by discharge Discharge Plan Discharge Patient Disposition: Admitted As Inpatient Clinical Impression: Altered mental status, Weakness Condition: Stable Prescriptions: No Action clopidogrel 75 mg Tablet 75 mg PO DAILY 18 Days Qty: 18 0RF nystatin [Nystop] 100,000 unit/gram Powder 1 applic topical BID 30 Days Qty: 60 0RF levothyroxine 25 mcg Tablet 25 mcg PO QAM 30 Days Qty: 30 0RF Seroquel 25 mg Tablet 25 mg PO BEDTIME atorvastatin 40 mg Tablet 40 mg PO DAILY methocarbamol 500 mg Tablet 500 mg PO BID PRN (Reason: MUSCLE SPASMS) aspirin 81 mg Tablet,Delayed Release (Dr/Ec) 81 mg PO DAILY acetaminophen 500 mg Tablet 1,000 mg PO Q6H PRN (Reason: Pain) magnesium hydroxide [Milk of Magnesia] 400 mg/5 mL Suspension 30 ml PO DAILY PRN (Reason: Constipation) amlodipine 10 mg Tablet 10 mg PO DAILY bisacodyl 10 mg Suppository 10 mg AR DAILY PRN (Reason: Constipation) lidocaine [Lidoderm] 5 % Adhesive Patch,Medicated See Rx Instructions .ROUTE .COMPLEX Rx Instructions: APPLY 1 PATCH TOPICALLY IN THE MORNING AND REMOVE AT BEDTIME. Fleet Enema 19-7 gram/118 mL Enema 118 ml AR DAILY PRN (Reason: Constipation) gabapentin 100 mg Capsule 100 mg PO BID polyethylene glycol 3350 [Miralax] 17 gram/dose Powder See Rx Instructions .ROUTE .COMPLEX PRN (Reason: Constipation) Rx Instructions: TAKE 17 g (1 CAPFUL) MIXED IN 4 TO 8 OUNCES LIQUID AND DRINK ENTIRE LIQUID DAILY NEEDED FOR CONSTIPATION. bisacodyl 5 mg Tablet 10 mg PO BID PRN (Reason: Constipation) levetiracetam 100 mg/mL Solution 7.5 mg PO BID melatonin 5 mg Tablet 5 mg PO BEDTIME lacosamide [Vimpat] 10 mg/mL Solution 100 mg PO BID clobazam 10 mg Tablet 5 mg PO BID Fiasp U-100 Insulin 100 unit/mL Solution See Rx Instructions .ROUTE .COMPLEX Rx Instructions: INJECT 3 TIMES DAILY PER SLIDING SCALE: BS 181-200= 3UNITS, 201/250= 6UNITS, 251-300= 9UNITS, 301-350= 12UNITS, 351-400= 15UNITS, 401-600= 18UNITS. IF GREATER THAN 400, GIVE 18UNITS AND LET PROVIDER KNOW. potassium chloride 8 mEq Tablet Extended Release 8 meq PO DAILY cephalexin [Keflex] 500 mg Capsule 500 mg PO Q6H furosemide [Lasix] 20 mg Tablet 20 mg PO DAILY PRN (Reason: Edema) Referrals: Arelis Field MD [Primary Care Provider] - Patient Instructions: Altered Mental Status (ED) Coding Level of Care Code ED Server Programmer for Lyudmila Hauser
[2024-05-03] MEDS: sodium chloride 0.9% 500 ML IV (11:18)
[2024-05-03 11:30] LABS: Basophils % 0.4 %; Hematocrit 30.8 % (37-53); Lymphocytes # 1.4 10^3/uL (0.8-4.8); Lymphocytes % 15.4 %; Mean Corpuscular HGB Conc 31.5 g/dL (30-55); Mean Corpuscular Hemoglobin 27.2 pg (27-33); Mean Corpuscular Volume 86.3 fl (82-101); Mean Platelet Volume 9.9 fL (7.4-10.4); Monocytes # 0.6 10^3/uL (0.2-0.9); Monocytes % 6.3 %; Neutrophils # 7.11 10^3/uL (1.8-7.7); Neutrophils % 77.1 %; Nucleated Red Blood Cells % 0 %; Platelet Count 382 10^3/cmm (157-399); Red Blood Count 3.57 10^6/uL (3.85-5.65); Red Cell Distribution Width 14.6 % (12.1-15.1); White Blood Count 9.22 10^3/uL (3.29-11.43)
[2024-05-03 11:47] LABS: INR 1.11 (0.8-1.2)
[2024-05-03 11:51] LABS: Lactic Sepsis W/Reflex 1.2 mmol/L (0.5-2.2)
[2024-05-03 12:03] LABS: Alanine Aminotransferase 33 U/L (0-41); Albumin Level 3.4 g/dL (3.5-5.2); Alkaline Phosphatase 160 U/L (40-130); Anion Gap 16.9 (5-19); Aspartate Amino Transferase 76 U/L (0-40); Blood Urea Nitrogen 20 mg/dL (8-23); Calcium 8.9 mg/dL (8.5-10.5); Carbon Dioxide 24 mmol/L (22-29); Chloride 106 mmol/L (98-107); Creatinine Clr Calc Pharmacy 68.1873; Globulin 3.6 g/dL (1.3-4.6); Glucose 125 mg/dL (65-115); Magnesium 2.1 mg/dL (1.7-2.3); Osmolality Calculated 300 mOsm/kg (285-295); Potassium 3.9 mmol/L (3.5-5.1); Sodium 143 mmol/L (136-145); Thyroid Stimulating Hormone 34.17 uIU/mL (0.27-4.20); Total Bilirubin 0.4 mg/dL (0.15-1.2)
[2024-05-03 12:42] LABS: Charge for UA Resulting for Rev
[2024-05-03 12:47] LABS: Bilirubin Urine Negative (Negative); Blood Urine Negative (Negative); Glucose Urine UA Negative (Normal); Ketones Urine Negative (Negative); Leukocyte Esterase Urine Negative (Negative); Nitrate Urine Negative (Negative); Protein Urine Trace (Negative); Specific Gravity, Urine 1.018 (1.005-1.030); Urine Appearance Clear (CLEAR); Urine Color Yellow (Yellow); pH Urine 5.5 (5-7)
[2024-05-03 12:53] LABS: Bacteria Urine None Seen /hpf; Hyaline Casts Urine 0-4 /lpf; RBC Urine 0-2 /hpf (0-2); Squamous Epithelial Cell Urine 0-5 /hpf (0-5); WBC Urine 0-5 /hpf (0-5)
--- NOTE | 2024-05-03 13:24 | P.HP_ITS ---
Providers/Chief Complaint 2 Primary Care Provider: Arelis Field MD Chief Complaint: ams History of Present Illness Francisco Neal is a 74 year old male With past medical history of CVA requiring prolonged hospitalization at outside facility was intubated for prolonged period of time history of seizures during that hospitalization history of left arm amputation who was recently admitted to [facility] for altered mental status and presented again for altered mental status. He was recently discharged to alf. During last hospital admission he did have fluctuating mentation but on day of discharge she was alert to person but not to place or time and followed all commands no focal weakness. He has had recurrent strokes. He was discharged on aspirin Plavix. It was thought that there is a possibility that patient's episodes of altered mental status could be breakthrough seizures and he is on multiple seizure medications he will have to follow-up with neurology as outpatient. On discharge patient was alert to person to place but not to time he followed commands and has had intermittent episodes and mentation is significantly improved. He was discharged to correction facility. Pt's sister is at bedside. She states his mental status is at baseline. He has just been weaker than before. He has been on levothyroxine 25 mg daily. He has again presented today in the ER for altered mental status and weakness. He had COVID 2 weeks ago per alf and patient has had increased mental status weakness and fever. He has been increasingly weak over the last 2 days and has not been able to eat today. Patient is confused and unable to provide any kind of history at this time. He is afebrile. Medications/Allergies Home Medications Medication Instructions Recorded Confirmed Last Taken Type acetaminophen 500 mg tablet 1,000 mg PO Q6H PRN Pain 04/11/24 05/03/24 05/02/24 History amlodipine 10 mg tablet 10 mg PO DAILY 04/11/24 05/03/24 05/03/24 History aspirin 81 mg tablet,delayed 81 mg PO DAILY 04/11/24 05/03/24 05/03/24 History release atorvastatin 40 mg tablet 40 mg PO DAILY 04/11/24 05/03/24 05/02/24 History bisacodyl 10 mg rectal suppository 10 mg NV DAILY PRN Constipation 04/11/24 05/03/24 Unknown History bisacodyl 5 mg tablet 10 mg PO BID PRN Constipation 04/11/24 05/03/24 Unknown History clobazam 10 mg tablet 5 mg PO BID 04/11/24 05/03/24 05/03/24 History gabapentin 100 mg capsule 100 mg PO BID 04/11/24 05/03/24 05/03/24 History insulin aspart (niacinamide) See Rx Instructions .Route .COMPLEX 04/11/24 05/03/24 05/03/24 History (U-100) 100 unit/mL subcutaneous solution (Fiasp U-100 Insulin) lacosamide 10 mg/mL oral solution 100 mg PO BID 04/11/24 05/03/24 05/03/24 History (Vimpat) levetiracetam 100 mg/mL oral 7.5 mg PO BID 04/11/24 05/03/24 05/02/24 History solution lidocaine 5 % topical patch See Rx Instructions .Route .COMPLEX 04/11/24 05/03/24 05/03/24 History (Lidoderm) magnesium hydroxide 400 mg/5 mL 30 ml PO DAILY PRN Constipation 04/11/24 05/03/24 Unknown History oral suspension (Milk of Magnesia) melatonin 5 mg tablet 5 mg PO BEDTIME 04/11/24 05/03/24 05/02/24 History methocarbamol 500 mg tablet 500 mg PO BID PRN MUSCLE SPASMS 04/11/24 05/03/24 05/03/24 History polyethylene glycol 3350 17 See Rx Instructions .Route 04/11/24 05/03/24 04/17/24 History gram/dose oral powder (Miralax) .COMPLEX PRN Constipation sodium phosphates 19 gram-7 118 ml NV DAILY PRN Constipation 04/11/24 05/03/24 Unknown History gram/118 mL enema (Fleet Enema) clopidogrel 75 mg tablet 75 mg PO DAILY 18 days #18 tabs 04/24/24 05/03/24 05/03/24 Rx levothyroxine 25 mcg tablet 25 mcg PO QAM 30 days #30 tabs 04/24/24 05/03/24 05/03/24 Rx nystatin 100,000 unit/gram topical 1 applic topical BID 30 days #60 04/24/24 05/03/24 05/02/24 Rx powder (Nystop) grams cephalexin 500 mg capsule 500 mg PO Q6H 04/30/24 05/03/24 05/03/24 History furosemide 20 mg tablet (Lasix) 20 mg PO DAILY PRN Edema 04/30/24 05/03/24 05/03/24 History potassium chloride 8 mEq 8 meq PO DAILY 04/30/24 05/03/24 05/03/24 History tablet,extended release quetiapine 25 mg tablet (Seroquel) 25 mg PO BEDTIME 05/03/24 05/03/24 05/02/24 History Allergies Allergy/AdvReac Type Severity Reaction Status Date / Time acetaminophen Allergy ADR-Abdominal Verified 04/11/24 10:45 [From Tylenol-Codeine #3] Pain codeine Allergy ADR-Abdominal Verified 04/11/24 10:45 [From Tylenol-Codeine #3] Pain PFSH Acute 2 PFSH: Medical History (Updated 05/03/24 @ 13:30 by Renuka Gruber MD) Altered mental status 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, stroke with seizure Elevated lactic acid level History of asthma BPH (benign prostatic hyperplasia) Anxiety Gout Diabetes mellitus type 2 in obese Chronic kidney disease Osteoarthritis of knees, bilateral Surgical History History of cardiac catheterization History of nasal septoplasty History of excision of mass abdominal wall hematoma Family History Father CAD (coronary artery disease) Hypertension Lung disease Hyperlipidemia Mother Cancer Sister Diabetes Cancer Denies family history of Dementia Chronic kidney disease (CKD) Stroke Social History Smoking and tobacco/nicotine status: former use of tobacco/nicotine Quit status (tobacco/nicotine): has quit using Year quit tobacco: 2009 Alcohol intake: former Year of sobriety/quit date alcohol: 1999 Substance/Drug Use: never Marital status: Number of children: 3 service: No Vitals/I&O/Wt Last Vital Signs Temp 99.1 F 05/03/24 11:00 Pulse 88 05/03/24 11:00 Resp 16 05/03/24 11:00 BP 125/67 05/03/24 11:00 Pulse Ox 97 05/03/24 11:00 Weight last 48 hrs Weight 108.862 kg Physical Exam 2 Narrative: General: Alert oriented to self, patient seen lying in bed appearing comfortable at this time. HEENT: Normocephalic, atraumatic, EOMI, breathing comfortably on room air. Cardio: Regular rate rhythm, normal S1-S2, Respiratory: Good bilateral air entry, no wheezes no rhonchi appreciated GI: Abdomen soft, nontender, nondistended, bowel sounds + Behavior: Appropriate and cooperative Extremities: 1+ pedal edema b/l , left arm amputation. Data 05/04/24 03:40 05/04/24 03:40 Micro: Microbiology 05/03/24 11:36 Blood Culture - Preliminary Blood SPECIMEN COLLECTED 05/03/24 11:20 Blood Culture - Preliminary Blood SPECIMEN COLLECTED A&P Assessment and plan (1) Diabetes mellitus type 2 in obese: (2) BPH (benign prostatic hyperplasia): (3) Status post left upper extremity amputation: (4) Altered mental status: (5) Weakness: Plan #Progressive weakness #History of seizures #History of acute CVA involving splenium right corpus callosum, recently MRI performed #History of PE #Hypothyroidism, elevated TSH #History of another CVA in February, history of recurrent CVA. ? Patient may be having breakthrough seizures and has been weaker than before. He is afebrile. Was dx with hypothryoidism last admission and started on levothyroxine. Does not have any neck stiffness at this time. Will check prolactin, lactic acid ? CT head negative for acute stroke or bleed at this time. ? Continue patient on aspirin, atorvastatin, Plavix. ? Check Keppra level, Vimpat level ? Continue Keppra, Vimpat, Seroquel ? TSH 34. Will check T3 and free T4 ? Continue levothyroxine however will increase dose to 50/day. ? Check CBC CMP mag in a.m. ? Urinalysis unremarkable. ? Placed on IV fluids normal saline at 100 cc/h ? PT/OT ? Patient did have COVID recently 2 weeks ago. No longer having any respiratory complaints. Full code DVT prophylaxis: Heparin SQ twice daily Attestations 2 Medical Necessity Statement*: Observation status for altered mental status. Diagnoses Diabetes mellitus type 2 in obese E11.69; E66.9 BPH (benign prostatic hyperplasia) N40.0 Status post left upper extremity amputation Z89.202 Altered mental status R41.82 Weakness R53.1
[2024-05-03 13:39] LABS: Free T4 Free Thyroxine 0.58 ng/dL (0.82-1.77)
--- NOTE | 2024-05-03 13:56 | PC.NURSE ---
ezekiel mendoza called from [facility] for update. notified will be admitted for obs.
[2024-05-03 14:22] LABS: Prolactin 10.62 ng/mL (4.0-15.2)
[2024-05-03 14:40] LABS: C Reactive Protein 384.8 mg/L (0.0-4.9)
[2024-05-03 14:53] LABS: Cortisol Random 17.83 ug/dL (2.47-19.5)
[2024-05-03 15:42] VITALS: PULSE 95; RESP 16; O2SAT 97
--- NOTE | 2024-05-03 15:45 | PC.NURSE ---
report given to pepe mcgee rn
--- NOTE | 2024-05-03 16:01 | PC.NURSE ---
Addendum entered by Thais Crowell RN 05/03/24 16:39: Nurse name is Yuliana Original Note: Confirmed medication doses with Emily at [facility]. Reconfirmed twice. She states pt takes 7.5mg of keppra and 200mg of lacosamide BID
[2024-05-03 16:17] VITALS: BMI 38.7
[2024-05-03 16:21] VITALS: PULSE 86; RESP 16; O2SAT 98
[2024-05-03 16:25] LABS: Glucose Point of Care 177 mg/dL (70-110)
[2024-05-03] MEDS: nystatin powder 15 gm Btl 1 APPLIC TOPICAL (17:04)
[2024-05-03] MEDS: heparin 5,000 unit/mL INJ 1 mL 5000 UNIT SUBCUT (17:06)
[2024-05-03] MEDS: levETIRAcetam 1,000 mg/10 mL UDC 750 MG PO (17:06)
[2024-05-03] MEDS: lacosamide 50 mg Tablet 200 MG PO (17:07)
[2024-05-03] MEDS: sodium chloride 0.9% 1,000 ML 100 ML IV (17:07)
[2024-05-03] MEDS: levothyroxine 50 mcg Tablet PO (17:07)
--- NOTE | 2024-05-03 18:02 | PC.NURSE ---
pitting edema noted to bilateral feet. notified dr. henry. fluids paused.
[2024-05-03 19:47] VITALS: BP 150/65; PULSE 91; RESP 20; TEMP 37.3; O2SAT 98
[2024-05-04] VITALS (8 sets, daily range): BP systolic 106–159; BP diastolic 58–75; PULSE 79–106; RESP 15–20; TEMP 36.4–37.5; O2SAT 92–99; BMI 38.7
[2024-05-04] MEDS: heparin 5,000 unit/mL INJ 1 mL 5000 UNIT SUBCUT ×2 (03:41→17:03)
[2024-05-04 03:53] LABS: Basophils # 0.1 10^3/uL (0.0-0.1); Basophils % 0.7 %; Hematocrit 31.1 % (37-53); Lymphocytes # 1.3 10^3/uL (0.8-4.8); Lymphocytes % 16.6 %; Mean Corpuscular HGB Conc 30.5 g/dL (30-55); Mean Corpuscular Hemoglobin 26.8 pg (27-33); Mean Corpuscular Volume 87.9 fl (82-101); Mean Platelet Volume 9.4 fL (7.4-10.4); Monocytes # 0.6 10^3/uL (0.2-0.9); Monocytes % 7.2 %; Neutrophils # 5.66 10^3/uL (1.8-7.7); Neutrophils % 74.4 %; Nucleated Red Blood Cells % 0 %; Platelet Count 369 10^3/cmm (157-399); Red Blood Count 3.54 10^6/uL (3.85-5.65); Red Cell Distribution Width 14.9 % (12.1-15.1)
[2024-05-04 04:27] LABS: Alanine Aminotransferase 38 U/L (0-41); Albumin Level 3.1 g/dL (3.5-5.2); Alkaline Phosphatase 162 U/L (40-130); Anion Gap 16.5 (5-19); Aspartate Amino Transferase 84 U/L (0-40); Blood Urea Nitrogen 19 mg/dL (8-23); Calcium 8.5 mg/dL (8.5-10.5); Carbon Dioxide 23 mmol/L (22-29); Chloride 108 mmol/L (98-107); Creatinine Clr Calc Pharmacy 68.1873; Globulin 3.4 g/dL (1.3-4.6); Glucose 140 mg/dL (65-115); Osmolality Calculated 303 mOsm/kg (285-295); Potassium 3.5 mmol/L (3.5-5.1); Sodium 144 mmol/L (136-145); Total Bilirubin 0.4 mg/dL (0.15-1.2); Total Protein 6.5 g/dL (6.6-8.7)
[2024-05-04] MEDS: levothyroxine 25 mcg Tablet PO (04:42)
[2024-05-04] MEDS: haloperidol inj 5 mg/mL INJ 1 mL IVP (05:09)
[2024-05-04] MEDS: lacosamide 50 mg Tablet 200 MG PO ×2 (08:49→17:03)
[2024-05-04] MEDS: aspirin 81 mg EC Tablet PO (08:49)
[2024-05-04] MEDS: atorvastatin 40 mg Tablet PO (08:49)
[2024-05-04] MEDS: amlodipine 10 mg Tablet PO (08:49)
[2024-05-04] MEDS: levETIRAcetam 1,000 mg/10 mL UDC 750 MG PO ×2 (08:49→17:02)
[2024-05-04] MEDS: clopidogrel 75 mg Tablet PO (08:49)
[2024-05-04] MEDS: nystatin powder 15 gm Btl 1 APPLIC TOPICAL ×2 (08:56→17:03)
--- NOTE | 2024-05-04 10:27 | PC.NURSE ---
Spoke with patient's RN at [facility]. RN informed that patient was able to help with transfers and able to hold grab bars for bathroom use. Patient does have behavioral issues where if he does not want to do something he won't help with anything. Patient is prone to crawling out of bed at SNF and just sitting in the floor. It is reported that patient likes sitting on the floor. Patient is very restless presently and attempting to get out of bed. Informed Dr Gruber of current behavior. Will continue to monitor.
--- NOTE | 2024-05-04 11:43 | PC.NURSE ---
Patient requesting to have some food. Informed Dr Gruebr patient is okay with swallowing at this time. Received order to start Consistent Carb diet for lunch.
[2024-05-04] MEDS: ondansetron 2 mg/ML SDV 2 mL 4 MG IVP (13:06)
--- NOTE | 2024-05-04 13:10 | PC.NURSE ---
Patient c/o nausea. Spoke with Dr Gruber and received telephone order for Zofran 4mg every 8 hours as needed for nausea.
--- NOTE | 2024-05-04 13:57 | P.PN_ITS ---
Subjective 2 Subjective: seen today pt laying in bed he is awake and alert however appears tired. RN reports pt was confused overnight and was given haldol Vitals/I&O/Wt Last Vital Signs Temp 98.4 F 05/04/24 11:45 Pulse 106 H 05/04/24 11:45 Resp 15 05/04/24 11:45 BP 159/60 05/04/24 11:45 Pulse Ox 96 05/04/24 11:45 O2 Del Method Room Air 05/04/24 11:45 05/03/24 05/04/24 05/04/24 22:59 06:59 14:59 Intake Total 590 / 590 120 / 120 Balance 590 / 590 120 / 120 Weight last 48 hrs Weight 108.862 kg Weight 108.862 kg Weight 108.862 kg Physical Exam 2 Narrative: General: Alert oriented to self, patient seen lying in bed appearing comfortable at this time. HEENT: Normocephalic, atraumatic, EOMI, breathing comfortably on room air. Cardio: Regular rate rhythm, normal S1-S2, Respiratory: Good bilateral air entry, no wheezes no rhonchi appreciated GI: Abdomen soft, nontender, nondistended, bowel sounds + Behavior: Appropriate and cooperative Extremities: 1+ pedal edema b/l , left arm amputation. Data 05/04/24 03:40 05/04/24 03:40 Micro: Microbiology 05/03/24 11:36 Blood Culture - Preliminary Blood NEGATIVE TO DATE 05/03/24 11:20 Blood Culture - Preliminary Blood NEGATIVE TO DATE A&P Assessment and plan (1) Diabetes mellitus type 2 in obese: (2) BPH (benign prostatic hyperplasia): (3) Status post left upper extremity amputation: (4) Altered mental status: (5) Weakness: Plan #Progressive weakness #History of seizures #History of acute CVA involving splenium right corpus callosum, recently MRI performed #History of PE #Hypothyroidism, elevated TSH #History of another CVA in February, history of recurrent CVA. ? Patient may be having breakthrough seizures and has been weaker than before. He is afebrile. Was dx with hypothryoidism last admission and started on levothyroxine. Does not have any neck stiffness at this time. prolactin and lactic acid normal ? CT head negative for acute stroke or bleed at this time. ? Continue patient on aspirin, atorvastatin, Plavix. ? Check Keppra level, Vimpat level - pending ? Continue Keppra, Vimpat, Seroquel ? TSH 34. Free t4 low. order levothyroxine 50 daily - patient may need EEG as outpatient. We dont have neurology available at this time. He is at baseline mental status with sun downing. Family stated he is at baseline. He has been afebrile here. ? Check CBC CMP mag in a.m. ? Urinalysis unremarkable. ? IV fluids stopped. ? PT/OT ? Patient did have COVID recently 2 weeks ago. No longer having any respiratory complaints. - Continue to monitor in hospital. - Check PT/OT Full code DVT prophylaxis: Heparin SQ twice daily Attestations 2 Medical Necessity Statement*: Observation status for weakness Diagnoses Diabetes mellitus type 2 in obese E11.69; E66.9 BPH (benign prostatic hyperplasia) N40.0 Status post left upper extremity amputation Z89.202 Altered mental status R41.82 Weakness R53.1
[2024-05-04] MEDS: gabapentin 100 mg Capsule PO (17:03)
--- NOTE | 2024-05-04 17:10 | PC.NURSE ---
Spoke with Dr Gruber. Received ok to hold zyprexa for later tonight if needed.
[2024-05-04] MEDS: quetiapine 25 mg Tablet PO (22:48)
[2024-05-05 03:54] VITALS: BP 121/62; PULSE 74; RESP 16; TEMP 37.2; O2SAT 94
[2024-05-05] MEDS: heparin 5,000 unit/mL INJ 1 mL 5000 UNIT SUBCUT ×2 (04:24→17:51)
[2024-05-05] MEDS: levothyroxine 25 mcg Tablet PO (06:37)
[2024-05-05 07:17] VITALS: BP 113/67; PULSE 93; RESP 16; TEMP 37.2; O2SAT 94
[2024-05-05] MEDS: amlodipine 10 mg Tablet PO (07:37)
[2024-05-05] MEDS: levETIRAcetam 1,000 mg/10 mL UDC 750 MG PO ×2 (07:37→17:51)
[2024-05-05] MEDS: aspirin 81 mg EC Tablet PO (07:37)
[2024-05-05] MEDS: lacosamide 50 mg Tablet 200 MG PO ×2 (07:37→17:51)
[2024-05-05] MEDS: gabapentin 100 mg Capsule PO ×2 (07:37→17:51)
[2024-05-05] MEDS: atorvastatin 40 mg Tablet PO (07:37)
[2024-05-05] MEDS: clopidogrel 75 mg Tablet PO (07:37)
[2024-05-05] MEDS: nystatin powder 15 gm Btl 1 APPLIC TOPICAL ×2 (07:38→17:56)
[2024-05-05 08:11] VITALS: PULSE 96; RESP 16; O2SAT 96
--- NOTE | 2024-05-05 10:53 | PC.NURSE ---
Dr Gruber in to see patient. Patient may return to [facility] today with medication changes.
[2024-05-05 10:59] LABS: Basophils # 0.1 10^3/uL (0.0-0.1); Basophils % 0.8 %; Hematocrit 30.6 % (37-53); Lymphocytes # 1.1 10^3/uL (0.8-4.8); Lymphocytes % 15.2 %; Mean Corpuscular HGB Conc 30.7 g/dL (30-55); Mean Corpuscular Hemoglobin 27.5 pg (27-33); Mean Corpuscular Volume 89.5 fl (82-101); Mean Platelet Volume 9.2 fL (7.4-10.4); Monocytes # 0.5 10^3/uL (0.2-0.9); Monocytes % 7.5 %; Neutrophils # 5.42 10^3/uL (1.8-7.7); Neutrophils % 75.4 %; Nucleated Red Blood Cells % 0 %; Platelet Count 339 10^3/cmm (157-399); Red Blood Count 3.42 10^6/uL (3.85-5.65); White Blood Count 7.19 10^3/uL (3.29-11.43)
[2024-05-05 11:19] VITALS: BP 121/87; PULSE 76; TEMP 37.4; O2SAT 93
[2024-05-05 11:19] LABS: Anion Gap 15.7 (5-19); Blood Urea Nitrogen 15 mg/dL (8-23); Calcium 8.4 mg/dL (8.5-10.5); Carbon Dioxide 23 mmol/L (22-29); Chloride 105 mmol/L (98-107); Creatinine Clr Calc Pharmacy 67.9133; Glucose 124 mg/dL (65-115); Osmolality Calculated 292 mOsm/kg (285-295); Potassium 3.7 mmol/L (3.5-5.1); Sodium 140 mmol/L (136-145)
--- NOTE | 2024-05-05 13:14 | P.PN_ITS ---
Subjective 2 Subjective: Patient is back to baseline mental status however a little sleepy this morning as he received Seroquel and gabapentin last night. Patient sister was in yesterday evening and stated that he was back to baseline as well. So far workup has been negative. His skilled nursing was contacted however they stated they will not take him back today. Vitals/I&O/Wt Last Vital Signs Temp 99.4 F 05/05/24 11:19 Pulse 76 05/05/24 11:19 Resp 16 05/05/24 08:11 BP 121/87 05/05/24 11:19 Pulse Ox 93 05/05/24 11:19 O2 Del Method Room Air 05/05/24 11:19 05/04/24 05/05/24 05/05/24 22:59 06:59 14:59 Intake Total 60 / 180 Balance 60 / 180 Weight last 48 hrs Weight 108.04 kg Weight 108.862 kg Weight 108.862 kg Physical Exam 2 Narrative: General: Sleeping HEENT: Normocephalic, atraumatic, EOMI, breathing comfortably on room air. Cardio: Regular rate rhythm, normal S1-S2, Respiratory: Good bilateral air entry, no wheezes no rhonchi appreciated GI: Abdomen soft, nontender, nondistended, bowel sounds + Behavior: Appropriate and cooperative Extremities: 1+ pedal edema b/l , left arm amputation. Data 05/05/24 10:51 05/05/24 10:51 Micro: Microbiology 05/03/24 11:36 Blood Culture - Preliminary Blood NEGATIVE TO DATE 05/03/24 11:20 Blood Culture - Preliminary Blood NEGATIVE TO DATE A&P Assessment and plan (1) Diabetes mellitus type 2 in obese: (2) BPH (benign prostatic hyperplasia): (3) Status post left upper extremity amputation: (4) Altered mental status: (5) Weakness: Plan #Progressive weakness #History of seizures #History of acute CVA involving splenium right corpus callosum, recently MRI performed #History of PE #Hypothyroidism, elevated TSH #History of another CVA in February, history of recurrent CVA. ? Patient may be having breakthrough seizures and has been weaker than before. He is afebrile. Was dx with hypothryoidism last admission and started on levothyroxine. Does not have any neck stiffness at this time. prolactin and lactic acid normal ? CT head negative for acute stroke or bleed at this time. ? Continue patient on aspirin, atorvastatin, Plavix. ? Check Keppra level, Vimpat level - pending ? Continue Keppra, Vimpat, Seroquel ? TSH 34. Free t4 low. order levothyroxine 50 daily - patient may need EEG as outpatient. We dont have neurology available at this time. He is at baseline mental status with sun downing. Family stated he is at baseline. He has been afebrile here. ? Check CBC CMP mag in a.m. ? Urinalysis unremarkable. ? IV fluids stopped. ? PT/OT ? Patient did have COVID recently 2 weeks ago. No longer having any respiratory complaints. - Continue to monitor in hospital. - Check PT/OT Full code DVT prophylaxis: Heparin SQ twice daily 05/05 Patient is back to baseline. He may be discharged back to skilled nursing however his skilled nursing has declined to take patient back today. This is most likely secondary to holiday. We will try again tomorrow. At discharge patient to go home on gabapentin 50 twice daily and reduce Seroquel down to 12.5 daily. All other medications should stay the same. Antiepileptic medication levels are still pending. Attestations 2 Medical Necessity Statement*: Pending placement in skilled nursing. Diagnoses Diabetes mellitus type 2 in obese E11.69; E66.9 BPH (benign prostatic hyperplasia) N40.0 Status post left upper extremity amputation Z89.202 Altered mental status R41.82 Weakness R53.1
[2024-05-05 16:00] VITALS: BP 137/76; PULSE 91; TEMP 37.3; O2SAT 95
[2024-05-05 20:00] VITALS: BP 145/76; PULSE 91; RESP 19; TEMP 37.6; O2SAT 95
[2024-05-05] MEDS: quetiapine 25 mg Tablet PO (22:56)
[2024-05-06] VITALS (7 sets, daily range): BP systolic 117–149; BP diastolic 56–77; PULSE 68–93; RESP 16–18; TEMP 36.5–37.3; O2SAT 92–98
[2024-05-06] MEDS: heparin 5,000 unit/mL INJ 1 mL 5000 UNIT SUBCUT (05:07)
[2024-05-06] MEDS: levothyroxine 25 mcg Tablet PO (05:07)
--- NOTE | 2024-05-06 08:37 | P.DS_ITS ---
Discharge Providers Date of Admission: 05/03/24 15:04 Date of Discharge: May 06, 2024 Attending Provider at Admission: Renuka Gruber MD Attending Provider at Discharge: Renuka Gruber MD Primary Care Provider: Arelis Field MD Diagnoses at Discharge Discharge Diagnosis (1) Diabetes mellitus type 2 in obese: Status: Chronic (2) BPH (benign prostatic hyperplasia): Status: Chronic (3) Status post left upper extremity amputation: Status: Acute (4) Altered mental status: Status: Resolved (5) Weakness: Status: Resolved Reason for Visit Reason for Visit: ams Hospital Course Hospital Course Patient was admitted for altered mental status after being recently discharged to a [facility]. He has had recurrent strokes. Please see HPI. Essentially at admission his mental status was back to normal. Over the course of hospitalization all workup was negative. Please see chart for further details. Day 3 of hospital stay patient sister did acknowledge that mentally he was back to his baseline. Patient was sent back to [facility] in stable condition. He was recommended to follow-up with neurology as an outpatient and his primary care doctor. Seroquel was decreased to 12.5 daily at nighttime, gabapentin was reduced to 50 twice daily and levothyroxine was increased to 50 daily. His TSH was quite high but he was recently started on levothyroxine 25 daily. Higher replacement dose was not given secondary to being an elderly patient. He is to see his primary care doctor for further adjustment. Advised him to get TSH rechecked in 6 weeks. Physical Exam Narrative: General: Sleeping HEENT: Normocephalic, atraumatic, EOMI, breathing comfortably on room air. Cardio: Regular rate rhythm, normal S1-S2, Respiratory: Good bilateral air entry, no wheezes no rhonchi appreciated GI: Abdomen soft, nontender, nondistended, bowel sounds + Behavior: Appropriate and cooperative Extremities: 1+ pedal edema b/l , left arm amputation. Discharge Data Studies Completed and Pending Completed Studies During Hospitalization Category Date Time Status CT head wo con* [id number] Stat Cat Scan 05/03/24 11:06 Completed XR chest 1V portable [id number] Stat Exams 05/03/24 11:06 Completed Pending at discharge Category Date Time Status FL guided lumbarpunc dx* [id number] Stat Exams 05/07/24 12:00 Stop Req Blood Culture Stat Lab 05/03/24 11:36 Results Cyto Order Verification Routine Lab 05/03/24 13:47 Ordered KEPPRA [Levetiracetam Immunoassy] Routine Lab 05/03/24 14:16 Received Lacosamide (Vimpat) Routine Lab 05/03/24 14:16 Received Sputum Culture and Gram Stain Stat Lab 05/03/24 13:31 Uncollected West Nile Virus AB Panel,CSF Stat Lab 05/03/24 13:47 Ordered Radiology Impressions Chest X-Ray 05/03/24 11:06 IMPRESSION: 1. No acute cardiopulmonary finding. Head CT 05/03/24 11:06 IMPRESSION: 1. No evidence of intracranial hemorrhage or mass effect. 2. No significant interval changes. 3. Paranasal sinusitis 4. No acute intracranial findings. Laboratory Results WBC 7.19 10^3/uL (3.29-11.43) 05/05/24 10:51 RBC 3.42 10^6/uL (3.85-5.65) L 05/05/24 10:51 Hgb 9.40 g/dL (11.27-16.99) L 05/05/24 10:51 Hct 30.6 % (37-53) L 05/05/24 10:51 MCV 89.5 fl (82-101) 05/05/24 10:51 MCH 27.5 pg (27-33) 05/05/24 10:51 MCHC 30.7 g/dL (30-55) 05/05/24 10:51 RDW 15.0 % (12.1-15.1) 05/05/24 10:51 Plt Count 339 10^3/cmm (157-399) 05/05/24 10:51 MPV 9.2 fL (7.4-10.4) 05/05/24 10:51 Neut % (Auto) 75.4 % 05/05/24 10:51 Lymph % (Auto) 15.2 % 05/05/24 10:51 [place] % (Auto) 7.5 % 05/05/24 10:51 Eos % (Auto) 0.0 % 05/05/24 10:51 Baso % (Auto) 0.8 % 05/05/24 10:51 Neut # (Auto) 5.42 10^3/uL (1.8-7.7) 05/05/24 10:51 Lymph # (Auto) 1.1 10^3/uL (0.8-4.8) 05/05/24 10:51 [place] # (Auto) 0.5 10^3/uL (0.2-0.9) 05/05/24 10:51 Eos # (Auto) 0.0 10^3/uL (0.0-0.8) 05/05/24 10:51 Baso # (Auto) 0.1 10^3/uL (0.0-0.1) 05/05/24 10:51 Nucleated RBC % (auto) 0 % 05/05/24 10:51 Nucleated RBCs # 0.0 /100WBC 05/05/24 10:51 PT 14.70 SECONDS (12.1-14.9) 05/03/24 10:45 INR 1.11 (0.8-1.2) 05/03/24 10:45 Sodium 140 mmol/L (136-145) 05/05/24 10:51 Potassium 3.7 mmol/L (3.5-5.1) 05/05/24 10:51 Chloride 105 mmol/L (98-107) 05/05/24 10:51 Carbon Dioxide 23 mmol/L (22-29) 05/05/24 10:51 Anion Gap 15.7 (5-19) 05/05/24 10:51 BUN 15 mg/dL (8-23) 05/05/24 10:51 Creatinine 1.1 mg/dL (0.7-1.2) 05/05/24 10:51 GFR Calculation Not Reportable 05/05/24 10:51 Glucose 124 mg/dL (65-115) H 05/05/24 10:51 POC Glucose 177 mg/dL (70-110) H 05/03/24 16:20 Calculated Osmolality 292 mOsm/kg (285-295) 05/05/24 10:51 Lactic Acid 1.2 mmol/L (0.5-2.2) 05/03/24 10:45 Calcium 8.4 mg/dL (8.5-10.5) L 05/05/24 10:51 Magnesium 2.0 mg/dL (1.7-2.3) 05/05/24 10:51 Total Bilirubin 0.4 mg/dL (0.15-1.2) 05/04/24 03:40 AST 84 U/L (0-40) H 05/04/24 03:40 ALT 38 U/L (0-41) 05/04/24 03:40 Alkaline Phosphatase 162 U/L (40-130) H 05/04/24 03:40 C-Reactive Protein 384.8 mg/L (0.0-4.9) H 05/03/24 10:45 Total Protein 6.5 g/dL (6.6-8.7) L 05/04/24 03:40 Albumin 3.1 g/dL (3.5-5.2) L 05/04/24 03:40 Globulin 3.4 g/dL (1.3-4.6) 05/04/24 03:40 TSH 34.17 uIU/mL (0.27-4.20) H 05/03/24 10:45 Free T4 0.58 ng/dL (0.82-1.77) L 05/03/24 10:45 Prolactin 10.62 ng/mL (4.0-15.2) 05/03/24 10:45 Random Cortisol 17.83 ug/dL (2.47-19.5) 05/03/24 10:45 Urine Color Yellow (Yellow) 05/03/24 12:34 Urine Appearance Clear (CLEAR) 05/03/24 12:34 Urine pH 5.5 (5-7) 05/03/24 12:34 Ur Specific [place] 1.018 (1.005-1.030) 05/03/24 12:34 Urine Protein Trace (Negative) A 05/03/24 12:34 Urine Glucose (UA) Negative (Normal) 05/03/24 12:34 Urine Ketones Negative (Negative) 05/03/24 12:34 Urine Blood Negative (Negative) 05/03/24 12:34 Urine Nitrate Negative (Negative) 05/03/24 12:34 Urine Bilirubin Negative (Negative) 05/03/24 12:34 Urine Urobilinogen 1.0 mg/dL (Negative) 05/03/24 12:34 Ur Leukocyte Esterase Negative (Negative) 05/03/24 12:34 Urine RBC 0-2 /hpf (0-2) 05/03/24 12:34 Urine WBC 0-5 /hpf (0-5) 05/03/24 12:34 Ur Squamous Epith Cells 0-5 /hpf (0-5) 05/03/24 12:34 Amorphous Sediment Not Reportable 05/03/24 12:34 Urine Bacteria None seen /hpf (NONE) 05/03/24 12:34 Hyaline Casts 0-4 /lpf H 05/03/24 12:34 Vitals Last Vital Signs Temp 99.2 F 05/06/24 07:57 Pulse 70 05/06/24 07:57 Resp 16 05/06/24 07:57 BP 117/56 05/06/24 07:57 Pulse Ox 95 05/06/24 07:57 O2 Del Method Room Air 05/06/24 07:57 Discharge Plan Discharge Patient Disposition: Xfer SNF Condition: Stable Prescriptions: Continued nystatin [Nystop] 100,000 unit/gram Powder 1 applic topical BID 30 Days Qty: 60 0RF atorvastatin 40 mg Tablet 40 mg PO DAILY methocarbamol 500 mg Tablet 500 mg PO BID PRN (Reason: MUSCLE SPASMS) aspirin 81 mg Tablet,Delayed Release (Dr/Ec) 81 mg PO DAILY acetaminophen 500 mg Tablet 1,000 mg PO Q6H PRN (Reason: Pain) magnesium hydroxide [Milk of Magnesia] 400 mg/5 mL Suspension 30 ml PO DAILY PRN (Reason: Constipation) amlodipine 10 mg Tablet 10 mg PO DAILY bisacodyl 10 mg Suppository 10 mg NE DAILY PRN (Reason: Constipation) lidocaine [Lidoderm] 5 % Adhesive Patch,Medicated See Rx Instructions .ROUTE .COMPLEX Rx Instructions: APPLY 1 PATCH TOPICALLY IN THE MORNING AND REMOVE AT BEDTIME. Fleet Enema 19-7 gram/118 mL Enema 118 ml NE DAILY PRN (Reason: Constipation) polyethylene glycol 3350 [Miralax] 17 gram/dose Powder See Rx Instructions .ROUTE .COMPLEX PRN (Reason: Constipation) Rx Instructions: TAKE 17 g (1 CAPFUL) MIXED IN 4 TO 8 OUNCES LIQUID AND DRINK ENTIRE LIQUID DAILY NEEDED FOR CONSTIPATION. bisacodyl 5 mg Tablet 10 mg PO BID PRN (Reason: Constipation) levetiracetam 100 mg/mL Solution 7.5 mg PO BID melatonin 5 mg Tablet 5 mg PO BEDTIME lacosamide [Vimpat] 10 mg/mL Solution 100 mg PO BID clobazam 10 mg Tablet 5 mg PO BID Fiasp U-100 Insulin 100 unit/mL Solution See Rx Instructions .ROUTE .COMPLEX Rx Instructions: INJECT 3 TIMES DAILY PER SLIDING SCALE: BS 181-200= 3UNITS, 201/250= 6UNITS, 251-300= 9UNITS, 301-350= 12UNITS, 351-400= 15UNITS, 401-600= 18UNITS. IF GREATER THAN 400, GIVE 18UNITS AND LET PROVIDER KNOW. potassium chloride 8 mEq Tablet Extended Release 8 meq PO DAILY furosemide [Lasix] 20 mg Tablet 20 mg PO DAILY PRN (Reason: Edema) Changed Seroquel 25 mg Tablet 12.5 mg PO BEDTIME Qty: 15 0RF gabapentin 100 mg Capsule 50 mg PO BID Qty: 30 0RF levothyroxine 25 mcg Tablet 50 mcg PO QAM 30 Days Qty: 30 0RF Held allopurinol 200 mg Tablet 200 mg PO DAILY Hold Instructions: see pcp Discontinued cephalexin [Keflex] 500 mg Capsule 500 mg PO Q6H Discharge Orders: Discharge Order (Routine); Ordered 05/06/24 Ordered By: Renuka Gruber Referrals: Heather Damon MD [Physician] - 7-10 days Arelis Field MD [Primary Care Provider] - 4-7 days Discharge Diet: Cardiac and Diabetic Discharge Activity: Resume usual activity Patient Instructions: Altered Mental Status (ED), Opioid Safety Discharge Attestations Time Spent in Discharge Care*: greater than 30 min Quality Metrics Clinical Quality Measures [ No reported AMI, CVA or VTE this stay] Coding Level of Care Code Acute Code for Chg Fwd Diagnoses Diabetes mellitus type 2 in obese E11.69; E66.9 BPH (benign prostatic hyperplasia) N40.0 Status post left upper extremity amputation Z89.202 Altered mental status R41.82 Weakness R53.1
--- NOTE | 2024-05-06 19:38 | PC.NURSE ---
I came in to give this patient his medications. I was told by shift leader that patient only replied in grunts, which was the case when I spoke to the patient. I went over the medications and popped all of the medications out of their packs. I could not get patient to participate in taking the medication and for the patient's safety, I did not administer the medication as patient would not even open his mouth or look at me to acknowledge it was time to take medication. I held on to the medications for a while, hoping the patient would become more alert and take the medication. After trying two other times, I realized the patient was not going to take the medication. I even spoke to the patient's sister who told me that it was difficult to get the patient to take medications, and sometimes applesauce or pudding worked. At this time, patient was being discharged. I communicated with the intermediate that I could not get the patient to take his medication. I was flexed out early and remembered once I got home that I had not non-admined the medication. Also, when I pulled the patient's Vimpat, I remember counting and then pulling out 4 but when I was putting tablets back into the pyxis, I must have put the other three tablets back in the bin, actually only pulling one. When I got to the patient's room, while scanning his meds, I realized I only had one and knew I would come back and get the other three once the patient had taken the pills I had already popped out. As mentioned above, the patient did not take any medication, so I did not come get the remaining three. All of the pills the patient did not take were put in the pill destroyer liquid, except for the Keppra, which was returned in the pyxis and put in the pharmacy return bin. Why I did not non admin the meds at the time and return them to the pyxis was because I thought patient would become more alert and be able to take them. I did fail to remember to correct my error on the Vimpat in the pyxis though and was reminded when the charge nurse called me this evening. When I went to go waste my medications in the pyxis, patient had been discharged for too long and i was unable to do so. However, as mentioned before, it will be on camera that I dumped the medications in the pll destroyer bottle.
[2024-05-10 14:26] LABS: Levetiracetam Immunoassy 25.6 mcg/mL (6.0-46.0)
[2024-05-17 10:38] LABS: Lacosamide (Vimpat) 19.3 mcg/mL
== END 2024-05-06 16:00 | disposition skilled nursing facility (03) ==
LOC: ER 14:23 → MEDSURG 15:04
PROVIDERS: Admitting Provider Internal Medicine; Emergency Provider Emergency Medicine; PCP Family Medicine; Visit Provider Internal Medicine
DX: R41.82 Altered mental status, unspecified (principal); E11.69 Type 2 diabetes mellitus with other specified complication; E66.9 Obesity, unspecified; Z68.38 Body mass index [BMI] 38.0-38.9, adult; N40.0 Benign prostatic hyperplasia without lower urinary tract symptoms; Z89.202 Acquired absence of left upper limb, unspecified level; R53.1 Weakness; Z86.73 Personal history of transient ischemic attack (TIA), and cerebral infarction without residual deficits; E03.9 Hypothyroidism, unspecified; Z79.82 Long term (current) use of aspirin; Z79.4 Long term (current) use of insulin; Z87.891 Personal history of nicotine dependence; E11.22 Type 2 diabetes mellitus with diabetic chronic kidney disease; N18.9 Chronic kidney disease, unspecified
CPT/HCPCS: 36415; 36416; 70450; 71045; 80048; 80053; 80177; 80299; 81003; 81015; 82533; 82962; 83605; 83735; 84146; 84439; 84443; 85025; 85610; 86140; 87040; 87086; 93005; 96361; 96372; 96374; 96375; 97110; 97161; 97530; 99285; G0378; J1630; J1644; J2405; J7030; J7040